=== PATIENT | male | born 1970 | race Caucasian/White ===

== ENCOUNTER 2018-06-10 16:58 | Inpatient (IN) | payer OTHER ==
[~2018-06-10] VITALS: Ht 162.6 cm; Wt 79.6 kg
[2018-06-10] MEDS ORDERED: ASPIRIN 81 MG TAB PO STA (17:25)
[2018-06-10] MEDS ORDERED: NITROGLYCERIN 2% 1 GM OINT PKT TD STA (17:25)
[2018-06-10] MEDS ORDERED: NITROGLYCERIN (SL) 0.4 MG TAB SL PRN (17:30)
[2018-06-10] MEDS: ASPIRIN 81 MG TAB PO SCH (19:00)
[2018-06-10] MEDS ORDERED: HYDROCODONE/APAP (5/325) TAB PO PRN (19:00)
[2018-06-10] MEDS ORDERED: NACL 0.9% 3 ML SYG IV SCH (19:00)
[2018-06-10] MEDS ORDERED: ZOLPIDEM 5 MG TAB PO PRN (19:00)
[2018-06-10] MEDS ORDERED: ACETAMINOPHEN 325 MG TAB PO PRN ×2 (19:00)
[2018-06-10] MEDS ORDERED: DOCUSATE SODIUM 100 MG CAP PO PRN (19:00)
[2018-06-10] MEDS ORDERED: ONDANSETRON 4 MG INJ IV PRN (19:00)
[2018-06-10] MEDS ORDERED: ONDANSETRON 4 MG TAB PO PRN (19:00)
[2018-06-10] MEDS ORDERED: LORAZEPAM 0.5 MG TAB PO PRN (19:00)
--- NOTE | 2018-06-10 19:08 | ERD ---
ER Documentation Chief Complaint Chief Complaint r. sided cp described as "pressure" rad to rue since last night HPI Patient is a 47-year-old male with diabetes who presents with chest discomfort. He said that he has chest pain in the midsternal area which radiates down his right arm. Its pressure-like pain which started last night. It worsened today. It comes and goes. He has never had this before. He has had no treatment as of yet. He has never had a stress test or cardiac catheterization. Upon review of old medical records this is the patient's first visit to the emergency department. His primary doctor is Dr. Irby. ROS All systems reviewed and are negative except as per history of present illness. Allergies Allergies: Coded Allergies: No Known Allergy (Unverified , 06/10/18) PMhx/Soc Medical and Surgical Hx: pt denies Surgical Hx Hx Miscellaneous Medical Probl: Yes (DM) Hx Alcohol Use: No Hx Substance Use: No Hx Tobacco Use: No Smoking Status: Never smoker FmHx Family History: diabetes, coronary disease Physical Exam Vitals Vital Signs Date Temp Pulse Resp B/P (MAP) Pulse Ox O2 O2 Flow FiO2 Time Delivery Rate 06/10/18 86 16 143/86 96 Room Air 18:37 (105) 06/10/18 Nasal 2 17:30 Cannula 06/10/18 97.5 96 20 162/87 97 17:02 (112) Physical Exam Const: No acute distress Head: Atraumatic Eyes: Normal Conjunctiva ENT: Normal External Ears, Nose and Mouth. Neck: Full range of motion. No meningismus. Resp: Clear to auscultation bilaterally Cardio: Regular rate and rhythm, no murmurs Abd: Soft, non tender, non distended. Normal bowel sounds Skin: No petechiae or rashes Back: No midline or flank tenderness Ext: No cyanosis, or edema Neur: Awake and alert Psych: Normal Mood and Affect Result Diagram: 06/10/18 1734 06/10/18 1734 Results 24 hrs Laboratory Tests Test 06/10/18 17:34 White Blood Count 7.4 10^3/ul Red Blood Count 5.12 10^6/ul Hemoglobin 14.2 g/dl Hematocrit 44.9 % Mean Corpuscular Volume 87.7 fl Mean Corpuscular Hemoglobin 27.7 pg Mean Corpuscular Hemoglobin Concent 31.6 g/dl Red Cell Distribution Width 12.6 % Platelet Count 225 10^3/UL Mean Platelet Volume 9.8 fl Immature Granulocytes % 1.100 % Neutrophils % 63.4 % Lymphocytes % 22.4 % Monocytes % 11.3 % Eosinophils % 1.1 % Basophils % 0.7 % Nucleated Red Blood Cells % 0.0 /100WBC Immature Granulocytes # 0.080 10^3/ul Neutrophils # 4.7 10^3/ul Lymphocytes # 1.7 10^3/ul Monocytes # 0.8 10^3/ul Eosinophils # 0.1 10^3/ul Basophils # 0.1 10^3/ul Nucleated Red Blood Cells # 0.0 10^3/ul Sodium Level 145 mmol/L Potassium Level 4.0 mmol/L Chloride Level 106 mmol/L Carbon Dioxide Level 31 mmol/L Anion Gap 8 Blood Urea Nitrogen 20 mg/dl Creatinine 1.04 mg/dl Est Glomerular Filtrat Rate mL/min > 60 mL/min Glucose Level 145 mg/dl Calcium Level 9.5 mg/dl Troponin I < 0.012 ng/ml Current Medications Medications Dose Sig/Clemencia Start Time Status Last (Trade) Ordered Route PRN Stop Time Admin Dose Reason Admin Aspirin 162 mg ONCE STAT 06/10/18 DC 06/10/18 (Aspirin) PO 17:25 17:40 06/10/18 17:27 1 inch ONCE STAT 06/10/18 DC 06/10/18 Nitroglycerin TD 17:25 17:41 06/10/18 17:27 (Nitroglyceri n 2% Oint) 1 tab Q5M UP TO 3 06/10/18 Nitroglycerin DOSES PRN 17:30 SL .CHEST (Nitroglyceri PAIN n (Sl Tab) 0.4 Mg) Ondansetron 4 mg ER BRIDGE 06/10/18 HCl (Zofran PRN IV 19:00 Inj) NAUSEA/VOMITI 06/11/18 18:59 NG 650 mg ER BRIDGE 06/10/18 Acetaminophen PRN PO 19:00 (Tylenol .MILD PAIN 06/11/18 18:59 Tab) 1-3 OR TEMP Procedures/MDM EKG read by me: Rate/Rhythm: Regular rate and rhythm at a rate of 95 Intervals: Normal Impression: No evidence of ischemia or arrhythmia Chest x-ray read by radiology. Patient is a 47-year-old male with diabetes and family history of cardiac disease who presents with chest pain. I am concerned for potential acute coronary syndrome. I doubt pneumonia, pneumothorax, pulmonary embolism, or aortic dissection. I spoke with Dr. Vail for admission to a telemetry observation bed. The patient was given aspirin nitroglycerin empirically. I spoke with Dr. Pablo from cardiology for consultation per Dr. Vail's request. Departure Diagnosis: Primary Impression: Chest pain Chest pain type: unspecified Qualified Codes: R07.9 - Chest pain, unspecified Condition: MANUEL Arguello MD Jun 10, 2018 19:08
[2018-06-10] MEDS ORDERED: GLUCOSE GEL 15 GRAM TUBE BUCCAL PRN (19:30)
[2018-06-10] MEDS ORDERED: GLUCAGON 1 MG INJ IM PRN (19:30)
[2018-06-10] MEDS ORDERED: DEXTROSE 50% 50 ML SYRINGE IV PRN ×2 (19:30)
[2018-06-10] MEDS ORDERED: GLUCOSE GEL 15 GRAM TUBE PO PRN ×2 (19:30)
[2018-06-10 20:42] VITALS: PULSE 103
[2018-06-10] MEDS: PIOGLITAZONE 30 MG TAB PO SCH (21:00)
[2018-06-10] MEDS ORDERED: ATORVASTATIN 20 MG TAB PO SCH (21:00)
[2018-06-10] MEDS: INSULIN ASPART [NOVOLOG] 3 ML PEN SC SCH (21:00)
[2018-06-10] MEDS ORDERED: HEPARIN 5,000 UNIT/1 ML VIAL SC SCH (21:00)
[2018-06-10 21:11] VITALS: BP 134/74; PULSE 91; RESP 18
[2018-06-10] MEDS: ACCU-CHEK XX SCH (21:20)
[2018-06-10] MEDS: FAMOTIDINE 20 MG TAB PO SCH (22:14)
[2018-06-10] MEDS: FISH OIL 1,000 MG CAP PO SCH (22:15)
[2018-06-10] MEDS: METOPROLOL 25 MG TAB PO SCH (22:16)
[2018-06-10 22:40] VITALS: Ht 162.6 cm; Wt 79.6 kg
[2018-06-11] VITALS (26 sets, daily range): BP systolic 97–140; BP diastolic 52–90; PULSE 20–89; RESP 10–89
[2018-06-11] MEDS: ACCU-CHEK XX SCH ×6 (07:25→19:48)
[2018-06-11] MEDS ORDERED: metFORMIN (XR) 500 MG TAB PO SCH (07:55)
[2018-06-11] MEDS: INSULIN ASPART [NOVOLOG] 3 ML PEN SC SCH ×4 (07:55→20:14)
--- NOTE | 2018-06-11 08:17 | CONS ---
Assessment/Plan Assessment/Plan Hospital Course (Demo Recall) NSTEMI: Classic crescendo angina symptoms with eventual rest pain and now elevated troponin (0.24). 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 He has been having one week of exertional chest pain with rest pain 2 days ago and again more severe yesterday prompting admission. His trops this am have increased to 0.24. He is asymptomatic. No h/o smoking. He is agreeable to cardiac cath for evaluation. per hPI Past Medical History per HPI Medications Current Medications IV Flush (NS 3 ml) 3 ml PER PROTOCOL IV ; Start 06/10/18 at 19:00 Lorazepam (Ativan) 0.5 mg Q8H PRN PO .ANXIETY; Start 06/10/18 at 19:00 Ondansetron HCl (Zofran Tab) 4 mg Q6H PRN PO NAUSEA/VOMITING; Start 06/10/18 at 19:00 Aspirin (Aspirin) 81 mg DAILY PO ; Start 06/10/18 at 19:00 Nitroglycerin (Nitroglycerin (Sl Tab) 0.4 Mg) 1 tab Q5M PRN SL .CHEST PAIN; Start 06/10/18 at 19:00 Acetaminophen (Tylenol Tab) 650 mg Q6H PRN PO .PAIN 1-3 OR TEMP; Start 06/10/18 at 19:00 Acetaminophen/ Hydrocodone Bitart (Herrick (5/325)) 1 tab Q6H PRN PO .PAIN 4-6; Start 06/10/18 at 19:00 Zolpidem Tartrate (Ambien) 5 mg QHS PRN PO .INSOMNIA; Start 06/10/18 at 19:00 Docusate Sodium (Colace) 100 mg Q12H PRN PO .CONSTIPATION; Start 06/10/18 at 19:00 Famotidine (Pepcid) 20 mg Q12 PO Last administered on 06/10/18at 22:14; Admin Dose 20 MG; Start 06/10/18 at 21:00 Heparin Sodium (Porcine) (Heparin (5000 Units/1ml)) 5,000 unit Q12 SC Last administered on 06/10/18at 22:30; Admin Dose 5,000 UNIT; Start 06/10/18 at 21:00 Metoprolol Tartrate (Lopressor) 12.5 mg BID PO Last administered on 06/10/18at 22:16; Admin Dose 12.5 MG; Start 06/10/18 at 21:00 Diagnostic Test (Pha) (Accu-Chek) 1 ea AC MEALS XX ; Start 06/11/18 at 07:00 Diagnostic Test (Pha) (Accu-Chek) 1 ea 2 HOURS AFTER MEALS XX ; Start 06/10/18 at 20:00 Metformin HCl (Glucophage Xr) 500 mg BID WITH MEALS PO ; Start 06/11/18 at 07:55 Pioglitazone HCl (Actos) 30 mg QHS PO ; Start 06/10/18 at 21:00 Atorvastatin Calcium (Lipitor) 20 mg QHS PO Last administered on 06/10/18at 22:15; Admin Dose 20 MG; Start 06/10/18 at 21:00 Empaglifozin (Jardiance) 10 mg DAILY@08 PO ; Start 06/11/18 at 08:00 Fish Oil (Fish Oil) 2,000 mg BID PO Last administered on 06/10/18at 22:15; Admin Dose 2,000 MG; Start 06/10/18 at 21:00 Insulin Aspart (Novolog Insulin Pen) NOVOLOG *MODERATE* ALGORITHM WITH MEALS BEDTIME SC ; Start 06/10/18 at 21:00 Miscellaneous Information 1 ea NOTE XX ; Start 06/10/18 at 19:30 Glucose (Glutose) 15 gm Q15M PRN PO DECREASED GLUCOSE; Start 06/10/18 at 19:30 Glucose (Glutose) 22.5 gm Q15M PRN PO DECREASED GLUCOSE; Start 06/10/18 at 19:30 Dextrose (D50w Syringe) 25 ml Q15M PRN IV DECREASED GLUCOSE; Start 06/10/18 at 19:30 Dextrose (D50w Syringe) 50 ml Q15M PRN IV DECREASED GLUCOSE; Start 06/10/18 at 19:30 Glucagon (Glucagen) 1 mg Q15M PRN IM DECREASED GLUCOSE; Start 06/10/18 at 19:30 Glucose (Glutose) 15 gm Q15M PRN BUCCAL DECREASED GLUCOSE; Start 06/10/18 at 19:30 Allergies: Coded Allergies: No Known Allergy (Unverified , 06/10/18) Social History Smoking Status: Former smoker Exam/Review of Systems Vital Signs Vitals Vital Signs Date Temp Pulse Resp B/P (MAP) Pulse Ox O2 O2 Flow FiO2 Time Delivery Rate 06/11/18 98.3 81 20 117/71 95 07:37 (86) 06/10/18 Room Air 21:11 06/10/18 2 17:30 Exam Constitutional: alert, oriented Psych: no complaints, nl mood/affect Head: normocephalic, atraumatic Neck: supple; No jvd Respiratory: clear to auscultation; No crackles/rales Cardiovascular: regular rate and rhythm; No edema, No systolic murmur Gastrointestinal: soft, non-tender; No distended Musculoskeletal: nl extremities to inspection 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: nl mental status, nl speech Skin: No rash or lesions Labs Result Diagram: 06/11/18 0614 06/10/18 1734 Results 24hrs Laboratory Tests Test 06/10/18 17:30 06/10/18 17:34 06/10/18 21:28 06/10/18 23:14 Creatine Kinase 306 H 302 H Creatinine Kinase MB 1.77 2.01 (Mass) White Blood Count 7.4 Red Blood Count 5.12 Hemoglobin 14.2 Hematocrit 44.9 Mean Corpuscular 87.7 Volume Mean Corpuscular 27.7 L Hemoglobin Mean Corpuscular 31.6 L Hemoglobin Concent Red Cell 12.6 Distribution Width Platelet Count 225 Mean Platelet Volume 9.8 Immature 1.100 H Granulocytes % Neutrophils % 63.4 Lymphocytes % 22.4 Monocytes % 11.3 H Eosinophils % 1.1 Basophils % 0.7 Nucleated Red Blood 0.0 Cells % Immature 0.080 H Granulocytes # Neutrophils # 4.7 Lymphocytes # 1.7 Monocytes # 0.8 Eosinophils # 0.1 Basophils # 0.1 Nucleated Red Blood 0.0 Cells # Sodium Level 145 H Potassium Level 4.0 Chloride Level 106 Carbon Dioxide Level 31 Anion Gap 8 Blood Urea Nitrogen 20 Creatinine 1.04 Est Glomerular > 60 Filtrat Rate mL/min Glucose Level 145 Calcium Level 9.5 Troponin I < 0.012 0.077 Bedside Glucose 115 Creatine Kinase 0.7 Index Test 06/11/18 06:14 06/11/18 07:35 White Blood Count 6.3 Red Blood Count 4.64 L Hemoglobin 13.0 L Hematocrit 40.7 L Mean Corpuscular 87.7 Volume Mean Corpuscular 28.0 L Hemoglobin Mean Corpuscular 31.9 L Hemoglobin Concent Red Cell 12.7 Distribution Width Platelet Count 193 Mean Platelet Volume 10.2 Immature 0.900 H Granulocytes % Neutrophils % 59.8 Lymphocytes % 27.9 Monocytes % 9.5 Eosinophils % 1.4 Basophils % 0.5 Nucleated Red Blood 0.0 Cells % Immature 0.060 H Granulocytes # Neutrophils # 3.8 Lymphocytes # 1.8 Monocytes # 0.6 Eosinophils # 0.1 Basophils # 0.0 Nucleated Red Blood 0.0 Cells # Creatine Kinase 309 H Creatine Kinase 0.8 Index Creatinine Kinase MB 2.46 H (Mass) Troponin I 0.242 *H Bedside Glucose 112 Imaging Imaging EKG: sinus, no acute ST changes Medications Medications Current Medications IV Flush (NS 3 ml) 3 ml PER PROTOCOL IV ; Start 06/10/18 at 19:00 Lorazepam (Ativan) 0.5 mg Q8H PRN PO .ANXIETY; Start 06/10/18 at 19:00 Ondansetron HCl (Zofran Tab) 4 mg Q6H PRN PO NAUSEA/VOMITING; Start 06/10/18 at 19:00 Aspirin (Aspirin) 81 mg DAILY PO ; Start 06/10/18 at 19:00 Nitroglycerin (Nitroglycerin (Sl Tab) 0.4 Mg) 1 tab Q5M PRN SL .CHEST PAIN; Start 06/10/18 at 19:00 Acetaminophen (Tylenol Tab) 650 mg Q6H PRN PO .PAIN 1-3 OR TEMP; Start 06/10/18 at 19:00 Acetaminophen/ Hydrocodone Bitart (Herrick (5/325)) 1 tab Q6H PRN PO .PAIN 4-6; Start 06/10/18 at 19:00 Zolpidem Tartrate (Ambien) 5 mg QHS PRN PO .INSOMNIA; Start 06/10/18 at 19:00 Docusate Sodium (Colace) 100 mg Q12H PRN PO .CONSTIPATION; Start 06/10/18 at 19:00 Famotidine (Pepcid) 20 mg Q12 PO Last administered on 06/10/18at 22:14; Admin Dose 20 MG; Start 06/10/18 at 21:00 Heparin Sodium (Porcine) (Heparin (5000 Units/1ml)) 5,000 unit Q12 SC Last administered on 06/10/18at 22:30; Admin Dose 5,000 UNIT; Start 06/10/18 at 21:00 Metoprolol Tartrate (Lopressor) 12.5 mg BID PO Last administered on 06/10/18at 22:16; Admin Dose 12.5 MG; Start 06/10/18 at 21:00 Diagnostic Test (Pha) (Accu-Chek) 1 ea AC MEALS XX ; Start 06/11/18 at 07:00 Diagnostic Test (Pha) (Accu-Chek) 1 ea 2 HOURS AFTER MEALS XX ; Start 06/10/18 at 20:00 Metformin HCl (Glucophage Xr) 500 mg BID WITH MEALS PO ; Start 06/11/18 at 07:55 Pioglitazone HCl (Actos) 30 mg QHS PO ; Start 06/10/18 at 21:00 Atorvastatin Calcium (Lipitor) 20 mg QHS PO Last administered on 06/10/18at 22:15; Admin Dose 20 MG; Start 06/10/18 at 21:00 Empaglifozin (Jardiance) 10 mg DAILY@08 PO ; Start 06/11/18 at 08:00 Fish Oil (Fish Oil) 2,000 mg BID PO Last administered on 06/10/18at 22:15; Admin Dose 2,000 MG; Start 06/10/18 at 21:00 Insulin Aspart (Novolog Insulin Pen) NOVOLOG *MODERATE* ALGORITHM WITH MEALS BEDTIME SC ; Start 06/10/18 at 21:00 Miscellaneous Information 1 ea NOTE XX ; Start 06/10/18 at 19:30 Glucose (Glutose) 15 gm Q15M PRN PO DECREASED GLUCOSE; Start 06/10/18 at 19:30 Glucose (Glutose) 22.5 gm Q15M PRN PO DECREASED GLUCOSE; Start 06/10/18 at 19:30 Dextrose (D50w Syringe) 25 ml Q15M PRN IV DECREASED GLUCOSE; Start 06/10/18 at 19:30 Dextrose (D50w Syringe) 50 ml Q15M PRN IV DECREASED GLUCOSE; Start 06/10/18 at 19:30 Glucagon (Glucagen) 1 mg Q15M PRN IM DECREASED GLUCOSE; Start 06/10/18 at 19:30 Glucose (Glutose) 15 gm Q15M PRN BUCCAL DECREASED GLUCOSE; Start 06/10/18 at 1 9:30 NOEL TEIXEIRA Jun 11, 2018 08:17
[2018-06-11] MEDS ORDERED: VERAPAMIL 5 MG INJ ONE (08:27)
[2018-06-11] MEDS ORDERED: MIDAZOLAM 1 MG/ML 2 ML INJ ONE (08:27)
[2018-06-11] MEDS ORDERED: FENTAnyl 50 MCG/ML VIAL ONE (08:27)
[2018-06-11] MEDS ORDERED: LIDOCAINE 1% (MDV) 20 ML INJ ONE (08:27)
[2018-06-11] MEDS ORDERED: HEPARIN 1000 UNITS/NS (A-LINE) 1,000 ML ONE (08:27)
[2018-06-11] MEDS ORDERED: HEPARIN 1000 UNITS/ML 10 ML INJ ONE (08:27)
[2018-06-11] MEDS ORDERED: NITROGLYCERIN (IC) 100 MCG/ML INJ ONE (08:28)
[2018-06-11] MEDS ORDERED: IOHEXOL 350MG/ML 50 ML BTL ONE (09:37)
--- NOTE | 2018-06-11 10:23 | OPR ---
Date/Time of Note Date/Time of Note DATE: 06/11/18 TIME: 10:09 Operative Report Procedure Date: Jun 11, 2018 Preoperative Diagnosis NSTEMI Postoperative Diagnosis NSTEMI Operation/Procedure Performed see details Surgeon see signature line Can Machine Operator none Anesthesia Type: moderate sedation Estimated Blood Loss: minimal Transfusion none Specimen none Grafts/Implants none Complications none Procedure Description Procedure Date:06/11/18 Cracker Off/surgeon:Scottie Pablo MD. Procedures Performed: 1)Left heart catheterization with selective left and right coronary angiography. 2)Left ventricle angiography 3)RIght femoral angiography with Perclose closure device Pre-operative Diagnosis:NSTEMI Post-operative Diagnosis:NSTEMI Indications: 47 yo M with DM, HL, presenting with chest pain, found to have an NSTEMI. Description of Procedure: After informed consent, the patient was brought to the cardiac catheterization lab. The procedure site was prepped and draped in usual manner. The patient was premedicated with versed 1 mg and fentanyl 50 mcg. 2mL lidocaine was injected into the right wrist. Next using the posterior wall technique, the 6/5 paragu[place] sheath was inserted into the right radial artery. The J wire met resistance so it was switched for a baby J glide instead. It was noted he had a radial artery loop which was eventually straightened out with the wire and the JR catheter advanced and RCA images obtained. The JL would not advance and was causing discomfort. Right arm angiography revealed that the wire was connecting through a small artery or there was significant spasm. In any case, this was aborted and the access switched to right femoral instead. Through the Seldinger technique, the 6 paragu[place] sheath was inserted into the right femoral artery. Next using the JL3.5, selective angiography of the left coron bella artery was obtained. The pigtail was then advanced into the ventricle and hemodynamics obtained. Left ventricle angiography was obtained. Next all equipment was removed and hemostasis was obtained by TR band in the right wrist and Perclose in the right groin after right femoral angiography revealed insertion into the common femoral. Findings: Anatomy/Hemodynamics: Left main: normal LAD:mid 80% right after a large diagonal Diagonal:large vessel, luminal irregularities Circumflex:luminal irregularities Obtuse marginal:large trifurcating vessel with prox 100% HEAD UP OPERATOR HELPER with left-left collaterals to 2 of the inferior branches RCA:luminal irregularities PDA: mid 95-99% PLV:luminal irregularities LV angiography:EF 60%, very mild inferior hypokinesis LV-Ao: no significant gradient LVEDP:10 mmHg Contrast used:75 mL Fluoroscopy time:5 min Estimated blood loss<10 mL. Specimen: none Grafts/implants: none Complications: none Assessment: NSTEMI/CAD: Three vessel CAD in a diabetic patient is appropriate for CABG eval. Though he is young and the lesions are amenable to PCI, he may benefit most from CABG DM HL Plan: -CABG eval -ASA, lipitor -imdur -heparin drip 6 hours post procedure if groin and wrist are ok as the PDA lesion appears tight and possibly unstable. No current symptoms SCOTTIE PABLO Jun 11, 2018 10:23
[2018-06-11] MEDS ORDERED: HEPARIN 25000 UNITS/250 ML 250 ML IV SCH (10:30)
--- NOTE | 2018-06-11 11:37 | RADRPT ---
Echocardiogram Report Patient Name: GUS SERRANOPatient ID: [id number] : 1970 (47y 11m)Study Date: 06/11/2018 7:18:54 AM Gender: MAccession #: [id number] Tech: Marcelo Childs RDCS Location: [facility] Ref.Physician: SRIKANTH HERNANDEZ Height(Cm): BSA: Weight(Kg): Quality: AdequateAccount #: Procedures: Echocardiographic Report: Transthoracic echocardiogram with complete 2D, M-Mode, and doppler examination. Indications: Chest Pain. Measurements: 2D/M Mode Doppler Measurement Value Normal Range Measurement Value Normal Range LVIDd 2D 3.6 [ 4.2 - 5.8 ] cm AV Peak Garry 1.2 [ 100.0 - 170.0 ] cm/sec LVIDs 2D 2.8 [ 2.5 - 4.0 ] cm AV Peak PG 6.0 [ 2.0 - 9.0 ] mmHg LVPWd 2D 1.2 [ 0.6 - 1.0 ] cm LVOT Peak Garry 0.9 [ 70.0 - 110.0 ] cm/sec IVSd 2D 1.3 [ 0.6 - 1.0 ] cm LVOT Peak PG 3.0 [ 2.0 - 6.0 ] mmHg AoR Diam 2D 2.7 [ 2.6 - 3.4 ] cm MV E Peak Garry 0.6 [ 60.0 - 130.0 ] cm/sec EDV 2D 55.5 [ 62.0 - 150.0 ] ml MV A Peak Garry 0.7 [ 100.0 - 120.0 ] cm/sec ESV 2D 30.9 [ 21.0 - 61.0 ] ml MV E/A 0.9 [ 0.8 - 1.5 ] ratio EF 2D 44.3 [ 52.0 - 72.0 ] percent MV Decel Time 165 [ 104 - 258 ] msec LA Dimen 2D 2.7 [ 3.0 - 4.0 ] cm Lat E` Garry 0.1 [ 10.0 - 15.0 ] cm/sec Lateral E/E` 6.0 [ 1.0 - 2.0 ] ratio MV E/A 0.9 [ 0.8 - 1.5 ] ratio Findings: Left Ventricle: Normal left ventricular systolic function. Normal left ventricular cavity size. Mild concentric left ventricular hypertrophy. Ejection fraction is visually estimated at 60 %. Tissue Doppler/Mitral Doppler indices are within normal limits. Right Ventricle: Normal right ventricular size. Normal right ventricular systolic function. Left Atrium: The left atrium is normal in size. Right Atrium: There is mild enlargement of right atrium. Mitral Valve: Normal appearance of the mitral valve. Normal appearance and function of the mitral valve with trace physiologic regurgitation. Aortic Valve: Normal appearance of the aortic valve. No significant aortic stenosis or insufficiency. Tricuspid Valve: Normal appearance of the tricuspid valve. Unable to obtain RVSP due to minimal presence of tricuspid regurgitation. No evidence of tricuspid regurgitation. Pulmonic Valve: Normal pulmonic valve appearance. Pericardium: Normal pericardium with no significant pericardial effusion. Aorta: Normal aortic root. IVC: Normal size and normal respiratory collapse consistent with normal right atrial pressure. Conclusions: Normal left ventricular systolic function. Normal left ventricular cavity size. Mild concentric left ventricular hypertrophy. Ejection fraction is visually estimated at 60 %. Tissue Doppler/Mitral Doppler indices are within normal limits. No significant valvular stenosis or regurgitation seen. Unable to obtain RVSP due to minimal presence of tricuspid regurgitation. Normal size and normal respiratory collapse consistent with normal right atrial pressure. Electronically Signed By: Scottie Pablo 2018-06-11 11:37:12 PDT
[2018-06-11] MEDS: NITROGLYCERIN (SL) 0.4 MG TAB SL PRN ×2 (12:15→14:06)
[2018-06-11] MEDS: ASPIRIN 81 MG TAB PO SCH (12:41)
[2018-06-11] MEDS: FISH OIL 1,000 MG CAP PO SCH ×2 (12:41→20:13)
[2018-06-11] MEDS: FAMOTIDINE 20 MG TAB PO SCH ×2 (12:43→20:13)
[2018-06-11] MEDS: FENOFIBRATE 145 MG TAB PO SCH (12:43)
[2018-06-11] MEDS: METOPROLOL 25 MG TAB PO SCH ×2 (12:43→20:14)
[2018-06-11] MEDS: EMPAGLIFLOZIN 10 MG TABLET PO SCH (13:03)
[2018-06-11] MEDS: ISOSORBIDE MONONITRATE(SR)30 MG TAB PO SCH (13:03)
[2018-06-11] MEDS ORDERED: HEPARIN 1000 UNITS/ML 10 ML INJ IV PRN (16:00)
[2018-06-11] MEDS ORDERED: HEPARIN 1000 UNITS/ML 10 ML INJ IV ONE (16:00)
--- NOTE | 2018-06-11 16:05 | CONS ---
Assessment/Plan Assessment/Plan Assessment/Plan (Daily) 47 year old male admitted with NSTEMI and found to have diffuse 3V CAD. His anatomy is such that would make him a poor candidate for surgical revascularization. I would recommend medical management or PCI of PDA and medical management. His OM and LAD are diffusely diseased and his PDA is quite distal for surgical revascularization Consultation Date/Type/Reason Admit Date/Time Jun 10, 2018 at 18:46 Date of Consultation: Jun 11, [address] surgery Reason for Consultation eval for cabg Date/Time of Note DATE: 06/11/18 TIME: 15:59 Hx of Present Illness 47 year old male with history of DM admitted with chest pain and ruled in for NSTEMI. Cath today shows distal PDA stenosis of 90%, occluded OM, very diffusely diseased and diffusely diseased bifid LAD. EF normal. We are asked to see patient regarding CABG. ENT: no complaints Respiratory: no complaints Cardiovascular: chest pain Gastrointestinal: no complaints Genitourinary: no complaints Musculoskeletal: no complaints Skin: no complaints Neurologic: no complaints Endocrine: no complaints Lymphatic: no complaints Psychological: no complaints, nl mood/affect Immunologic: no complaints Past Medical History Medical History: coronary artery disease, diabetes, high cholesterol Medications Current Medications IV Flush (NS 3 ml) 3 ml PER PROTOCOL IV ; Start 06/10/18 at 19:00 Lorazepam (Ativan) 0.5 mg Q8H PRN PO .ANXIETY; Start 06/10/18 at 19:00 Ondansetron HCl (Zofran Tab) 4 mg Q6H PRN PO NAUSEA/VOMITING; Start 06/10/18 at 19:00 Aspirin (Aspirin) 81 mg DAILY PO Last administered on 06/11/18at 12:41; Admin Dose 81 MG; Start 06/10/18 at 19:00 Nitroglycerin (Nitroglycerin (Sl Tab) 0.4 Mg) 1 tab Q5M PRN SL .CHEST PAIN Last administered on 06/11/18at 14:06; Admin Dose 1 TAB; Start 06/10/18 at 19:00 Acetaminophen (Tylenol Tab) 650 mg Q6H PRN PO .PAIN 1-3 OR TEMP; Start 06/10/18 at 19:00 Acetaminophen/ Hydrocodone Bitart ([place] (5/325)) 1 tab Q6H PRN PO .PAIN 4-6; Start 06/10/18 at 19:00 Zolpidem Tartrate (Ambien) 5 mg QHS PRN PO .INSOMNIA; Start 06/10/18 at 19:00 Docusate Sodium (Colace) 100 mg Q12H PRN PO .CONSTIPATION; Start 06/10/18 at 19:00 Famotidine (Pepcid) 20 mg Q12 PO Last administered on 06/11/18at 12:43; Admin Dose 20 MG; Start 06/10/18 at 21:00 Metoprolol Tartrate (Lopressor) 12.5 mg BID PO Last administered on 06/11/18at 12:43; Admin Dose 12.5 MG; Start 06/10/18 at 21:00 Diagnostic Test (Pha) (Accu-Chek) 1 ea AC MEALS XX Last administered on 06/11/18at 11:20; Admin Dose 1 EA; Start 06/11/18 at 07:00 Diagnostic Test (Pha) (Accu-Chek) 1 ea 2 HOURS AFTER MEALS XX ; Start 06/10/18 at 20:00 Pioglitazone HCl (Actos) 30 mg QHS PO ; Start 06/10/18 at 21:00 Empaglifozin (Jardiance) 10 mg DAILY@08 PO Last administered on 06/11/18at 13:03; Admin Dose 10 MG; Start 06/11/18 at 08:00 Fish Oil (Fish Oil) 2,000 mg BID PO Last administered on 06/11/18at 12:41; Admin Dose 2,000 MG; Start 06/10/18 at 21:00 Insulin Aspart (Novolog Insulin Pen) NOVOLOG *MODERATE* ALGORITHM WITH MEALS BEDTIME SC ; Start 06/10/18 at 21:00 Miscellaneous Information 1 ea NOTE XX ; Start 06/10/18 at 19:30 Glucose (Glutose) 15 gm Q15M PRN PO DECREASED GLUCOSE; Start 06/10/18 at 19:30 Glucose (Glutose) 22.5 gm Q15M PRN PO DECREASED GLUCOSE; Start 06/10/18 at 19:30 Dextrose (D50w Syringe) 25 ml Q15M PRN IV DECREASED GLUCOSE; Start 06/10/18 at 19:30 Dextrose (D50w Syringe) 50 ml Q15M PRN IV DECREASED GLUCOSE; Start 06/10/18 at 19:30 Glucagon (Glucagen) 1 mg Q15M PRN IM DECREASED GLUCOSE; Start 06/10/18 at 19:30 Glucose (Glutose) 15 gm Q15M PRN BUCCAL DECREASED GLUCOSE; Start 06/10/18 at 19:30 Fenofibrate (Tricor) 145 mg DAILY PO Last administered on 06/11/18at 12:43; Admin Dose 145 MG; Start 06/11/18 at 09:00 Isosorbide Mononitrate (Imdur) 30 mg DAILY PO Last administered on 06/11/18at 13:03; Admin Dose 30 MG; Start 06/11/18 at 10:30 Atorvastatin Calcium (Lipitor) 40 mg QHS PO ; Start 06/11/18 at 21:00 Heparin Sodium (Porcine) (Heparin (1000 Units/ml)) 4,000 unit ONCE ONCE IV ; Start 06/11/18 at 16:00; Stop 06/11/18 at 16:01 Heparin Sodium (Porcine) (Heparin (1000 Units/ml)) 4,000 unit PER PROTOCOL PRN IV aPTT<47; Start 06/11/18 at 16:00 Heparin Sodium (Porcine) 250 ml @ 0 mls/hr PER PROTOCOL IV ; Start 06/11/18 at 10:30 Insulin Human Regular 100 unit/ Sodium Chloride 100 ml @ 0 mls/hr Q0M ONCE IVPB ; Start 06/12/18 at 11:30; Stop 06/12/18 at 11:31 Norepinephrine 250 ml @ 0 mls/hr ONCE ONCE IV ; Start 06/12/18 at 11:30; Stop 06/12/18 at 11:31 Epinephrine 4 mg/ Dextrose 250 ml @ 0 mls/hr Q0M ONCE IV ; Start 06/12/18 at 11:30; Stop 06/12/18 at 11:31 Phenylephrine HCl 250 ml @ 0 mls/hr ONCE ONCE IV ; Start 06/12/18 at 11:30; Stop 06/12/18 at 11:31 Aspirin (Aspirin) 600 mg ONCE ONCE [place] ; Start 06/12/18 at 11:30; Stop 06/12/18 at 11:31 Heparin Sodium (Porcine) 93067 unit/Milrinone Lactate 10 mg/ Sodium Chloride 1,011 ml @ 0 mls/hr ONCE ONCE SC ; Start 06/12/18 at 11:30; Stop 06/12/18 at 11:31 Milrinone Lactate 2 mg/Sodium Chloride 52 ml @ 0 mls/hr ONCE ONCE IV ; Start 06/12/18 at 11:30; Stop 06/12/18 at 11:31 Allergies: Coded Allergies: No Known Allergy (Unverified , 06/10/18) Past Surgical History Past Surgical Hx: no surgical history Family History Significant Family History: no pertinent family hx Social History Alcohol Use: rarely Smoking Status: Former smoker Drug Use: none Exam/Review of Systems Exam Vitals Vital Signs Date Temp Pulse Resp B/P (MAP) Pulse Ox O2 O2 Flow FiO2 Time Delivery Rate 06/11/18 98.4 73 20 126/82 96 12:23 (97) 06/11/18 Room Air 11:56 06/10/18 2 17:30 Constitutional: alert, oriented, well developed Psych: no complaints, nl mood/affect Head: normocephalic, atraumatic Eyes: nl conjunctiva, EOMI, nl lids, nl sclera, PERRL ENMT: nl external ears & nose, nl lips & teeth, nl nasal mucosa & septum Neck: supple, non-tender Respiratory: clear to auscultation, normal air movement Cardiovascular: regular rate and rhythm, nl pulses Gastrointestinal: soft, nl liver, spleen, non-tender Musculoskeletal: nl extremities to inspection, nl gait and stance Extremities: normal pulses 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: EN[employer]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 intact, nl mental status, nl speech, nl strength Skin: nl turgor; No rash or lesions Lymph: nl lymph nodes Results Result Diagram: 06/11/18 1245 06/11/18 0614 Results 24hrs Laboratory Tests Test 06/10/18 17:30 06/10/18 17:34 06/10/18 21:28 06/10/18 23:14 Creatine Kinase 306 H 302 H Creatinine Kinase MB 1.77 2.01 (Mass) White Blood Count 7.4 Red Blood Count 5.12 Hemoglobin 14.2 Hematocrit 44.9 Mean Corpuscular 87.7 Volume Mean Corpuscular 27.7 L Hemoglobin Mean Corpuscular 31.6 L Hemoglobin Concent Red Cell 12.6 Distribution Width Platelet Count 225 Mean Platelet Volume 9.8 Immature 1.100 H Granulocytes % Neutrophils % 63.4 Lymphocytes % 22.4 Monocytes % 11.3 H Eosinophils % 1.1 Basophils % 0.7 Nucleated Red Blood 0.0 Cells % Immature 0.080 H Granulocytes # Neutrophils # 4.7 Lymphocytes # 1.7 Monocytes # 0.8 Eosinophils # 0.1 Basophils # 0.1 Nucleated Red Blood 0.0 Cells # Sodium Level 145 H Potassium Level 4.0 Chloride Level 106 Carbon Dioxide Level 31 Anion Gap 8 Blood Urea Nitrogen 20 Creatinine 1.04 Est Glomerular > 60 Filtrat Rate mL/min Glucose Level 145 Calcium Level 9.5 Troponin I < 0.012 0.077 Bedside Glucose 115 Creatine Kinase 0.7 Index Test 06/11/18 06:14 06/11/18 07:35 06/11/18 10:50 06/11/18 12:45 White Blood Count 6.3 8.2 # Red Blood Count 4.64 L 4.93 Hemoglobin 13.0 L 13.7 L Hematocrit 40.7 L 43.0 Mean Corpuscular 87.7 87.2 Volume Mean Corpuscular 28.0 L 27.8 L Hemoglobin Mean Corpuscular 31.9 L 31.9 L Hemoglobin Concent Red Cell 12.7 12.8 Distribution Width Platelet Count 193 231 Mean Platelet Volume 10.2 10.3 Immature 0.900 H 0.900 H Granulocytes % Neutrophils % 59.8 67.9 Lymphocytes % 27.9 21.2 Monocytes % 9.5 8.8 Eosinophils % 1.4 0.7 Basophils % 0.5 0.5 Nucleated Red Blood 0.0 0.0 Cells % Immature 0.060 H 0.070 H Granulocytes # Neutrophils # 3.8 5.6 Lymphocytes # 1.8 1.7 Monocytes # 0.6 0.7 Eosinophils # 0.1 0.1 Basophils # 0.0 0.0 Nucleated Red Blood 0.0 0.0 Cells # Sodium Level 144 Potassium Level 4.1 Chloride Level 109 Carbon Dioxide Level 27 Anion Gap 8 Blood Urea Nitrogen 19 Creatinine 0.89 Est Glomerular > 60 Filtrat Rate mL/min Glucose Level 108 Hemoglobin A1c 7.5 H Calcium Level 9.3 Total Bilirubin 0.2 Direct Bilirubin 0.00 Indirect Bilirubin 0.2 Aspartate Amino 24 Transf (AST/SGOT) Alanine 47 Aminotransferase (AL T/SGPT) Alkaline Phosphatase 41 L Creatine Kinase 309 H Pending Creatine Kinase 0.8 Pending Index Creatinine Kinase MB 2.46 H 2.12 (Mass) Troponin I 0.242 *H 0.111 Total Protein 6.1 Albumin 3.8 Globulin 2.30 Albumin/Globulin 1.65 Ratio Bedside Glucose 112 118 Prothrombin Time 11.8 L Prothrombin Time 0.9 Ratio INR International 0.86 Normalized Ratio Activated 25.8 Partial Thromboplast Time Test 06/11/18 15:03 Bedside Glucose 174 Medications Medication Current Medications IV Flush (NS 3 ml) 3 ml PER PROTOCOL IV ; Start 06/10/18 at 19:00 Lorazepam (Ativan) 0.5 mg Q8H PRN PO .ANXIETY; Start 06/10/18 at 19:00 Ondansetron HCl (Zofran Tab) 4 mg Q6H PRN PO NAUSEA/VOMITING; Start 06/10/18 at 19:00 Aspirin (Aspirin) 81 mg DAILY PO Last administered on 06/11/18at 12:41; Admin Dose 81 MG; Start 06/10/18 at 19:00 Nitroglycerin (Nitroglycerin (Sl Tab) 0.4 Mg) 1 tab Q5M PRN SL .CHEST PAIN Last administered on 06/11/18at 14:06; Admin Dose 1 TAB; Start 06/10/18 at 19:00 Acetaminophen (Tylenol Tab) 650 mg Q6H PRN PO .PAIN 1-3 OR TEMP; Start 06/10/18 at 19:00 Acetaminophen/ Hydrocodone Bitart ([place] (5/325)) 1 tab Q6H PRN PO .PAIN 4-6; Start 06/10/18 at 19:00 Zolpidem Tartrate (Ambien) 5 mg QHS PRN PO .INSOMNIA; Start 06/10/18 at 19:00 Docusate Sodium (Colace) 100 mg Q12H PRN PO .CONSTIPATION; Start 06/10/18 at 19:00 Famotidine (Pepcid) 20 mg Q12 PO Last administered on 06/11/18at 12:43; Admin Dose 20 MG; Start 06/10/18 at 21:00 Metoprolol Tartrate (Lopressor) 12.5 mg BID PO Last administered on 06/11/18 12:43; Admin Dose 12.5 MG; Start 06/10/18 at 21:00 Diagnostic Test (Pha) (Accu-Chek) 1 ea AC MEALS XX Last administered on 06/11/18at 11:20; Admin Dose 1 EA; Start 06/11/18 at 07:00 Diagnostic Test (Pha) (Accu-Chek) 1 ea 2 HOURS AFTER MEALS XX ; Start 06/10/18 at 20:00 Pioglitazone HCl (Actos) 30 mg QHS PO ; Start 06/10/18 at 21:00 Empaglifozin (Jardiance) 10 mg DAILY@08 PO Last administered on 06/11/18at 13:03; Admin Dose 10 MG; Start 06/11/18 at 08:00 Fish Oil (Fish Oil) 2,000 mg BID PO Last administered on 06/11/18at 12:41; Admin Dose 2,000 MG; Start 06/10/18 at 21:00 Insulin Aspart (Novolog Insulin Pen) NOVOLOG *MODERATE* ALGORITHM WITH MEALS BEDTIME SC ; Start 06/10/18 at 21:00 Miscellaneous Information 1 ea NOTE XX ; Start 06/10/18 at 19:30 Glucose (Glutose) 15 gm Q15M PRN PO DECREASED GLUCOSE; Start 06/10/18 at 19:30 Glucose (Glutose) 22.5 gm Q15M PRN PO DECREASED GLUCOSE; Start 06/10/18 at 19:30 Dextrose (D50w Syringe) 25 ml Q15M PRN IV DECREASED GLUCOSE; Start 06/10/18 at 19:30 Dextrose (D50w Syringe) 50 ml Q15M PRN IV DECREASED GLUCOSE; Start 06/10/18 at 19:30 Glucagon (Glucagen) 1 mg Q15M PRN IM DECREASED GLUCOSE; Start 06/10/18 at 19:30 Glucose (Glutose) 15 gm Q15M PRN BUCCAL DECREASED GLUCOSE; Start 06/10/18 at 19:30 Fenofibrate (Tricor) 145 mg DAILY PO Last administered on 06/11/18at 12:43; Admin Dose 145 MG; Start 06/11/18 at 09:00 Isosorbide Mononitrate (Imdur) 30 mg DAILY PO Last administered on 06/11/18at 13:03; Admin Dose 30 MG; Start 06/11/18 at 10:30 Atorvastatin Calcium (Lipitor) 40 mg QHS PO ; Start 06/11/18 at 21:00 Heparin Sodium (Porcine) (Heparin (1000 Units/ml)) 4,000 unit ONCE ONCE IV ; Start 06/11/18 at 16:00; Stop 06/11/18 at 16:01 Heparin Sodium (Porcine) (Heparin (1000 Units/ml)) 4,000 unit PER PROTOCOL PRN IV aPTT<47; Start 06/11/18 at 16:00 Heparin Sodium (Porcine) 250 ml @ 0 mls/hr PER PROTOCOL IV ; Start 06/11/18 at 10:30 Insulin Human Regular 100 unit/ Sodium Chloride 100 ml @ 0 mls/hr Q0M ONCE IVPB ; Start 06/12/18 at 11:30; Stop 06/12/18 at 11:31 Norepinephrine 250 ml @ 0 mls/hr ONCE ONCE IV ; Start 06/12/18 at 11:30; Stop 06/12/18 at 11:31 Epinephrine 4 mg/ Dextrose 250 ml @ 0 mls/hr Q0M ONCE IV ; Start 06/12/18 at 11:30; Stop 06/12/18 at 11:31 Phenylephrine HCl 250 ml @ 0 mls/hr ONCE ONCE IV ; Start 06/12/18 at 11:30; Stop 06/12/18 at 11:31 Aspirin (Aspirin) 600 mg ONCE ONCE [place] ; Start 06/12/18 at 11:30; Stop 06/12/18 at 11:31 Heparin Sodium (Porcine) 70691 unit/Milrinone Lactate 10 mg/ Sodium Chloride 1,011 ml @ 0 mls/hr ONCE ONCE SC ; Start 06/12/18 at 11:30; Stop 06/12/18 at 11:31 Milrinone Lactate 2 mg/Sodium Chloride 52 ml @ 0 mls/hr ONCE ONCE IV ; Start 06/12/18 at 11:30; Stop 06/12/18 at 11:31 AG FUNG MD Jun 11, 2018 16:05
[2018-06-11] MEDS ORDERED: CEFAZOLIN 2 GM/50 ML (PMX) 50 ML IVPB ONE (17:00)
[2018-06-11] MEDS: PIOGLITAZONE 30 MG TAB PO SCH (20:13)
[2018-06-11] MEDS ORDERED: ATORVASTATIN 20 MG TAB PO SCH ×2 (21:00)
--- NOTE | 2018-06-11 22:07 | HP ---
Date/Time of Note Date/Time of Note DATE: 06/11/18 TIME: 21:54 Assessment/Plan VTE Prophylaxis Risk score (from Ns)>0 risk: 2 SCD applied (from [facility]): Yes Pharmacological prophylaxis: heparin Lines/Catheters IV Catheter Type ([facility]): Peripheral IV Assessment/Plan Problems: (1) NSTEMI (non-ST elevated myocardial infarction) Status: Acute Comment: 3-vessel disease identified by cardiology on L heart cath today. (2) 3-vessel CAD Status: Chronic Comment: To OR tomorrow w/ CT-S for CABG. (3) Type 2 diabetes mellitus with other specified complication Status: Chronic Comment: A1c > 7% b/c pt. unable to fill Rx for his SGLT-2 inhibitor. Pt. is on once-weekly GLP-1 agonist due on Monday and this can be continued in-house. Cont. pioglitazone, replace home farxiga (which he was not taking) w/ jardiance. Resume metformin post-op. Monitor glucose. Poss. insulin drip post-op. (4) Mixed hyperlipidemia Status: Chronic Comment: Per cardiology atorvastatin increased to 80 mg. Cont. after surgery. Result Diagram: 06/11/18 1245 06/11/18 0614 Results 24hrs Laboratory Tests Test 06/10/18 23:14 06/11/18 06:14 06/11/18 07:35 06/11/18 10:50 Creatine Kinase 302 H 309 H Creatine Kinase 0.7 0.8 Index Creatinine Kinase MB 2.01 2.46 H (Mass) Troponin I 0.077 0.242 *H White Blood Count 6.3 Red Blood Count 4.64 L Hemoglobin 13.0 L Hematocrit 40.7 L Mean Corpuscular 87.7 Volume Mean Corpuscular 28.0 L Hemoglobin Mean Corpuscular 31.9 L Hemoglobin Concent Red Cell 12.7 Distribution Width Platelet Count 193 Mean Platelet Volume 10.2 Immature 0.900 H Granulocytes % Neutrophils % 59.8 Lymphocytes % 27.9 Monocytes % 9.5 Eosinophils % 1.4 Basophils % 0.5 Nucleated Red Blood 0.0 Cells % Immature 0.060 H Granulocytes # Neutrophils # 3.8 Lymphocytes # 1.8 Monocytes # 0.6 Eosinophils # 0.1 Basophils # 0.0 Nucleated Red Blood 0.0 Cells # Sodium Level 144 Potassium Level 4.1 Chloride Level 109 Carbon Dioxide Level 27 Anion Gap 8 Blood Urea Nitrogen 19 Creatinine 0.89 Est Glomerular > 60 Filtrat Rate mL/min Glucose Level 108 Hemoglobin A1c 7.5 H Calcium Level 9.3 Total Bilirubin 0.2 Direct Bilirubin 0.00 Indirect Bilirubin 0.2 Aspartate Amino 24 Transf (AST/SGOT) Alanine 47 Aminotransferase (AL T/SGPT) Alkaline Phosphatase 41 L Total Protein 6.1 Albumin 3.8 Globulin 2.30 Albumin/Globulin 1.65 Ratio Bedside Glucose 112 118 Test 06/11/18 12:45 06/11/18 15:03 06/11/18 17:36 06/11/18 19:46 White Blood Count 8.2 # Red Blood Count 4.93 Hemoglobin 13.7 L Hematocrit 43.0 Mean Corpuscular 87.2 Volume Mean Corpuscular 27.8 L Hemoglobin Mean Corpuscular 31.9 L Hemoglobin Concent Red Cell 12.8 Distribution Width Platelet Count 231 Mean Platelet Volume 10.3 Immature 0.900 H Granulocytes % Neutrophils % 67.9 Lymphocytes % 21.2 Monocytes % 8.8 Eosinophils % 0.7 Basophils % 0.5 Nucleated Red Blood 0.0 Cells % Immature 0.070 H Granulocytes # Neutrophils # 5.6 Lymphocytes # 1.7 Monocytes # 0.7 Eosinophils # 0.1 Basophils # 0.0 Nucleated Red Blood 0.0 Cells # Prothrombin Time 11.8 L Prothrombin Time 0.9 Ratio INR International 0.86 Normalized Ratio Activated 25.8 Partial Thromboplast Time Creatine Kinase 299 H Creatine Kinase 0.7 Index Creatinine Kinase MB 2.12 (Mass) Troponin I 0.111 Bedside Glucose 174 105 115 HPI/ROS Admit Date/Time Admit Date/Time Jun 10, 2018 at 18:46 Hx of Present Illness 47 y/o H M w/ h/o T2DM and hyperlipidemia in [facility] until 2 days ago when, after dinner, pt. developed acute onset chest pressure associated w/ nausea and vomiting and diaphoresis. Vomited and felt better. Went to bed. Next day was sitting, relaxing in his chair and had repeat episode but worse than before. Came to ER where EKG was found to be unremarkable. However, troponin value was elevated this am. Pt. 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 Has been evaluated by CT-S and will have CABG tomorrow. ROS Constitutional: no complaints, improved Eyes: no complaints ENT: no complaints Respiratory: shortness of breath Cardiovascular: chest pain, lightheadedness Gastrointestinal: nausea, vomiting Genitourinary: no complaints Musculoskeletal: no complaints Neurologic: no complaints PMH/Family/Social Past Medical History Medical History: diabetes, high cholesterol Medications Current Medications IV Flush (NS 3 ml) 3 ml PER PROTOCOL IV ; Start 06/10/18 at 19:00 Lorazepam (Ativan) 0.5 mg Q8H PRN PO .ANXIETY; Start 06/10/18 at 19:00 Ondansetron HCl (Zofran Tab) 4 mg Q6H PRN PO NAUSEA/VOMITING; Start 06/10/18 at 19:00 Aspirin (Aspirin) 81 mg DAILY PO Last administered on 06/11/18at 12:41; Admin Dose 81 MG; Start 06/10/18 at 19:00 Nitroglycerin (Nitroglycerin (Sl Tab) 0.4 Mg) 1 tab Q5M PRN SL .CHEST PAIN Last administered on 06/11/18at 14:06; Admin Dose 1 TAB; Start 06/10/18 at 19:00 Acetaminophen (Tylenol Tab) 650 mg Q6H PRN PO .PAIN 1-3 OR TEMP; Start 06/10/18 at 19:00 Acetaminophen/ Hydrocodone Bitart ([place] (5/325)) 1 tab Q6H PRN PO .PAIN 4-6; Start 06/10/18 at 19:00 Zolpidem Tartrate (Ambien) 5 mg QHS PRN PO .INSOMNIA; Start 06/10/18 at 19:00 Docusate Sodium (Colace) 100 mg Q12H PRN PO .CONSTIPATION; Start 06/10/18 at 19:00 Famotidine (Pepcid) 20 mg Q12 PO Last administered on 06/11/18 20:13; Admin Dose 20 MG; Start 06/10/18 at 21:00 Metoprolol Tartrate (Lopressor) 12.5 mg BID PO Last administered on 06/11/18 20:14; Admin Dose 12.5 MG; Start 06/10/18 at 21:00 Diagnostic Test (Pha) (Accu-Chek) 1 ea AC MEALS XX Last administered on 06/11/18at 11:20; Admin Dose 1 EA; Start 06/11/18 at 07:00 Diagnostic Test (Pha) (Accu-Chek) 1 ea 2 HOURS AFTER MEALS XX ; Start 06/10/18 at 20:00 Pioglitazone HCl (Actos) 30 mg QHS PO Last administered on 06/11/18at 20:13; Admin Dose 30 MG; Start 06/10/18 at 21:00 Empaglifozin (Jardiance) 10 mg DAILY@08 PO Last administered on 06/11/18at 13:03; Admin Dose 10 MG; Start 06/11/18 at 08:00 Fish Oil (Fish Oil) 2,000 mg BID PO Last administered on 06/11/18at 20:13; Admin Dose 2,000 MG; Start 06/10/18 at 21:00 Insulin Aspart (Novolog Insulin Pen) NOVOLOG *MODERATE* ALGORITHM WITH MEALS BEDTIME SC ; Start 06/10/18 at 21:00 Miscellaneous Information 1 ea NOTE XX ; Start 06/10/18 at 19:30 Glucose (Glutose) 15 gm Q15M PRN PO DECREASED GLUCOSE; Start 06/10/18 at 19:30 Glucose (Glutose) 22.5 gm Q15M PRN PO DECREASED GLUCOSE; Start 06/10/18 at 19:30 Dextrose (D50w Syringe) 25 ml Q15M PRN IV DECREASED GLUCOSE; Start 06/10/18 at 19:30 Dextrose (D50w Syringe) 50 ml Q15M PRN IV DECREASED GLUCOSE; Start 06/10/18 at 19:30 Glucagon (Glucagen) 1 mg Q15M PRN IM DECREASED GLUCOSE; Start 06/10/18 at 19:30 Glucose (Glutose) 15 gm Q15M PRN BUCCAL DECREASED GLUCOSE; Start 06/10/18 at 19:30 Fenofibrate (Tricor) 145 mg DAILY PO Last administered on 06/11/18at 12:43; Admin Dose 145 MG; Start 06/11/18 at 09:00 Isosorbide Mononitrate (Imdur) 30 mg DAILY PO Last administered on 06/11/18at 13:03; Admin Dose 30 MG; Start 06/11/18 at 10:30 Atorvastatin Calcium (Lipitor) 40 mg QHS PO Last administered on 06/11/18at 20:13; Admin Dose 40 MG; Start 06/11/18 at 21:00 Heparin Sodium (Porcine) (Heparin (1000 Units/ml)) 4,000 unit PER PROTOCOL PRN IV aPTT<47; Start 06/11/18 at 16:00 Heparin Sodium (Porcine) 250 ml @ 9.5 mls/hr PER PROTOCOL IV Last administered on 06/11/18at 16:28; Admin Dose 9.5 MLS/HR; Start 06/11/18 at 10:30 Insulin Human Regular 100 unit/ Sodium Chloride 100 ml @ 0 mls/hr Q0M ONCE IVPB ; Start 06/12/18 at 11:30; Stop 06/12/18 at 11:31 Norepinephrine 250 ml @ 0 mls/hr ONCE ONCE IV ; Start 06/12/18 at 11:30; Stop 06/12/18 at 11:31 Epinephrine 4 mg/ Dextrose 250 ml @ 0 mls/hr Q0M ONCE IV ; Start 06/12/18 at 11:30; Stop 06/12/18 at 11:31 Phenylephrine HCl 250 ml @ 0 mls/hr ONCE ONCE IV ; Start 06/12/18 at 11:30; Stop 06/12/18 at 11:31 Aspirin (Aspirin) 600 mg ONCE ONCE [place] ; Start 06/12/18 at 11:30; Stop 06/12/18 at 11:31 Heparin Sodium (Porcine) 74352 unit/Milrinone Lactate 10 mg/ Sodium Chloride 1,011 ml @ 0 mls/hr ONCE ONCE SC ; Start 06/12/18 at 11:30; Stop 06/12/18 at 11:31 Milrinone Lactate 2 mg/Sodium Chloride 52 ml @ 0 mls/hr ONCE ONCE IV ; Start 06/12/18 at 11:30; Stop 06/12/18 at 11:31 Coded Allergies: No Known Allergy (Unverified , 06/10/18) Past Surgical History Past Surgical Hx: no surgical history Family History Significant Family History: cancer (liver), diabetes, hypertension, other (liver disease and alcoholism) Social History b. 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 [employer] Alcohol Use: sober (since 2006) Smoking Status: Former smoker (since 2006) Drug Use: cocaine (quit 2006) Exam/Review of Systems Vital Signs Vitals VS - Last 72 Hours, by Label Date Temp Pulse Resp B/P (MAP) Pulse Ox O2 O2 Flow FiO2 Time Delivery Rate 06/11/18 89 20:00 06/11/18 71 16:15 06/11/18 98.5 76 20 133/82 94 16:01 (99) 06/11/18 98.4 73 20 126/82 96 12:23 (97) 06/11/18 84 12:22 06/11/18 78 20 140/90 100 Room Air 11:56 (107) 06/11/18 80 18 124/82 96 Room Air 11:26 (96) 06/11/18 98.2 82 12 120/75 97 Room Air 10:56 (90) 06/11/18 84 13 118/86 97 Room Air 10:51 (97) 06/11/18 86 17 114/77 97 Room Air 10:46 (89) 06/11/18 84 19 123/76 97 Room Air 10:41 (92) 06/11/18 86 12 119/81 96 Room Air 10:36 (94) 06/11/18 84 12 116/52 96 Room Air 10:31 (73) 06/11/18 86 16 113/74 96 Room Air 10:26 (87) 06/11/18 86 15 113/59 95 Room Air 10:21 (77) 06/11/18 82 12 114/75 96 Room Air 10:16 (88) 06/11/18 82 10 118/78 96 Room Air 10:11 (91) 06/11/18 80 10 114/79 97 Room Air 10:06 (91) 06/11/18 99.1 84 132/84 97 Room Air 10:00 (100) 06/11/18 81 08:45 06/11/18 98.3 81 20 117/71 95 07:37 (86) 06/11/18 97.9 75 18 97/52 (67) 98 04:02 06/11/18 77 04:00 06/11/18 97.9 82 18 132/76 99 00:46 (94) 06/11/18 88 00:00 06/10/18 98.6 91 18 134/74 95 Room Air 21:11 (94) 06/10/18 103 20:42 06/10/18 86 18 121/83 97 Room Air 20:17 (96) 06/10/18 86 16 143/86 96 Room Air 18:37 (105) 06/10/18 Nasal 2 17:30 Cannula 06/10/18 97.5 96 20 162/87 97 17:02 (112) Vital Signs Date Temp Pulse Resp B/P (MAP) Pulse Ox O2 O2 Flow FiO2 Time Delivery Rate 06/11/18 89 20:00 06/11/18 98.5 20 133/82 94 16:01 (99) 06/11/18 Room Air 11:56 06/10/18 2 17:30 Exam Constitutional: alert, oriented, well developed Psych: no complaints, nl mood/affect Eyes: nl conjunctiva, EOMI, nl lids, nl sclera, PERRL ENMT: nl external ears & nose, nl lips & teeth, mucosa pink and moist Neck: supple, non-tender; No bruits, No masses, No thyromegaly Respiratory: clear to auscultation, normal air movement Cardiovascular: regular rate and rhythm, nl pulses; No edema, No murmurs/extra sounds, No rub Gastrointestinal: soft, nl liver, spleen, non-tender, bowel sounds; No mass, No rebound or guarding Musculoskeletal: nl extremities to inspection Extremities: normal pulses; No cyanosis, No clubbing, No edema 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: 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 intact, nl mental status, nl speech, nl strength Additional Comments Bedside Glucose - 72 Hours Test 06/10/18 21:28 06/11/18 07:35 06/11/18 10:50 06/11/18 15:03 Bedside 115 112 118 174 Glucose mg/dL (70-220) mg/dL (70-220) mg/dL (70-220) mg/dL (70-220) Test 06/11/18 17:36 06/11/18 19:46 Bedside 105 115 Glucose mg/dL (70-220) mg/dL (70-220) MAR CORTEZ MD Jun 11, 2018 22:05
[2018-06-12] VITALS (41 sets, daily range): BP systolic 90–136; BP diastolic 47–72; PULSE 62–110; RESP 14–29; TEMP 96.6–99.8
[2018-06-12] MEDS: INSULIN ASPART [NOVOLOG] 3 ML PEN SC SCH (07:55)
[2018-06-12] MEDS: ACCU-CHEK XX SCH ×6 (08:03→23:46)
[2018-06-12] MEDS: FAMOTIDINE 20 MG TAB PO SCH (08:23)
[2018-06-12] MEDS: ISOSORBIDE MONONITRATE(SR)30 MG TAB PO SCH (08:23)
[2018-06-12] MEDS: FENOFIBRATE 145 MG TAB PO SCH (08:23)
[2018-06-12] MEDS: EMPAGLIFLOZIN 10 MG TABLET PO SCH (08:23)
[2018-06-12] MEDS: FISH OIL 1,000 MG CAP PO SCH (08:23)
[2018-06-12] MEDS: ASPIRIN 81 MG TAB PO SCH (08:23)
[2018-06-12] MEDS: METOPROLOL 25 MG TAB PO SCH (08:23)
[2018-06-12] MEDS ORDERED: MIDAZOLAM 5 ML ONE ×2 (10:06→10:10)
[2018-06-12] MEDS ORDERED: PROPOFOL 100 ML ONE (10:11)
[2018-06-12] MEDS ORDERED: HEPARIN 1000 UNITS/ML 10 ML INJ ONE ×3 (10:12→11:55)
[2018-06-12] MEDS ORDERED: ETOMIDATE 20 MG INJ ONE (10:28)
[2018-06-12] MEDS ORDERED: PROPOFOL 20 ML ONE (10:28)
[2018-06-12] MEDS ORDERED: AMINOCAPROIC ACID 5 GM INJ ONE (10:28)
[2018-06-12] MEDS ORDERED: LIDOCAINE 2% (SDV) 5 ML INJ ONE (10:29)
[2018-06-12] MEDS ORDERED: ROCURONIUM 50 MG INJ ONE (10:38)
[2018-06-12] MEDS ORDERED: SUCCINYLCHOLINE CHLORIDE 100 MG/5 ML SYG IV ONE (10:38)
[2018-06-12] MEDS ORDERED: PROTAMINE 250 MG INJ ONE (10:38)
[2018-06-12] MEDS ORDERED: PAPAVERINE 60 MG INJ ONE (11:06)
[2018-06-12] MEDS ORDERED: VANCOMYCIN 1 GM INJ ONE (11:06)
[2018-06-12] MEDS ORDERED: NORepinephrine 8MG/250 ML (PMX 250 ML IV ONE (11:30)
[2018-06-12] MEDS ORDERED: INSULIN HUMAN REGULAR 100 UNIT in SOD CHLORIDE 0.9% 99 ML IVPB ONE (11:30)
[2018-06-12] MEDS ORDERED: MILRINONE LACTATE 2 MG in SOD CHLORIDE 0.9% 50 ML IV ONE (11:30)
[2018-06-12] MEDS ORDERED: HEPARIN (10000 UNITS/ML) 10,000 UNIT, MILRINONE LACTATE 10 MG in SOD CHLORIDE 0.9% 1,00... SC ONE (11:30)
[2018-06-12] MEDS ORDERED: ASPIRIN 600 MG SUPP PR ONE (11:30)
[2018-06-12] MEDS ORDERED: EPINEPHrine 4 MG in DEXTROSE 5% 246 ML IV ONE (11:30)
[2018-06-12] MEDS ORDERED: PHENYLephrine 20MG IN 250 ML 250 ML IV ONE (11:30)
--- NOTE | 2018-06-12 11:49 | PREAC ---
Date/Time of Note Date/Time of Note DATE: 06/12/18 TIME: 11:48 Anesthesia Eval and Record Evaluation Time Pre-Procedure Interview DATE: 06/12/18 TIME: 11:48 Age 47 Sex male NPO: 8 hrs Preoperative diagnosis CAD ischemia Planned procedure CABGx3 Past Medical History Past Medical History: Includes Cardio: HTN, Dyslipidemia, VA, CAD, CHF Endo: Diabetes Pulm: Smoking Hx Neuro: Peripheral neuropathy Heme: Anemia Psych: Depression Surgery & Anesthesia Issues Significant blood loss Meds Anticoagulation: No Beta Keyshawn within 24 hr: No Reason Beta Keyshawn not given: Pt. not on B-Keyshawn Current Medications IV Flush (NS 3 ml) 3 ml PER PROTOCOL IV ; Start 06/10/18 at 19:00 Lorazepam (Ativan) 0.5 mg Q8H PRN PO .ANXIETY; Start 06/10/18 at 19:00 Ondansetron HCl (Zofran Tab) 4 mg Q6H PRN PO NAUSEA/VOMITING; Start 06/10/18 at 19:00 Aspirin (Aspirin) 81 mg DAILY PO Last administered on 06/12/18at 08:23; Admin Dose 81 MG; Start 06/10/18 at 19:00 Nitroglycerin (Nitroglycerin (Sl Tab) 0.4 Mg) 1 tab Q5M PRN SL .CHEST PAIN Last administered on 06/11/18at 14:06; Admin Dose 1 TAB; Start 06/10/18 at 19:00 Acetaminophen (Tylenol Tab) 650 mg Q6H PRN PO .PAIN 1-3 OR TEMP; Start 06/10/18 at 19:00 Acetaminophen/ Hydrocodone Bitart ([place] (5/325)) 1 tab Q6H PRN PO .PAIN 4-6; Start 06/10/18 at 19:00 Zolpidem Tartrate (Ambien) 5 mg QHS PRN PO .INSOMNIA; Start 06/10/18 at 19:00 Docusate Sodium (Colace) 100 mg Q12H PRN PO .CONSTIPATION; Start 06/10/18 at 19:00 Famotidine (Pepcid) 20 mg Q12 PO Last administered on 06/12/18at 08:23; Admin Dose 20 MG; Start 06/10/18 at 21:00 Metoprolol Tartrate (Lopressor) 12.5 mg BID PO Last administered on 06/12/18 08:23; Admin Dose 12.5 MG; Start 06/10/18 at 21:00 Diagnostic Test (Pha) (Accu-Chek) 1 ea AC MEALS XX Last administered on 06/12/18 08:03; Admin Dose 1 EA; Start 06/11/18 at 07:00 Diagnostic Test (Pha) (Accu-Chek) 1 ea 2 HOURS AFTER MEALS XX ; Start 06/10/18 at 20:00 Pioglitazone HCl (Actos) 30 mg QHS PO Last administered on 06/11/18at 20:13; Admin Dose 30 MG; Start 06/10/18 at 21:00 Empaglifozin (Jardiance) 10 mg DAILY@08 PO Last administered on 06/12/18 08:23; Admin Dose 10 MG; Start 06/11/18 at 08:00 Fish Oil (Fish Oil) 2,000 mg BID PO Last administered on 06/12/18 08:23; Admin Dose 2,000 MG; Start 06/10/18 at 21:00 Insulin Aspart (Novolog Insulin Pen) NOVOLOG *MODERATE* ALGORITHM WITH MEALS BEDTIME SC ; Start 06/10/18 at 21:00 Miscellaneous Information 1 ea NOTE XX ; Start 06/10/18 at 19:30 Glucose (Glutose) 15 gm Q15M PRN PO DECREASED GLUCOSE; Start 06/10/18 at 19:30 Glucose (Glutose) 22.5 gm Q15M PRN PO DECREASED GLUCOSE; Start 06/10/18 at 19 :30 Dextrose (D50w Syringe) 25 ml Q15M PRN IV DECREASED GLUCOSE; Start 06/10/18 at 19:30 Dextrose (D50w Syringe) 50 ml Q15M PRN IV DECREASED GLUCOSE; Start 06/10/18 at 19:30 Glucagon (Glucagen) 1 mg Q15M PRN IM DECREASED GLUCOSE; Start 06/10/18 at 19:30 Glucose (Glutose) 15 gm Q15M PRN BUCCAL DECREASED GLUCOSE; Start 06/10/18 at 19:30 Fenofibrate (Tricor) 145 mg DAILY PO Last administered on 06/12/18 08:23; Admin Dose 145 MG; Start 06/11/18 at 09:00 Isosorbide Mononitrate (Imdur) 30 mg DAILY PO Last administered on 4/30/19at 08:23; Admin Dose 30 MG; Start 06/11/18 at 10:30 Atorvastatin Calcium (Lipitor) 40 mg QHS PO Last administered on 06/11/18at 20:13; Admin Dose 40 MG; Start 06/11/18 at 21:00 Heparin Sodium (Porcine) (Heparin (1000 Units/ml)) 4,000 unit PER PROTOCOL PRN IV aPTT<47 Last administered on 06/12/18at 00:15; Admin Dose 4,000 UNIT; Start 06/11/18 at 16:00 Heparin Sodium (Porcine) 250 ml @ 9.5 mls/hr PER PROTOCOL IV Last administered on 06/11/18at 16:28; Admin Dose 9.5 MLS/HR; Start 06/11/18 at 10:30 Meds reviewed: Yes Allergies Coded Allergies: No Known Allergy (Unverified , 06/10/18) Allergies Reviewed: Yes Labs/Studies Labs Reviewed: Reviewed by anesthesiologist Result Diagram: 06/12/18 0725 06/12/18 0724 Laboratory Tests 06/12/18 07:24 06/12/18 07:25 Blood Bank Test 06/11/18 17:15 Antibody Screen NEGATIVE Blood Product Summary Counts Blood Type A POSITIVE Crossmatch Red Blood Cells test: N/A Studies: ECG, CXR, Stress test, 2D Echo Pre-procedure Exam Last vitals Vital Signs Date Temp Pulse Resp B/P (MAP) Pulse Ox O2 O2 Flow FiO2 Time Delivery Rate 06/12/18 99.2 62 20 115/72 96 Room Air 07:37 (86) 06/10/18 2 17:30 Airway: Adequate mouth opening, Adequate thyromental dist Mallampati: Mallampati III Teeth: Normal Lung: Normal Heart: Normal ASA Physical Status ASA physical status: 4 Emergency: None Planned Anesthetic General/MAC: ETT, NG/OG Tube, A Line, CVP, PCWP, IKER Planned Pain Management Parenteral pain med Pre-operative Attestations Prior to commencing anesthesia and surgery, the patient was re-evaluated, there was verification of: *The patient's identity *The results of appropriate recent lab work and preoperative vital signs *The above evaluation not changing prior to induction *Anesthetic plan, risk benefits, alternative and complications discussed with patient/family; questions answered; patient/family understands, accepts and wishes to proceed. SURAJ FLORES MD Jun 12, 2018 11:49
[2018-06-12] MEDS ORDERED: CA CHLORIDE 10% 10 ML SYRINGE ONE ×2 (11:55→15:51)
[2018-06-12] MEDS ORDERED: morphine 2 MG INJ IV PRN ×2 (12:00)
[2018-06-12] MEDS ORDERED: LABETALOL HCL 20MG INJ IV PRN (12:00)
[2018-06-12] MEDS ORDERED: FENTAnyl 50 MCG/ML VIAL IV PRN ×2 (12:00)
[2018-06-12] MEDS ORDERED: LEVALBUTEROL (NEB) 1.25 MG/0.5 ML AMP HHN PRN (12:00)
[2018-06-12] MEDS ORDERED: ONDANSETRON 4 MG INJ IV PRN (12:00)
[2018-06-12] MEDS ORDERED: MILRINONE LACTATE 1 MG/ML VIAL ONE (12:00)
[2018-06-12] MEDS ORDERED: LORAZEPAM 2 MG INJ IV PRN (12:00)
[2018-06-12] MEDS ORDERED: HYDROmorphONE 0.5 MG/0.5 ML SYG IV PRN ×5 (12:00→16:30)
[2018-06-12] MEDS ORDERED: INSULIN REGULAR, HUMAN 100 UNIT/1 ML 3ML VIAL ONE (12:00)
[2018-06-12] MEDS ORDERED: DIPHENHYDRAMINE 50 MG INJ IV PRN (12:00)
[2018-06-12] MEDS ORDERED: ALBUMIN HUMAN 25% 100 ML INJ ONE (12:00)
[2018-06-12] MEDS ORDERED: hydrALAzine 20 MG INJ IV PRN (12:00)
[2018-06-12] MEDS ORDERED: IPRATROPIUM (NEB) 0.5 MG/2.5 ML AMP HHN PRN (12:00)
[2018-06-12] MEDS ORDERED: MEPERIDINE 25 MG INJ IV PRN (12:00)
[2018-06-12] MEDS ORDERED: morphine 10 MG INJ IV PRN (12:00)
[2018-06-12] MEDS ORDERED: MIDAZOLAM 1 MG/ML 2 ML INJ IV PRN (12:00)
[2018-06-12] MEDS ORDERED: CEFAZOLIN 1 GM INJ ONE (12:58)
[2018-06-12] MEDS ORDERED: NITROGLYCERIN 50 MG/D5W (PMX) 250 ML ONE (13:13)
[2018-06-12] MEDS ORDERED: morphine 10 MG INJ ONE (13:21)
[2018-06-12] MEDS ORDERED: FUROSEMIDE 20 MG INJ ONE ×2 (15:05→15:23)
[2018-06-12] MEDS ORDERED: NA BICARBONATE 8.4% 50 ML SYG ONE (15:51)
--- NOTE | 2018-06-12 16:13 | SIPON ---
Date/Time of Note Date/Time of Note DATE: 06/12/18 TIME: 16:12 Operative Report Preoperative Diagnosis NSTEMI, 3V CAD Postoperative Diagnosis SAME Operation/Procedure Performed CABGX3, STERN TO LAD, SVG TO DISTAL PDA, SVG TO OM2 Surgeon see signature line early childhood teacher assistant FRANKY BRAUN MD Second assist: ROXANN WINTER Anesthesia: general Estimated blood loss: 250 - 300 ml's Transfusion Required none Specimen NONE Grafts/Implants none Complications none AG FUNG MD Jun 12, 2018 16:13
[2018-06-12] MEDS ORDERED: DEXTROSE 50% 50 ML SYRINGE ONE (16:29)
[2018-06-12] MEDS ORDERED: DEXTROSE 50% 50 ML SYRINGE IV PRN ×4 (16:30→20:30)
[2018-06-12] MEDS ORDERED: INSULIN HUMAN REGULAR 100 UNIT in SOD CHLORIDE 0.9% 99 ML IV SCH ×2 (16:30→20:30)
[2018-06-12] MEDS ORDERED: ACETAMINOPHEN 325 MG TAB PO PRN (16:30)
[2018-06-12] MEDS ORDERED: DOPamine-D5W 1.6 MG/ML 250 ML IV SCH (16:30)
[2018-06-12] MEDS ORDERED: MAGNESIUM SULFATE 1 GM/D5W 100 ML IVPB PRN (16:30)
[2018-06-12] MEDS ORDERED: ACCU-CHEK XX SCH (16:30)
[2018-06-12] MEDS ORDERED: NITROGLYCERIN 50 MG/D5W (PMX) 250 ML IV SCH (16:30)
[2018-06-12] MEDS ORDERED: morphine 2 MG INJ ONE (16:39)
--- NOTE | 2018-06-12 16:49 | PAC ---
Date/Time of Note Date/Time of Note DATE: 06/12/18 TIME: 16:49 Post-Anesthesia Notes Post-Anesthesia Note Last documented vital signs Vital Signs Date Temp Pulse Resp B/P (MAP) Pulse Ox O2 O2 Flow FiO2 Time Delivery Rate 06/12/18 84 12:00 06/12/18 99.2 20 115/72 96 Room Air 07:37 (86) 06/10/18 2 17:30 Activity: Other (sedated) Respiratory function: Other (intubated per plan) Cardiovascular function: WNL Mental status: Other (sedated) Pain reasonably controlled: Yes Hydration appropriate: Yes Nausea/Vomiting absent: Yes SURAJ FLORES MD Jun 12, 2018 16:49
[2018-06-12] MEDS ORDERED: morphine 2 MG INJ IV STA (16:54)
[2018-06-12] MEDS ORDERED: POTASSIUM CHLORIDE 100 ML ONE (17:01)
[2018-06-12] MEDS ORDERED: ALBUMIN HUMAN 5% 250 ML ONE (17:01)
--- NOTE | 2018-06-12 17:31 | CONS ---
Assessment/Plan Assessment/Plan Hospital Course (Demo Recall) NSTEMI: Cath with 3 vessel CAD in a diabetic. CAD s/p CABG: STERN-LAD, SVG-PDA, SVG-OM 06/12/2018. Acute respiratory failure: remains intubated post CABG DM HL -ASA -would add plavix eventually if no bleeding -lipitor 80mg -restart metoprolol if remains stable post-op Consultation Date/Type/Reason Admit Date/Time Jun 12, 2018 at 16:00 Initial Consult Date 06/11/18 Type of Consult Cardiology Requesting Provider: SRIKANTH HERNANDEZ MD Date/Time of Note DATE: 06/12/18 TIME: 17:24 24 HR Interval Summary Free Text/Dictation s/p three vessel CABG this afternoon. Was on milrinone transiently and now off. PA pressure normal. CVP reasonable Exam/Review of Systems Vital Signs Vitals Vital Signs Date Temp Pulse Resp B/P (MAP) Pulse Ox O2 O2 Flow FiO2 Time Delivery Rate 06/12/18 98.2 17:00 06/12/18 84 18 90 100 16:30 06/12/18 115/72 Room Air 07:37 (86) 06/10/18 2 17:30 Intake and Output 06/11/18 06/11/18 06/12/18 1515:00 23:00 07:00 IntakeIntake Total 750 ml 480 ml BalanceBalance 750 ml 480 ml Exam Constitutional: No alert ENMT: intubated Neck: supple; No jvd Respiratory: diminished breath sounds; No clear to auscultation Cardiovascular: regular rate and rhythm; No edema Gastrointestinal: soft; No distended Musculoskeletal: No nl extremities to inspection 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: No nl mental status, No nl speech Labs Result Diagram: 06/12/18 1635 06/12/18 1635 Results 24hrs Laboratory Tests Test 06/11/18 17:36 06/11/18 19:46 06/11/18 22:33 06/12/18 07:24 Bedside Glucose 105 115 Activated 25.8 Partial Thromboplast Time Sodium Level 143 Potassium Level 4.0 Chloride Level 106 Carbon Dioxide Level 27 Anion Gap 10 Blood Urea Nitrogen 17 Creatinine 1.02 Est Glomerular > 60 Filtrat Rate mL/min Glucose Level 138 Calcium Level 9.4 Test 06/12/18 07:25 06/12/18 08:01 06/12/18 16:26 06/12/18 16:35 White Blood Count 7.9 7.5 Red Blood Count 5.02 3.31 #L Hemoglobin 14.0 9.4 #L Hematocrit 43.2 28.6 #L Mean Corpuscular 86.1 86.4 Volume Mean Corpuscular 27.9 L 28.4 L Hemoglobin Mean Corpuscular 32.4 32.9 Hemoglobin Concent Red Cell 13.0 12.8 Distribution Width Platelet Count 209 131 #L Mean Platelet Volume 9.7 10.0 Immature 0.600 H 0.500 H Granulocytes % Neutrophils % 69.0 69.4 Lymphocytes % 18.4 19.5 Monocytes % 10.9 9.8 Eosinophils % 0.8 0.5 Basophils % 0.3 0.3 Nucleated Red Blood 0.0 0.0 Cells % Immature 0.050 H 0.040 H Granulocytes # Neutrophils # 5.5 5.2 Lymphocytes # 1.5 1.5 Monocytes # 0.9 0.7 Eosinophils # 0.1 0.0 Basophils # 0.0 0.0 Nucleated Red Blood 0.0 0.0 Cells # Activated 30.7 29.3 Partial Thromboplast Time Triglycerides Level 174 H Cholesterol Level 125 LDL Cholesterol, 53 Calculated HDL Cholesterol 37 Cholesterol/HDL 3.3 Ratio Bedside Glucose 126 75 Prothrombin Time Pending Prothrombin Time 1.2 Ratio INR International 1.20 Normalized Ratio Sodium Level 145 H Potassium Level 3.6 Chloride Level 110 Carbon Dioxide Level 26 Anion Gap 9 Blood Urea Nitrogen 15 Creatinine 1.02 Est Glomerular > 60 Filtrat Rate mL/min Glucose Level 213 Calcium Level 11.7 #H Magnesium Level 2.7 H Test 06/12/18 16:45 Bedside Glucose 178 Medications Medications Current Medications Potassium Chloride 40 meq/ Calcium Chloride 1 gm/Dextrose/ Sodium Chloride 1,030 ml @ 60 mls/hr [id number] IV ; Start 06/12/18 at 16:16; Status UNV Cefazolin Sodium 50 ml @ 100 mls/hr Q8H IVPB ; Start 06/12/18 at 16:30; Stop 06/13/18 at 08:59; Status UNV Hydromorphone HCl (Dilaudid) 0.2 mg Q15M PRN IV PAIN LEVEL 1-5; Start 06/12/18 at 16:30; Status UNV Hydromorphone HCl (Dilaudid) 0.4 mg Q15M PRN IV PAIN LEVEL 6-10; Start 06/12/18 at 16:30; Status UNV Oxycodone/ Acetaminophen (Percocet (5/ 325)) 1 tab Q3H PRN PO PAIN LEVEL 1-5; Start 06/12/18 at 16:30; Status UNV Oxycodone/ Acetaminophen (Percocet (5/ 325)) 2 tab Q3H PRN PO PAIN LEVEL 6-10; Start 06/12/18 at 16:30; Status UNV Ondansetron HCl (Zofran Inj) 4 mg Q6H PRN IV NAUSEA AND/OR VOMITING; Start 06/12/18 at 16:30; Status UNV Famotidine (Pepcid Iv) 20 mg BID@08,20 IV ; Start 06/12/18 at 20:00; Status UNV Famotidine (Pepcid) 20 mg BID PO ; Start 06/12/18 at 21:00; Status UNV Acetaminophen (Tylenol Tab) 650 mg Q3H PRN PO ELEVATED TEMPERATURE; Start 06/12/18 at 16:30; Status UNV Potassium Chloride 50 ml @ 50 mls/hr SEE DIRECTION PRN IVPB K+ LEVEL; Start 06/12/18 at 16:30; Status UNV Magnesium Sulfate/ Dextrose 100 ml @ 100 mls/hr PRN PRN IVPB PENDING LAB VALUE; Start 06/12/18 at 16:30; Status UNV Nitroglycerin/ Dextrose 250 ml @ 1.5 mls/hr PER PROTOCOL IV ; Start 06/12/18 at 16:30; Status UNV Dopamine HCl/ Dextrose 250 ml @ 5.97 mls/hr PER PROTOCOL IV ; Start 06/12/18 at 16:30; Status UNV Aspirin (Halfprin) 162 mg DAILY PO ; Start 06/13/18 at 09:00; Status UNV Enoxaparin Sodium (Lovenox) 40 mg DAILY SC ; Start 06/13/18 at 09:00; Status UNV Atorvastatin Calcium (Lipitor) 80 mg HS PO ; Start 06/12/18 at 21:00; Status UNV Morphine Sulfate (morphine) 2 mg ONCE STAT IV ; Start 06/12/18 at 16:54; Stop 06/12/18 at 16:55; Status UNV KOSHKARYAN,NOEL Jun 12, 2018 17:31
[2018-06-12] MEDS: POTASSIUM CHLORIDE 50 ML IVPB PRN ×3 (17:35→18:47)
[2018-06-12] MEDS ORDERED: ALBUMIN HUMAN 5% 250 ML IV PRN (18:30)
[2018-06-12] MEDS: PROPOFOL 100 ML IV SCH (18:46)
[2018-06-12] MEDS: POTASSIUM CHLORIDE 40 MEQ, CALCIUM CHLORIDE 10% 1 GM in DEXTROSE 5%-0.225% NACL 1,000 ML IV SCH (18:53)
--- NOTE | 2018-06-12 18:57 | PN ---
Date/Time of Note Date/Time of Note DATE: 06/12/18 TIME: 18:53 Assessment/Plan VTE Prophylaxis Risk score (from Ns)>0 risk: 3 SCD applied (from Ns): Yes Pharmacological prophylaxis: LMWH Lines/Catheters IV [facility]from [facility] Cord[facility] Urinary Cath still in place: Yes (FROM [facility].R.) Reason Cath still needed: other (indicate) (immediate post-op) Assessment/Plan Problems: (1) Presence of aortocoronary bypass graft Status: Acute Comment: Doing well post-3 vessel CABG. Sedated. RN monitoring. (2) 3-vessel CAD Status: Chronic Comment: Pt. now s/p CABG (3) NSTEMI (non-ST elevated myocardial infarction) Status: Acute Comment: Minimal apparent myocardial damage. Defer to cardiology to optimize post-op. (4) Postoperative anemia due to acute blood loss Status: Acute Comment: Hgb modestly decreased although not much blood loss noted intraoperatively. Will monitor H/H. (5) Type 2 diabetes mellitus with other specified complication Status: Chronic Comment: Accu-check q1 post-op. Resume po and GLP-1 meds in the near future. Qualifiers: Diabetes mellitus mcfp insulin use: without rn long term care use Qualified Codes: E11.69 - Type 2 diabetes mellitus with other specified complication (6) Mixed hyperlipidemia Status: Chronic Comment: Statin resumption post-op when taking po. Result Diagram: 06/12/18 1635 06/12/18 1635 Results 24hrs Laboratory Tests Test 06/11/18 19:46 06/11/18 22:33 06/12/18 07:24 06/12/18 07:25 Bedside Glucose 115 Activated 25.8 30.7 Partial Thromboplast Time Sodium Level 143 Potassium Level 4.0 Chloride Level 106 Carbon Dioxide Level 27 Anion Gap 10 Blood Urea Nitrogen 17 Creatinine 1.02 Est Glomerular > 60 Filtrat Rate mL/min Glucose Level 138 Calcium Level 9.4 White Blood Count 7.9 Red Blood Count 5.02 Hemoglobin 14.0 Hematocrit 43.2 Mean Corpuscular 86.1 Volume Mean Corpuscular 27.9 L Hemoglobin Mean Corpuscular 32.4 Hemoglobin Concent Red Cell 13.0 Distribution Width Platelet Count 209 Mean Platelet Volume 9.7 Immature 0.600 H Granulocytes % Neutrophils % 69.0 Lymphocytes % 18.4 Monocytes % 10.9 Eosinophils % 0.8 Basophils % 0.3 Nucleated Red Blood 0.0 Cells % Immature 0.050 H Granulocytes # Neutrophils # 5.5 Lymphocytes # 1.5 Monocytes # 0.9 Eosinophils # 0.1 Basophils # 0.0 Nucleated Red Blood 0.0 Cells # Triglycerides Level 174 H Cholesterol Level 125 LDL Cholesterol, 53 Calculated HDL Cholesterol 37 Cholesterol/HDL 3.3 Ratio Test 06/12/18 08:01 06/12/18 16:26 06/12/18 16:35 06/12/18 16:45 Bedside Glucose 126 75 178 White Blood Count 7.5 Red Blood Count 3.31 #L Hemoglobin 9.4 #L Hematocrit 28.6 #L Mean Corpuscular 86.4 Volume Mean Corpuscular 28.4 L Hemoglobin Mean Corpuscular 32.9 Hemoglobin Concent Red Cell 12.8 Distribution Width Platelet Count 131 #L Mean Platelet Volume 10.0 Immature 0.500 H Granulocytes % Neutrophils % 69.4 Lymphocytes % 19.5 Monocytes % 9.8 Eosinophils % 0.5 Basophils % 0.3 Nucleated Red Blood 0.0 Cells % Immature 0.040 H Granulocytes # Neutrophils # 5.2 Lymphocytes # 1.5 Monocytes # 0.7 Eosinophils # 0.0 Basophils # 0.0 Nucleated Red Blood 0.0 Cells # Prothrombin Time 15.3 #H Prothrombin Time 1.2 Ratio INR International 1.20 Normalized Ratio Activated 29.3 Partial Thromboplast Time Sodium Level 145 H Potassium Level 3.6 Chloride Level 110 Carbon Dioxide Level 26 Anion Gap 9 Blood Urea Nitrogen 15 Creatinine 1.02 Est Glomerular > 60 Filtrat Rate mL/min Glucose Level 213 Calcium Level 11.7 #H Magnesium Level 2.7 H Test 06/12/18 17:25 06/12/18 17:52 Bedside Glucose 132 136 Subjective 24 Hr Interval Summary Subjective hx not possible: pt non-verbal (intubated and sedated) Exam/Review of Systems Exam Vitals VS - Last 72 Hours, by Label Date Temp Pulse Resp B/P (MAP) Pulse Ox O2 O2 Flow FiO2 Time Delivery Rate 06/12/18 97.7 94 16 118/62 100 18:15 (80) 06/12/18 97.7 91 14 121/62 99 18:00 (81) 06/12/18 92 16 100 100 17:50 06/12/18 97.7 87 17 130/66 98 17:45 (87) 06/12/18 96.6 88 17 127/64 92 17:30 (85) 06/12/18 96.6 88 17 120/61 92 17:15 (80) 06/12/18 98.2 17:00 06/12/18 96.6 88 18 136/68 93 17:00 (90) 06/12/18 84 18 90 100 16:30 06/12/18 96.6 83 16:30 06/12/18 89 16:00 06/12/18 84 12:00 06/12/18 97 08:00 06/12/18 99.2 62 20 115/72 96 Room Air 07:37 (86) 06/12/18 98.4 83 18 104/60 92 04:45 (75) 06/12/18 78 04:00 06/12/18 97.5 83 18 102/55 93 00:31 (71) 06/12/18 81 00:00 06/11/18 98.7 20 89 117/77 94 20:16 (90) 06/11/18 89 20:00 06/11/18 71 16:15 06/11/18 98.5 76 20 133/82 94 16:01 (99) 06/11/18 98.4 73 20 126/82 96 12:23 (97) 06/11/18 84 12:22 06/11/18 78 20 140/90 100 Room Air 11:56 (107) 06/11/18 80 18 124/82 96 Room Air 11:26 (96) 06/11/18 98.2 82 12 120/75 97 Room Air 10:56 (90) 06/11/18 84 13 118/86 97 Room Air 10:51 (97) 06/11/18 86 17 114/77 97 Room Air 10:46 (89) 06/11/18 84 19 123/76 97 Room Air 10:41 (92) 06/11/18 86 12 119/81 96 Room Air 10:36 (94) 06/11/18 84 12 116/52 96 Room Air 10:31 (73) 06/11/18 86 16 113/74 96 Room Air 10:26 (87) 06/11/18 86 15 113/59 95 Room Air 10:21 (77) 06/11/18 82 12 114/75 96 Room Air 10:16 (88) 06/11/18 82 10 118/78 96 Room Air 10:11 (91) 06/11/18 80 10 114/79 97 Room Air 10:06 (91) 06/11/18 99.1 84 132/84 97 Room Air 10:00 (100) 06/11/18 81 08:45 06/11/18 98.3 81 20 117/71 95 07:37 (86) 06/11/18 97.9 75 18 97/52 (67) 98 04:02 06/11/18 77 04:00 06/11/18 97.9 82 18 132/76 99 00:46 (94) 06/11/18 88 00:00 06/10/18 98.6 91 18 134/74 95 Room Air 21:11 (94) 06/10/18 103 20:42 06/10/18 86 18 121/83 97 Room Air 20:17 (96) 06/10/18 86 16 143/86 96 Room Air 18:37 (105) 06/10/18 Nasal 2 17:30 Cannula 06/10/18 97.5 96 20 162/87 97 17:02 (112) Vital Signs Date Temp Pulse Resp B/P (MAP) Pulse Ox O2 O2 Flow FiO2 Time Delivery Rate 06/12/18 97.7 94 16 118/62 100 18:15 (80) 06/12/18 100 17:50 06/12/18 Room Air 07:37 06/10/18 2 17:30 Intake and Output 06/11/18 06/11/18 06/12/18 1515:00 23:00 07:00 IntakeIntake Total 750 ml 480 ml BalanceBalance 750 ml 480 ml Constitutional: well developed, non-verbal; No alert, No oriented Respiratory: clear to auscultation, normal air movement Cardiovascular: regular rate and rhythm, nl pulses; No edema, No murmurs/extra sounds, No rub Gastrointestinal: soft, nl liver, spleen, non-tender, bowel sounds; No mass, No rebound or guarding Musculoskeletal: nl extremities to inspection Extremities: normal pulses; No cyanosis, No clubbing, No edema 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: lethargic Additional Comments Bedside Glucose - 72 Hours Test 06/10/18 21:28 06/11/18 07:35 06/11/18 10:50 06/11/18 15:03 Bedside 115 112 118 174 Glucose mg/dL (70-220) mg/dL (70-220) mg/dL (70-220) mg/dL (70-220) Test 06/11/18 17:36 06/11/18 19:46 06/12/18 08:01 06/12/18 16:26 Bedside 105 115 126 75 Glucose mg/dL (70-220) mg/dL (70-220) mg/dL (70-220) mg/dL (70-220) Test 06/12/18 16:45 06/12/18 17:25 06/12/18 17:52 Bedside 178 132 136 Glucose mg/dL (70-220) mg/dL (70-220) mg/dL (70-220) Results Results 24hrs Laboratory Tests Test 06/11/18 19:46 06/11/18 22:33 06/12/18 07:24 06/12/18 07:25 Bedside Glucose 115 Activated 25.8 30.7 Partial Thromboplast Time Sodium Level 143 Potassium Level 4.0 Chloride Level 106 Carbon Dioxide Level 27 Anion Gap 10 Blood Urea Nitrogen 17 Creatinine 1.02 Est Glomerular > 60 Filtrat Rate mL/min Glucose Level 138 Calcium Level 9.4 White Blood Count 7.9 Red Blood Count 5.02 Hemoglobin 14.0 Hematocrit 43.2 Mean Corpuscular 86.1 Volume Mean Corpuscular 27.9 L Hemoglobin Mean Corpuscular 32.4 Hemoglobin Concent Red Cell 13.0 Distribution Width Platelet Count 209 Mean Platelet Volume 9.7 Immature 0.600 H Granulocytes % Neutrophils % 69.0 Lymphocytes % 18.4 Monocytes % 10.9 Eosinophils % 0.8 Basophils % 0.3 Nucleated Red Blood 0.0 Cells % Immature 0.050 H Granulocytes # Neutrophils # 5.5 Lymphocytes # 1.5 Monocytes # 0.9 Eosinophils # 0.1 Basophils # 0.0 Nucleated Red Blood 0.0 Cells # Triglycerides Level 174 H Cholesterol Level 125 LDL Cholesterol, 53 Calculated HDL Cholesterol 37 Cholesterol/HDL 3.3 Ratio Test 06/12/18 08:01 06/12/18 16:26 06/12/18 16:35 06/12/18 16:45 Bedside Glucose 126 75 178 White Blood Count 7.5 Red Blood Count 3.31 #L Hemoglobin 9.4 #L Hematocrit 28.6 #L Mean Corpuscular 86.4 Volume Mean Corpuscular 28.4 L Hemoglobin Mean Corpuscular 32.9 Hemoglobin Concent Red Cell 12.8 Distribution Width Platelet Count 131 #L Mean Platelet Volume 10.0 Immature 0.500 H Granulocytes % Neutrophils % 69.4 Lymphocytes % 19.5 Monocytes % 9.8 Eosinophils % 0.5 Basophils % 0.3 Nucleated Red Blood 0.0 Cells % Immature 0.040 H Granulocytes # Neutrophils # 5.2 Lymphocytes # 1.5 Monocytes # 0.7 Eosinophils # 0.0 Basophils # 0.0 Nucleated Red Blood 0.0 Cells # Prothrombin Time 15.3 #H Prothrombin Time 1.2 Ratio INR International 1.20 Normalized Ratio Activated 29.3 Partial Thromboplast Time Sodium Level 145 H Potassium Level 3.6 Chloride Level 110 Carbon Dioxide Level 26 Anion Gap 9 Blood Urea Nitrogen 15 Creatinine 1.02 Est Glomerular > 60 Filtrat Rate mL/min Glucose Level 213 Calcium Level 11.7 #H Magnesium Level 2.7 H Test 06/12/18 17:25 06/12/18 17:52 Bedside Glucose 132 136 Medications Medication Current Medications Potassium Chloride 40 meq/ Calcium Chloride 1 gm/Dextrose/ Sodium Chloride 1,030 ml @ 60 mls/hr [id number] IV ; Start 06/12/18 at 18:30 Cefazolin Sodium 50 ml @ 100 mls/hr Q8H IVPB ; Start 06/12/18 at 21:00; Stop 06/13/18 at 13:29 Hydromorphone HCl (Dilaudid) 0.2 mg Q15M PRN IV PAIN LEVEL 1-5; Start 06/12/18 at 16:30 Hydromorphone HCl (Dilaudid) 0.4 mg Q15M PRN IV PAIN LEVEL 6-10; Start 06/12/18 at 16:30 Oxycodone/ Acetaminophen (Percocet (5/ 325)) 1 tab Q3H PRN PO PAIN LEVEL 1-5; Start 06/12/18 at 16:30 Oxycodone/ Acetaminophen (Percocet (5/ 325)) 2 tab Q3H PRN PO PAIN LEVEL 6-10; Start 06/12/18 at 16:30 Ondansetron HCl (Zofran Inj) 4 mg Q6H PRN IV NAUSEA AND/OR VOMITING; Start 06/12/18 at 16:30 Famotidine (Pepcid Iv) 20 mg BID@08,20 IV ; Start 06/12/18 at 20:00 Famotidine (Pepcid) 20 mg BID PO ; Start 06/12/18 at 21:00; Status Future Hold Acetaminophen (Tylenol Tab) 650 mg Q3H PRN PO ELEVATED TEMPERATURE; Start 06/12/18 at 16:30 Potassium Chloride 50 ml @ 50 mls/hr SEE DIRECTION PRN IVPB K+ LEVEL Last administered on 06/12/18at 18:47; Admin Dose 50 MLS/HR; Start 06/12/18 at 16:30 Magnesium Sulfate/ Dextrose 100 ml @ 100 mls/hr PRN PRN IVPB PENDING LAB VALUE; Start 06/12/18 at 16:30 Nitroglycerin/ Dextrose 250 ml @ 1.5 mls/hr PER PROTOCOL IV Last administered on 06/12/18at 18:07; Admin Dose 15 MLS/HR; Start 06/12/18 at 16:30 Dopamine HCl/ Dextrose 250 ml @ 5.97 mls/hr PER PROTOCOL IV ; Start 06/12/18 at 16:30 Aspirin (Halfprin) 162 mg DAILY PO ; Start 06/13/18 at 09:00 Enoxaparin Sodium (Lovenox) 40 mg DAILY SC ; Start 06/13/18 at 09:00 Atorvastatin Calcium (Lipitor) 80 mg HS PO ; Start 06/12/18 at 21:00 Albumin Human 250 ml @ 500 mls/hr PRN PRN IV CVP< 8, OR SBP<90; Start 06/12/18 at 18:30 Propofol 100 ml @ 2.388 mls/ hr Q12H IV Last administered on 06/12/18at 18:46; Admin Dose 14.328 MLS/HR; Start 06/12/18 at 18:30 MAR CORTEZ MD Jun 12, 2018 18:57
--- NOTE | 2018-06-12 19:32 | OPR ---
DATE OF OPERATION: 06/12/2018 PREOPERATIVE DIAGNOSES: Three-vessel coronary artery disease, non-ST elevation myocardial infarction . POSTOPERATIVE DIAGNOSES: Three-vessel coronary artery disease, non-ST elevation myocardial infarctio n. PROCEDURE PERFORMED: CABG x3, STERN to LAD, SVG to distal PDA, SVG to obtuse marginal artery, endosco pic vein harvesting, epiaortic scanning of the ascending aorta. SURGEON: Ag Fung M.D. GRAIN II FARMWORKER: Memo Chacon M.D. SECOND ACCOUNTS ADJUSTABLE CLERK: GELY Santos ANESTHESIOLOGIST: Dr. Jesus. ANESTHESIA: General endotracheal. COMPLICATIONS: None. FINDINGS: LV function was good pre and post-revascularization. Cardiopulmonary bypass time was 64 m inutes. Crossclamp time was 42 minutes. His obtuse marginal artery was a 1.75 mm vessel and the rebekah w in this was 17 mL per minute. The PDA was a 2 mm vessel and the flow in this was 46 mL per minute. The LAD was a 1.75 mm vessel and the flow in the STERN to LAD was 20 mL per minute. INDICATION: The patient is a 47-year-old male who was admitted with chest pain, ruled in for non-AMRIT WA, underwent angiogram which showed severe 3-vessel coronary artery disease. He was referred for CA BG. Risks, benefits and alternatives were explained to the patient who understood and consented. DESCRIPTION OF PROCEDURE: The patient was brought to the operating room, was placed in supine positi on. He was induced and underwent general endotracheal intubation without complications. Lines were placed. Antibiotics were given. He was prepped and draped in usual sterile fashion. Median sternot taina was made simultaneous endoscopic vein harvesting of the saphenous vein from the right lower extre mity. Heparin was given. STERN was taken down using clips and cautery. Pericardial wall was establi shed. The ascending aorta was scanned. There were no atheromas or plaques. Pursestring was placed in the ascending aorta followed by the right atrium. The ascending aorta was cannulated followed by 2-stage venous cannula in the right atrium. We then placed an ascending aortic vent. Once all our l clara were in place, we commenced cardiopulmonary bypass. Once we commenced bypass we placed a crossc lamp and arrested the heart using antegrade cardioplegia and topical ice. Once the heart was arreste d, we identified the obtuse marginal artery. We found the second OM made arteriotomy, extended with Henriquez scissors, anastomosed the vein graft using 7-0 Prolene in running fashion in end-to-side manner . The vein grafts cut to length. We then identified the distal PDA. We made an arteriotomy. We pr godwin it. 1.5 mm probe would not go more proximal where the lesion was identified. We then anastomos ed the vein graft using 7-0 Prolene in running fashion in end-to-side manner. Next, we found the LAD . We made an arteriotomy, extended with Henriquez scissors, anastomosed STERN using 7-0 Prolene in runnin g fashion in end-to-side manner. At this time, we rewarmed the patient, gave warm blood, and then re moved the crossclamp. We placed a partial clamp, made 2 aortotomies, anastomosed the vein graft usin g 7-0 Prolene in a running fashion in end-to-side manner. Partial clamp was removed. Vein grafts we re deaired. Distal hemostasis was achieved. Once this was completed, we began ventilating the patie nt and then weaned him off cardiopulmonary bypass. Once he was off bypass, we gave protamine. We de -lined the patient. We placed a left pleural tube and anterior mediastinal tube. We placed a ventri cular pacing wire. Once this was complete, we gave protamine. We de-lined the patient and then plac ed respective chest tubes and then closed the chest using interrupted cables followed by closure of t he fascia using 0 Vicryl and the skin using 4-0 Monocryl in subcuticular fashion. Lower extremity in cisions were closed using 3-0 Vicryl for the deep layer and 4-0 Monocryl for the skin. Dressings wer e applied. The patient was taken to the ICU in critical stable condition. Dictated By: AG GIBSON/KIRSTEN Conf#: [id number] DID#: [id number] CC: SRIKANTH HERNANDEZ MD; NOEL TEIXEIRA MD; AG FUNG MD;*EndCC*
[2018-06-12] MEDS: FAMOTIDINE 20 MG INJ IV SCH (20:00)
[2018-06-12] MEDS ORDERED: FAMOTIDINE 20 MG TAB PO SCH (21:00)
[2018-06-12] MEDS: ATORVASTATIN 80 MG TAB PO SCH (21:00)
[2018-06-12] MEDS: CEFAZOLIN 1 GM/50 ML (PMX) 50 ML IVPB SCH (21:01)
[2018-06-13] VITALS (55 sets, daily range): BP systolic 94–141; BP diastolic 62–88; PULSE 89–122; RESP 14–35; TEMP 98.6–100.6
[2018-06-13] MEDS: ACCU-CHEK XX SCH ×23 (00:59→23:31)
[2018-06-13] MEDS: ONDANSETRON 4 MG INJ IV PRN (01:03)
[2018-06-13] MEDS: CEFAZOLIN 1 GM/50 ML (PMX) 50 ML IVPB SCH ×2 (04:49→12:15)
[2018-06-13] MEDS: PROPOFOL 100 ML IV SCH (06:30)
--- NOTE | 2018-06-13 08:05 | CONS ---
Assessment/Plan Assessment/Plan Hospital Course (Demo Recall) Fevers likely due to pericarditis: mild fevers and significant pericardial rub on exam consistent with pericarditis. NSTEMI: Cath with 3 vessel CAD in a diabetic. s/p CABG CAD s/p CABG: STERN-LAD, SVG-PDA, SVG-OM 06/12/2018. Acute respiratory failure: extubated 06/12 DM HL -start ibuprofen 600mg TID -already on pepcid for GI prophylaxis -lasix 20mg IV x 1 for elevated filling pressures -f/u CXR -ASA 325mg -would add plavix eventually if no bleeding and once off NSAIDs -lipitor 80mg -restart metoprolol 25mg BID Consultation Date/Type/Reason Admit Date/Time Jun 12, 2018 at 16:00 Initial Consult Date 06/11/18 Type of Consult Cardiology Requesting Provider: SRIKANTH HERNANDEZ MD Date/Time of Note DATE: 06/13/18 TIME: 08:02 24 HR Interval Summary Free Text/Dictation Extubated. Has mild chest pain but overall feeling well. Temps to 100.6 overnight and in am. Started on antibiotics PA diastolic 20, CVP 12 Exam/Review of Systems Vital Signs Vitals Vital Signs Date Temp Pulse Resp B/P (MAP) Pulse Ox O2 O2 Flow FiO2 Time Delivery Rate 06/13/18 106 17 120/70 95 06:45 (87) 06/13/18 100.6 06:00 06/13/18 6.0 00:35 06/12/18 30 23:25 06/12/18 Room Air 07:37 Intake and Output 06/12/18 06/12/18 06/13/18 1515:00 23:00 07:00 IntakeIntake Total 3218.044 ml 19.5 ml OutputOutput Total 3010 ml 940 ml BalanceBalance 208.044 ml -920.5 ml Exam Constitutional: alert, oriented Psych: no complaints, nl mood/affect Head: normocephalic, atraumatic Neck: jvd (9cm) Respiratory: diminished breath sounds; No clear to auscultation Cardiovascular: regular rate and rhythm, rub; No edema Gastrointestinal: soft, non-tender; No distended 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: nl mental status, nl speech Labs Result Diagram: 06/13/18 0330 06/13/18 0330 Results 24hrs Laboratory Tests Test 06/12/18 16:26 06/12/18 16:35 06/12/18 16:45 06/12/18 17:25 Bedside Glucose 75 178 132 White Blood 7.5 Count Red Blood Count 3.31 #L Hemoglobin 9.4 #L Hematocrit 28.6 #L Mean 86.4 Corpuscular Volume Mean 28.4 L Corpuscular Hemoglobin Mean 32.9 Corpuscular Hemoglobin Conc ent Red Cell 12.8 Distribution Width Platelet Count 131 #L Mean Platelet 10.0 Volume Immature 0.500 H Granulocytes % Neutrophils % 69.4 Lymphocytes % 19.5 Monocytes % 9.8 Eosinophils % 0.5 Basophils % 0.3 Nucleated Red 0.0 Blood Cells % Immature 0.040 H Granulocytes # Neutrophils # 5.2 Lymphocytes # 1.5 Monocytes # 0.7 Eosinophils # 0.0 Basophils # 0.0 Nucleated Red 0.0 Blood Cells # Prothrombin 15.3 #H Time Prothrombin 1.2 Time Ratio INR 1.20 International Normalized Rati o Activated 29.3 Partial Thrombo plast Time Sodium Level 145 H Potassium Level 3.6 Chloride Level 110 Carbon Dioxide 26 Level Anion Gap 9 Blood Urea 15 Nitrogen Creatinine 1.02 Est Glomerular > 60 Filtrat Rate mL/min Glucose Level 213 Calcium Level 11.7 #H Magnesium Level 2.7 H Test 06/12/18 17:52 06/12/18 18:47 06/12/18 20:03 06/12/18 20:47 Bedside Glucose 136 146 171 White Blood 13.8 #H Count Red Blood Count 3.85 L Hemoglobin 10.6 L Hematocrit 33.7 L Mean 87.5 Corpuscular Volume Mean 27.5 L Corpuscular Hemoglobin Mean 31.5 L Corpuscular Hemoglobin Conc ent Red Cell 13.1 Distribution Width Platelet Count 189 # Mean Platelet 10.2 Volume Immature 0.600 H Granulocytes % Neutrophils % 74.9 Lymphocytes % 12.6 L Monocytes % 11.7 H Eosinophils % 0.1 Basophils % 0.1 Nucleated Red 0.0 Blood Cells % Immature 0.080 H Granulocytes # Neutrophils # 10.3 H Lymphocytes # 1.7 Monocytes # 1.6 H Eosinophils # 0.0 Basophils # 0.0 Nucleated Red 0.0 Blood Cells # Sodium Level 145 H Potassium Level 4.6 Chloride Level 109 Carbon Dioxide 23 Level Anion Gap 13 Blood Urea 17 Nitrogen Creatinine 1.28 H Est Glomerular 60 Filtrat Rate mL/min Glucose Level 219 Calcium Level 10.9 H Phosphorus 6.9 H Level Magnesium Level 2.5 Test 06/12/18 20:53 06/12/18 21:43 06/12/18 22:00 06/12/18 22:46 Bedside Glucose 182 185 177 Blood Gas Blood Specimen arterial Source Arterial Blood 06/12/2018 5:35 Date Drawn :42 PM Arterial Blood 7.450 pH (Temp corrected ) Arterial Blood 39.6 pCO2 (Temp correct) Arterial Blood 67.9 L pO2 (Temp corrected ) Arterial Blood 26.9 H HCO3 Arterial Blood 2.8 Base Excess Arterial Blood 93.4 L Oxygen Saturati on Huy Test N/A Arterial Blood A-Line Gas Puncture Site Arterial 0.3 Blood Carboxyhe moglobin Arterial Blood 0.2 Methemoglobin Blood Gas A-a 605.5 H O2 Differential Oxyhemoglobin 92.9 L Percent Blood Gas 37.0 Temperature Blood Gas 14.0 Respiration Rate Blood Gas 15 Actual Respiration Rat e Blood Gas VENT - AC Modality FiO2 100.0 Blood Gas Tidal 550.0 Volume Blood Gas Low 5.0 PEEP Setting Blood Gas RDIX Notified Whom Blood Gas 06/12/2018 5:56 Notified Time :42 PM Test 06/12/18 22:48 06/12/18 23:45 06/13/18 00:00 06/13/18 00:49 Blood Gas Blood arterial Blood Specimen arterial Source Arterial Blood 06/12/2018 10:42 06/13/2018 12:05 Date Drawn :49 PM :52 AM Arterial Blood 7.383 7.407 pH (Temp corrected ) Arterial Blood 45.7 H 44.5 pCO2 (Temp correct) Arterial Blood 107.9 H 66.5 L pO2 (Temp corrected ) Arterial Blood 26.6 H 27.4 H HCO3 Arterial Blood 1.1 2.3 Base Excess Arterial Blood 97.2 91.8 L Oxygen Saturati on Huy Test N/A N/A Arterial Blood A-Line A-Line Gas Puncture Site Arterial 0.3 0.3 Blood Carboxyhe moglobin Arterial Blood 0.4 0.4 Methemoglobin Blood Gas A-a 269.6 H 95.1 H O2 Differential Oxyhemoglobin 96.5 91.2 L Percent Blood Gas 37.0 37.0 Temperature Blood Gas 14.0 Respiration Rate Blood Gas 14 21 Actual Respiration Rat e Blood Gas VENT - AC VENT - CPAP Modality FiO2 60.0 30.0 Blood Gas Tidal 550.0 443.0 Volume Blood Gas Low 5.0 5.0 PEEP Setting Blood Gas Misael Notified Whom A MANAGER WHOLESALE Blood Gas 06/12/2018 10:54 06/13/2018 12:16 Notified Time :30 PM :33 AM Bedside Glucose 147 144 Blood Gas 8 Pressure Support Test 06/13/18 02:05 06/13/18 02:46 06/13/18 03:30 06/13/18 04:12 Bedside Glucose 140 130 129 White Blood 11.9 H Count Red Blood Count 3.98 L Hemoglobin 11.2 L Hematocrit 35.1 L Mean 88.2 Corpuscular Volume Mean 28.1 L Corpuscular Hemoglobin Mean 31.9 L Corpuscular Hemoglobin Conc ent Red Cell 13.2 Distribution Width Platelet Count 184 Mean Platelet 10.9 H Volume Immature 0.500 H Granulocytes % Neutrophils % 82.5 H Lymphocytes % 4.8 L Monocytes % 12.0 H Eosinophils % 0.0 Basophils % 0.2 Nucleated Red 0.0 Blood Cells % Immature 0.060 H Granulocytes # Neutrophils # 9.8 H Lymphocytes # 0.6 L Monocytes # 1.4 H Eosinophils # 0.0 Basophils # 0.0 Nucleated Red 0.0 Blood Cells # Prothrombin 13.6 Time Prothrombin 1.1 Time Ratio INR 1.03 International Normalized Rati o Activated 27.0 Partial Thrombo plast Time Sodium Level 148 H Potassium Level 4.7 Chloride Level 110 Carbon Dioxide 28 Level Anion Gap 10 Blood Urea 15 Nitrogen Creatinine 1.13 Est Glomerular > 60 Filtrat Rate mL/min Glucose Level 122 # Calcium Level 10.6 H Magnesium Level 2.3 Test 06/13/18 04:44 06/13/18 05:00 06/13/18 05:57 06/13/18 06:48 Bedside Glucose 124 105 119 Blood Gas Blood arterial Specimen Source Arterial Blood 06/13/2018 5:26:0 Date Drawn 0 AM Arterial Blood 7.397 pH (Temp corrected ) Arterial Blood 41.0 pCO2 (Temp correct) Arterial Blood 64.8 L pO2 (Temp corrected ) Arterial Blood 24.7 HCO3 Arterial Blood -0.2 Base Excess Arterial Blood 92.3 L Oxygen Saturati on Huy Test N/A Arterial Blood A-Line Gas Puncture Site Arterial 0.3 Blood Carboxyhe moglobin Arterial Blood 0.3 Methemoglobin Blood Gas A-a 86.5 H O2 Differential Oxyhemoglobin 91.7 L Percent Blood Gas 37.0 Temperature Blood Gas NASAL CANNULA Modality FiO2 28.0 Blood Gas Notified Whom Blood Gas 06/13/2018 5:37:0 Notified Time 0 AM Test 06/13/18 07:40 Bedside Glucose 127 Medications Medications Current Medications Potassium Chloride 40 meq/ Calcium Chloride 1 gm/Dextrose/ Sodium Chloride 1,030 ml @ 60 mls/hr [id number] IV Last administered on 06/12/18at 18:53; Admin Dose 60 MLS/HR; Start 06/12/18 at 18:30 Cefazolin Sodium 50 ml @ 100 mls/hr Q8H IVPB Last administered on 06/13/18at 04:49; Admin Dose 100 MLS/HR; Start 06/12/18 at 21:00; Stop 06/13/18 at 13:29 Hydromorphone HCl (Dilaudid) 0.2 mg Q15M PRN IV PAIN LEVEL 1-5; Start 06/12/18 at 16:30 Hydromorphone HCl (Dilaudid) 0.4 mg Q15M PRN IV PAIN LEVEL 6-10; Start 06/12/18 at 16:30 Oxycodone/ Acetaminophen (Percocet (5/ 325)) 1 tab Q3H PRN PO PAIN LEVEL 1-5; Start 06/12/18 at 16:30 Oxycodone/ Acetaminophen (Percocet (5/ 325)) 2 tab Q3H PRN PO PAIN LEVEL 6-10; Start 06/12/18 at 16:30 Ondansetron HCl (Zofran Inj) 4 mg Q6H PRN IV NAUSEA AND/OR VOMITING Last administered on 06/13/18at 01:03; Admin Dose 4 MG; Start 06/12/18 at 16:30 Famotidine (Pepcid Iv) 20 mg BID@08,20 IV ; Start 06/12/18 at 20:00 Famotidine (Pepcid) 20 mg BID PO ; Start 06/12/18 at 21:00; Status Hold Acetaminophen (Tylenol Tab) 650 mg Q3H PRN PO ELEVATED TEMPERATURE; Start 06/12/18 at 16:30 Potassium Chloride 50 ml @ 50 mls/hr SEE DIRECTION PRN IVPB K+ LEVEL Last administered on 06/12/18at 18:47; Admin Dose 50 MLS/HR; Start 06/12/18 at 16:30 Magnesium Sulfate/ Dextrose 100 ml @ 100 mls/hr PRN PRN IVPB PENDING LAB VALUE; Start 06/12/18 at 16:30 Nitroglycerin/ Dextrose 250 ml @ 1.5 mls/hr PER PROTOCOL IV Last administered on 06/12/18at 18:07; Admin Dose 15 MLS/HR; Start 06/12/18 at 16:30 Dopamine HCl/ Dextrose 250 ml @ 5.97 mls/hr PER PROTOCOL IV ; Start 06/12/18 at 16:30 Enoxaparin Sodium (Lovenox) 40 mg DAILY SC ; Start 06/13/18 at 09:00 Atorvastatin Calcium (Lipitor) 80 mg HS PO ; Start 06/12/18 at 21:00 Albumin Human 250 ml @ 500 mls/hr PRN PRN IV CVP< 8, OR SBP<90; Start 06/12/18 at 18:30 Propofol 100 ml @ 2.388 mls/ hr Q12H IV Last administered on 06/12/18at 18:46; Admin Dose 14.328 MLS/HR; Start 06/12/18 at 18:30 Diagnostic Test (Pha) (Accu-Chek) 1 ea Q1H XX Last administered on 06/13/18at 05:58; Admin Dose 1 EA; Start 06/12/18 at 21:00 Insulin Human Regular 100 unit/ Sodium Chloride 100 ml @ 0 mls/hr PER PROTOCOL IV Last administered on 06/12/18at 20:32; Admin Dose 2 MLS/HR; Start 06/12/18 at 20:30 Miscellaneous Information (* Miscellaneous Pharmacy Order) Treatment of Hypoglycemia: 1.BG 51... Per protocol XX ; Start 06/12/18 at 20:30 Dextrose (D50w Syringe) 25 ml Q15M PRN IV .DECREASED GLUCOSE; Start 06/12/18 at 20:30 Dextrose (D50w Syringe) 50 ml Q15M PRN IV .DECREASED GLUCOSE; Start 06/12/18 at 20:30 Aspirin (Ecotrin) 325 mg DAILY PO ; Start 06/13/18 at 09:00 Metoprolol Tartrate (Lopressor) 25 mg BID PO ; Start 06/13/18 at 09:00 NOEL TEIXEIRA June 13, 2018 08:05
[2018-06-13] MEDS: FAMOTIDINE 20 MG INJ IV SCH ×2 (08:24→20:38)
[2018-06-13] MEDS: FUROSEMIDE 20 MG INJ IV ONE ×2 (08:28→10:54)
[2018-06-13] MEDS: ENOXAPARIN 40 MG/0.4 ML SYG SC SCH (08:29)
[2018-06-13] MEDS: OXYCODONE/ACETAMINOPHEN (5/325) TAB PO PRN (08:32)
[2018-06-13] MEDS ORDERED: FUROSEMIDE 20 MG INJ IM ONE (09:00)
[2018-06-13] MEDS ORDERED: ASPIRIN (EC) 325 MG TAB PO SCH (09:00)
[2018-06-13] MEDS ORDERED: ASPIRIN (EC) 81 MG TAB PO SCH (09:00)
[2018-06-13] MEDS: METOPROLOL 25 MG TAB PO SCH ×2 (09:06→20:39)
[2018-06-13] MEDS: IBUPROFEN 600 MG TAB PO SCH ×3 (09:15→20:39)
[2018-06-13] MEDS ORDERED: FUROSEMIDE 20 MG INJ IV ONE (11:00)
[2018-06-13] MEDS: POTASSIUM CHLORIDE 40 MEQ, CALCIUM CHLORIDE 10% 1 GM in DEXTROSE 5%-0.225% NACL 1,000 ML IV SCH (11:40)
--- NOTE | 2018-06-13 15:21 | PN ---
Date/Time of Note Date/Time of Note DATE: 06/13/18 TIME: 15:21 Assessment/Plan Lines/Catheters IV Catheter Type (from Nrs): Cordis Donahue in Place (from Nrs): No Assessment/Plan Assessment/Plan Doing well sitting in chair. HD stable. labs and cxr ok. d/c serena, central line and donahue Exam/Review of Systems Vital Signs Vitals Vital Signs Date Temp Pulse Resp B/P (MAP) Pulse Ox O2 O2 Flow FiO2 Time Delivery Rate 06/13/18 98.9 99 18 104/82 98 Nasal 13:00 (89) Cannula 06/13/18 6.0 00:35 06/12/18 30 23:25 Intake and Output 06/12/18 06/12/18 06/13/18 1515:00 23:00 07:00 IntakeIntake Total 3218.044 ml 80.0 ml OutputOutput Total 3010 ml 940 ml BalanceBalance 208.044 ml -860.0 ml Results Result Diagram: 06/13/18 0330 06/13/18 0330 AG FUNG MD June 13, 2018 15:21
--- NOTE | 2018-06-13 18:04 | PN ---
Date/Time of Note Date/Time of Note DATE: 06/13/18 TIME: 17:59 Assessment/Plan VTE Prophylaxis Risk score (from [facility] [place])>0 risk: 4 SCD applied (from [facility] [place]): No SCD contraindicated: bilateral LE trauma Pharmacological prophylaxis: LMWH Lines/Catheters IV Catheter Type ([facility] Cordis Urinary Cath still in place: No Assessment/Plan Problems: (1) Presence of aortocoronary bypass graft Status: Acute Comment: Doing well, post-op. Extubated and stable. CT-S following (2) Postoperative anemia due to acute blood loss Status: Acute Comment: Stabilized and improved w/o transfusion (3) Atelectasis Status: Acute Comment: Encourage IS 10x/hr (4) NSTEMI (non-ST elevated myocardial infarction) Status: Acute Comment: Cardiology optimizing. Pt. on beta-blockade, ASA, atorvastatin (5) Mixed hyperlipidemia Status: Chronic Comment: Cont. atorvastatin (6) Type 2 diabetes mellitus with other specified complication Status: Chronic Comment: Despite good glycemic control, restart metformin 500 mg bid and SGLT-2 inhibitor w/ jardiance 10 mg/d. Pt. will need injection of his dulaglutide 1.5 mg on Monday. Strong data to suggest that SGLT-2i therapy will reduce post-CV event outcomes. Qualifiers: Diabetes mellitus long term acute care registered nurse insulin use: without long term acute care registered nurse use Qualified Codes: E11.69 - Type 2 diabetes mellitus with other specified complication Result Diagram: 06/13/18 1550 06/13/18 0330 Results 24hrs Laboratory Tests Test 06/12/18 18:47 06/12/18 20:03 06/12/18 20:47 06/12/18 20:53 Bedside Glucose 146 171 182 White Blood 13.8 #H Count Red Blood Count 3.85 L Hemoglobin 10.6 L Hematocrit 33.7 L Mean 87.5 Corpuscular Volume Mean 27.5 L Corpuscular Hemoglobin Mean 31.5 L Corpuscular Hemoglobin Conc ent Red Cell 13.1 Distribution Width Platelet Count 189 # Mean Platelet 10.2 Volume Immature 0.600 H Granulocytes % Neutrophils % 74.9 Lymphocytes % 12.6 L Monocytes % 11.7 H Eosinophils % 0.1 Basophils % 0.1 Nucleated Red 0.0 Blood Cells % Immature 0.080 H Granulocytes # Neutrophils # 10.3 H Lymphocytes # 1.7 Monocytes # 1.6 H Eosinophils # 0.0 Basophils # 0.0 Nucleated Red 0.0 Blood Cells # Sodium Level 145 H Potassium Level 4.6 Chloride Level 109 Carbon Dioxide 23 Level Anion Gap 13 Blood Urea 17 Nitrogen Creatinine 1.28 H Est Glomerular 60 Filtrat Rate mL/min Glucose Level 219 Calcium Level 10.9 H Phosphorus 6.9 H Level Magnesium Level 2.5 Test 06/12/18 21:43 06/12/18 22:00 06/12/18 22:46 06/12/18 22:48 Bedside Glucose 185 177 Blood Gas Blood arterial Blood Specimen arterial Source Arterial Blood 06/12/2018 5:35: 06/12/2018 10:4 Date Drawn 42 PM 2:49 PM Arterial Blood 7.450 7.383 pH (Temp corrected ) Arterial Blood 39.6 45.7 H pCO2 (Temp correct) Arterial Blood 67.9 L 107.9 H pO2 (Temp corrected ) Arterial Blood 26.9 H 26.6 H HCO3 Arterial Blood 2.8 1.1 Base Excess Arterial Blood 93.4 L 97.2 Oxygen Saturati on Huy Test N/A N/A Arterial Blood A-Line A-Line Gas Puncture Site Arterial 0.3 0.3 Blood Carboxyhe moglobin Arterial Blood 0.2 0.4 Methemoglobin Blood Gas A-a 605.5 H 269.6 H O2 Differential Oxyhemoglobin 92.9 L 96.5 Percent Blood Gas 37.0 37.0 Temperature Blood Gas 14.0 14.0 Respiration Rate Blood Gas 15 14 Actual Respiration Rat e Blood Gas VENT - AC VENT - AC Modality FiO2 100.0 60.0 Blood Gas Tidal 550.0 550.0 Volume Blood Gas Low 5.0 5.0 PEEP Setting Blood Gas CAYDEN Juanowen Notified Whom A CLERICAL ADMINISTRATIVE ASSISTANT Blood Gas 06/12/2018 5:56: 06/12/2018 10:5 Notified Time 42 PM 4:30 PM Test 06/12/18 23:45 06/13/18 00:00 06/13/18 00:49 06/13/18 02:05 Bedside Glucose 147 144 140 Blood Gas Blood arterial Specimen Source Arterial Blood 06/13/2018 12:05: Date Drawn 52 AM Arterial Blood 7.407 pH (Temp corrected ) Arterial Blood 44.5 pCO2 (Temp correct) Arterial Blood 66.5 L pO2 (Temp corrected ) Arterial Blood 27.4 H HCO3 Arterial Blood 2.3 Base Excess Arterial Blood 91.8 L Oxygen Saturati on Huy Test N/A Arterial Blood A-Line Gas Puncture Site Arterial 0.3 Blood Carboxyhe moglobin Arterial Blood 0.4 Methemoglobin Blood Gas A-a 95.1 H O2 Differential Oxyhemoglobin 91.2 L Percent Blood Gas 37.0 Temperature Blood Gas 21 Actual Respiration Rat e Blood Gas VENT - CPAP Modality FiO2 30.0 Blood Gas Tidal 443.0 Volume Blood Gas Low 5.0 PEEP Setting Blood Gas 8 Pressure Support Blood Gas Notified Whom Blood Gas 06/13/2018 12:16: Notified Time 33 AM Test 06/13/18 02:46 06/13/18 03:30 06/13/18 04:12 06/13/18 04:44 Bedside Glucose 130 129 124 White Blood 11.9 H Count Red Blood Count 3.98 L Hemoglobin 11.2 L Hematocrit 35.1 L Mean 88.2 Corpuscular Volume Mean 28.1 L Corpuscular Hemoglobin Mean 31.9 L Corpuscular Hemoglobin Conc ent Red Cell 13.2 Distribution Width Platelet Count 184 Mean Platelet 10.9 H Volume Immature 0.500 H Granulocytes % Neutrophils % 82.5 H Lymphocytes % 4.8 L Monocytes % 12.0 H Eosinophils % 0.0 Basophils % 0.2 Nucleated Red 0.0 Blood Cells % Immature 0.060 H Granulocytes # Neutrophils # 9.8 H Lymphocytes # 0.6 L Monocytes # 1.4 H Eosinophils # 0.0 Basophils # 0.0 Nucleated Red 0.0 Blood Cells # Prothrombin 13.6 Time Prothrombin 1.1 Time Ratio INR 1.03 International Normalized Rati o Activated 27.0 Partial Thrombo plast Time Sodium Level 148 H Potassium Level 4.7 Chloride Level 110 Carbon Dioxide 28 Level Anion Gap 10 Blood Urea 15 Nitrogen Creatinine 1.13 Est Glomerular > 60 Filtrat Rate mL/min Glucose Level 122 # Calcium Level 10.6 H Magnesium Level 2.3 Test 06/13/18 05:00 06/13/18 05:57 06/13/18 06:48 06/13/18 07:40 Blood Gas Blood arterial Specimen Source Arterial Blood 06/13/2018 5:26:0 Date Drawn 0 AM Arterial Blood 7.397 pH (Temp corrected ) Arterial Blood 41.0 pCO2 (Temp correct) Arterial Blood 64.8 L pO2 (Temp corrected ) Arterial Blood 24.7 HCO3 Arterial Blood -0.2 Base Excess Arterial Blood 92.3 L Oxygen Saturati on Huy Test N/A Arterial Blood A-Line Gas Puncture Site Arterial 0.3 Blood Carboxyhe moglobin Arterial Blood 0.3 Methemoglobin Blood Gas A-a 86.5 H O2 Differential Oxyhemoglobin 91.7 L Percent Blood Gas 37.0 Temperature Blood Gas NASAL CANNULA Modality FiO2 28.0 Blood Gas Notified Whom Blood Gas 06/13/2018 5:37:0 Notified Time 0 AM Bedside Glucose 105 119 127 Test 06/13/18 09:02 06/13/18 10:19 06/13/18 11:06 06/13/18 12:09 Bedside Glucose 151 191 201 221 H Test 06/13/18 12:53 06/13/18 13:53 06/13/18 15:07 06/13/18 15:50 Bedside Glucose 177 175 136 Hematocrit 37.0 L Test 06/13/18 15:51 06/13/18 17:25 Bedside Glucose 117 117 Subjective 24 Hr Interval Summary Constitutional: no complaints, improved Respiratory: no complaints Cardiovascular: chest pain Gastrointestinal: no complaints Genitourinary: no complaints Musculoskeletal: no complaints Neurologic: no complaints Exam/Review of Systems Exam Vitals VS - Last 72 Hours, by Label Date Temp Pulse Resp B/P (MAP) Pulse Ox O2 O2 Flow FiO2 Time Delivery Rate 06/13/18 89 21 105/78 97 Nasal 17:00 (87) Cannula 06/13/18 97 16:00 06/13/18 98.4 98 21 114/85 97 Nasal 16:00 (95) Cannula 06/13/18 97 27 110/64 98 Nasal 15:00 (79) Cannula 06/13/18 101 27 107/88 98 Nasal 14:00 (94) Cannula 06/13/18 98.9 99 18 104/82 98 Nasal 13:00 (89) Cannula 06/13/18 101 23 109/75 96 Nasal 12:00 (86) Cannula 06/13/18 102 12:00 06/13/18 112 14 118/78 94 11:30 (91) 06/13/18 102 19 98/80 (86) 95 Nasal 11:00 Cannula 06/13/18 100 18 123/78 97 10:30 (93) 06/13/18 99.0 110 24 109/73 95 Nasal 10:00 (85) Cannula 06/13/18 98.9 116 17 117/82 93 09:30 (94) 06/13/18 116 17 117/82 93 09:30 (94) 06/13/18 111 35 132/79 92 09:15 (96) 06/13/18 104 27 126/84 93 Nasal 09:00 (98) Cannula 06/13/18 98.6 104 27 126/84 93 09:00 (98) 06/13/18 109 20 128/82 93 08:45 (97) 06/13/18 104 23 117/78 96 08:30 (91) 06/13/18 104 23 117/78 96 Nasal 08:30 (91) Cannula 06/13/18 106 21 114/73 95 08:15 (87) 06/13/18 98.7 106 21 114/73 95 Nasal 08:15 (87) Cannula 06/13/18 106 18 123/74 96 Nasal 08:00 (90) Cannula 06/13/18 101 08:00 06/13/18 98.7 106 18 123/74 96 08:00 (90) 06/13/18 106 19 94 07:45 06/13/18 106 19 141/74 95 07:30 (96) 06/13/18 109 20 110/72 95 07:15 (85) 06/13/18 106 20 119/74 95 07:00 (89) 06/13/18 106 17 120/70 95 06:45 (87) 06/13/18 106 26 133/69 96 06:30 (90) 06/13/18 105 22 124/68 95 06:15 (86) 06/13/18 100.6 113 26 111/66 95 06:00 (81) 06/13/18 109 23 133/70 95 05:45 (91) 06/13/18 107 20 120/62 92 05:30 (81) 06/13/18 113 20 119/74 93 05:15 (89) 06/13/18 100.4 115 20 122/68 90 05:00 (86) 06/13/18 117 22 128/69 93 04:45 (88) 06/13/18 111 24 124/67 93 04:30 (86) 06/13/18 112 26 118/68 93 04:15 (85) 06/13/18 100.5 112 20 130/69 92 04:00 (89) 06/13/18 122 04:00 06/13/18 116 26 129/69 91 03:45 (89) 06/13/18 119 17 113/63 92 03:30 (80) 06/13/18 110 20 128/67 93 03:15 (87) 06/13/18 100.5 112 20 130/69 92 03:00 (89) 06/13/18 112 22 124/67 93 02:45 (86) 06/13/18 117 18 121/66 93 02:30 (84) 06/13/18 112 28 114/66 95 02:15 (82) 06/13/18 100.6 112 21 115/65 94 02:00 (82) 06/13/18 109 17 124/66 97 01:45 (85) 06/13/18 108 21 135/67 97 01:30 (89) 06/13/18 108 25 132/68 96 01:15 (89) 06/13/18 99.8 111 24 137/77 96 01:00 (97) 06/13/18 112 23 131/71 96 00:45 (91) 06/13/18 95 6.0 00:35 06/13/18 95 6.0 00:35 06/13/18 110 18 138/69 93 00:30 (92) 06/13/18 109 27 126/66 92 00:15 (86) 06/13/18 105 00:00 06/13/18 99.8 105 18 127/65 92 00:00 (85) 06/12/18 108 24 131/67 93 23:45 (88) 06/12/18 104 22 125/67 93 23:30 (86) 06/12/18 107 21 93 30 23:25 06/12/18 106 23 111/63 94 23:15 (79) 06/12/18 103 14 97 30 23:01 06/12/18 99.8 105 25 118/64 96 23:00 (82) 06/12/18 106 18 117/64 99 22:45 (81) 06/12/18 30 22:30 06/12/18 109 22 110/61 99 22:15 (77) 06/12/18 99.4 108 25 102/58 98 22:00 (73) 06/12/18 40 22:00 06/12/18 110 22 119/66 100 21:45 (83) 06/12/18 106 19 114/62 97 21:30 (79) 06/12/18 105 21 116/62 98 21:15 (80) 06/12/18 106 16 99 60 21:10 06/12/18 99.0 108 21 101/56 94 21:00 (71) 06/12/18 108 29 106/58 97 20:45 (74) 06/12/18 104 24 110/57 95 20:30 (74) 06/12/18 105 26 90/47 (61) 98 20:15 06/12/18 99 60 20:05 06/12/18 60 20:00 06/12/18 106 20:00 06/12/18 98.6 104 20 112/59 100 20:00 (76) 06/12/18 106 18 109/57 99 19:45 (74) 06/12/18 106 18 104/53 97 19:30 (70) 06/12/18 102 20 98 80 19:23 06/12/18 104 22 105/55 96 19:15 (72) 06/12/18 98.7 98 20 111/57 100 19:00 (75) 06/12/18 98.7 100 17 102/57 100 18:45 (72) 06/12/18 98.7 94 19 108/57 100 18:30 (74) 06/12/18 97.7 94 16 118/62 100 18:15 (80) 06/12/18 97.7 91 14 121/62 99 18:00 (81) 06/12/18 92 16 100 100 17:50 06/12/18 97.7 87 17 130/66 98 17:45 (87) 06/12/18 96.6 88 17 127/64 92 17:30 (85) 06/12/18 96.6 88 17 120/61 92 17:15 (80) 06/12/18 98.2 17:00 06/12/18 96.6 88 18 136/68 93 17:00 (90) 06/12/18 84 18 90 100 16:30 06/12/18 96.6 83 16:30 06/12/18 100 16:30 06/12/18 89 16:00 06/12/18 84 12:00 06/12/18 97 08:00 06/12/18 99.2 62 20 115/72 96 Room Air 07:37 (86) 06/12/18 98.4 83 18 104/60 92 04:45 (75) 06/12/18 78 04:00 06/12/18 97.5 83 18 102/55 93 00:31 (71) 06/12/18 81 00:00 06/11/18 98.7 20 89 117/77 94 20:16 (90) 06/11/18 89 20:00 06/11/18 71 16:15 06/11/18 98.5 76 20 133/82 94 16:01 (99) 06/11/18 98.4 73 20 126/82 96 12:23 (97) 06/11/18 84 12:22 06/11/18 78 20 140/90 100 Room Air 11:56 (107) 06/11/18 80 18 124/82 96 Room Air 11:26 (96) 06/11/18 98.2 82 12 120/75 97 Room Air 10:56 (90) 06/11/18 84 13 118/86 97 Room Air 10:51 (97) 06/11/18 86 17 114/77 97 Room Air 10:46 (89) 06/11/18 84 19 123/76 97 Room Air 10:41 (92) 06/11/18 86 12 119/81 96 Room Air 10:36 (94) 06/11/18 84 12 116/52 96 Room Air 10:31 (73) 06/11/18 86 16 113/74 96 Room Air 10:26 (87) 06/11/18 86 15 113/59 95 Room Air 10:21 (77) 06/11/18 82 12 114/75 96 Room Air 10:16 (88) 06/11/18 82 10 118/78 96 Room Air 10:11 (91) 06/11/18 80 10 114/79 97 Room Air 10:06 (91) 06/11/18 99.1 84 132/84 97 Room Air 10:00 (100) 06/11/18 81 08:45 06/11/18 98.3 81 20 117/71 95 07:37 (86) 06/11/18 97.9 75 18 97/52 (67) 98 04:02 06/11/18 77 04:00 06/11/18 97.9 82 18 132/76 99 00:46 (94) 06/11/18 88 00:00 06/10/18 98.6 91 18 134/74 95 Room Air 21:11 (94) 06/10/18 103 20:42 06/10/18 86 18 121/83 97 Room Air 20:17 (96) 06/10/18 86 16 143/86 96 Room Air 18:37 (105) Vital Signs Date Temp Pulse Resp B/P (MAP) Pulse Ox O2 O2 Flow FiO2 Time Delivery Rate 06/13/18 89 21 105/78 97 Nasal 17:00 (87) Cannula 06/13/18 98.4 16:00 06/13/18 6.0 00:35 06/12/18 30 23:25 Intake and Output 06/12/18 06/12/18 06/13/18 1515:00 23:00 07:00 IntakeIntake Total 3218.044 ml 80.0 ml OutputOutput Total 3010 ml 940 ml BalanceBalance 208.044 ml -860.0 ml Constitutional: alert, oriented, well developed Psych: no complaints, nl mood/affect Respiratory: clear to auscultation, normal air movement Cardiovascular: regular rate and rhythm, nl pulses, other (post-sternotomy); No edema, No murmurs/extra sounds, No rub Gastrointestinal: soft, nl liver, spleen, non-tender, bowel sounds; No mass, No rebound or guarding Musculoskeletal: nl extremities to inspection Extremities: normal pulses; No cyanosis, No clubbing, No edema 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: STUDIO 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 intact, nl mental status, nl speech, nl strength Additional Comments Bedside Glucose - 72 Hours Test 06/10/18 21:28 06/11/18 07:35 06/11/18 10:50 06/11/18 15:03 Bedside 115 112 118 174 Glucose mg/dL (70-220) mg/dL (70-220) mg/dL (70-220) mg/dL (70-220) Test 06/11/18 17:36 06/11/18 19:46 06/12/18 08:01 06/12/18 16:26 Bedside 105 115 126 75 Glucose mg/dL (70-220) mg/dL (70-220) mg/dL (70-220) mg/dL (70-220) Test 06/12/18 16:45 06/12/18 17:25 06/12/18 17:52 06/12/18 18:47 Bedside 178 132 136 146 Glucose mg/dL (70-220) mg/dL (70-220) mg/dL (70-220) mg/dL (70-220) Test 06/12/18 20:03 06/12/18 20:53 06/12/18 21:43 06/12/18 22:46 Bedside 171 182 185 177 Glucose mg/dL (70-220) mg/dL (70-220) mg/dL (70-220) mg/dL (70-220) Test 06/12/18 23:45 06/13/18 00:49 06/13/18 02:05 06/13/18 02:46 Bedside 147 144 140 130 Glucose mg/dL (70-220) mg/dL (70-220) mg/dL (70-220) mg/dL (70-220) Test 06/13/18 04:12 06/13/18 04:44 06/13/18 05:57 06/13/18 06:48 Bedside 129 124 105 119 Glucose mg/dL (70-220) mg/dL (70-220) mg/dL (70-220) mg/dL (70-220) Test 06/13/18 07:40 06/13/18 09:02 06/13/18 10:19 06/13/18 11:06 Bedside 127 151 191 201 Glucose mg/dL (70-220) mg/dL (70-220) mg/dL (70-220) mg/dL (70-220) Test 06/13/18 12:09 06/13/18 12:53 06/13/18 13:53 06/13/18 15:07 Bedside 221 177 175 136 Glucose mg/dL (70-220) mg/dL (70-220) mg/dL (70-220) mg/dL (70-220) H Test 06/13/18 15:51 06/13/18 17:25 Bedside 117 117 Glucose mg/dL (70-220) mg/dL (70-220) Results Results 24hrs Laboratory Tests Test 06/12/18 18:47 06/12/18 20:03 06/12/18 20:47 06/12/18 20:53 Bedside Glucose 146 171 182 White Blood 13.8 #H Count Red Blood Count 3.85 L Hemoglobin 10.6 L Hematocrit 33.7 L Mean 87.5 Corpuscular Volume Mean 27.5 L Corpuscular Hemoglobin Mean 31.5 L Corpuscular Hemoglobin Conc ent Red Cell 13.1 Distribution Width Platelet Count 189 # Mean Platelet 10.2 Volume Immature 0.600 H Granulocytes % Neutrophils % 74.9 Lymphocytes % 12.6 L Monocytes % 11.7 H Eosinophils % 0.1 Basophils % 0.1 Nucleated Red 0.0 Blood Cells % Immature 0.080 H Granulocytes # Neutrophils # 10.3 H Lymphocytes # 1.7 Monocytes # 1.6 H Eosinophils # 0.0 Basophils # 0.0 Nucleated Red 0.0 Blood Cells # Sodium Level 145 H Potassium Level 4.6 Chloride Level 109 Carbon Dioxide 23 Level Anion Gap 13 Blood Urea 17 Nitrogen Creatinine 1.28 H Est Glomerular 60 Filtrat Rate mL/min Glucose Level 219 Calcium Level 10.9 H Phosphorus 6.9 H Level Magnesium Level 2.5 Test 06/12/18 21:43 06/12/18 22:00 06/12/18 22:46 06/12/18 22:48 Bedside Glucose 185 177 Blood Gas Blood arterial Blood Specimen arterial Source Arterial Blood 06/12/2018 5:35: 06/12/2018 10:4 Date Drawn 42 PM 2:49 PM Arterial Blood 7.450 7.383 pH (Temp corrected ) Arterial Blood 39.6 45.7 H pCO2 (Temp correct) Arterial Blood 67.9 L 107.9 H pO2 (Temp corrected ) Arterial Blood 26.9 H 26.6 H HCO3 Arterial Blood 2.8 1.1 Base Excess Arterial Blood 93.4 L 97.2 Oxygen Saturati on Huy Test N/A N/A Arterial Blood A-Line A-Line Gas Puncture Site Arterial 0.3 0.3 Blood Carboxyhe moglobin Arterial Blood 0.2 0.4 Methemoglobin Blood Gas A-a 605.5 H 269.6 H O2 Differential Oxyhemoglobin 92.9 L 96.5 Percent Blood Gas 37.0 37.0 Temperature Blood Gas 14.0 14.0 Respiration Rate Blood Gas 15 14 Actual Respiration Rat e Blood Gas VENT - AC VENT - AC Modality FiO2 100.0 60.0 Blood Gas Tidal 550.0 550.0 Volume Blood Gas Low 5.0 5.0 PEEP Setting Blood Gas CAYDEN Douglas Notified Whom A CLERICAL ADMINISTRATIVE ASSISTANT Blood Gas 06/12/2018 5:56: 06/12/2018 10:5 Notified Time 42 PM 4:30 PM Test 06/12/18 23:45 06/13/18 00:00 06/13/18 00:49 06/13/18 02:05 Bedside Glucose 147 144 140 Blood Gas Blood arterial Specimen Source Arterial Blood 06/13/2018 12:05: Date Drawn 52 AM Arterial Blood 7.407 pH (Temp corrected ) Arterial Blood 44.5 pCO2 (Temp correct) Arterial Blood 66.5 L pO2 (Temp corrected ) Arterial Blood 27.4 H HCO3 Arterial Blood 2.3 Base Excess Arterial Blood 91.8 L Oxygen Saturati on Huy Test N/A Arterial Blood A-Line Gas Puncture Site Arterial 0.3 Blood Carboxyhe moglobin Arterial Blood 0.4 Methemoglobin Blood Gas A-a 95.1 H O2 Differential Oxyhemoglobin 91.2 L Percent Blood Gas 37.0 Temperature Blood Gas 21 Actual Respiration Rat e Blood Gas VENT - CPAP Modality FiO2 30.0 Blood Gas Tidal 443.0 Volume Blood Gas Low 5.0 PEEP Setting Blood Gas 8 Pressure Support Blood Gas Notified Whom Blood Gas 06/13/2018 12:16: Notified Time 33 AM Test 06/13/18 02:46 06/13/18 03:30 06/13/18 04:12 06/13/18 04:44 Bedside Glucose 130 129 124 White Blood 11.9 H Count Red Blood Count 3.98 L Hemoglobin 11.2 L Hematocrit 35.1 L Mean 88.2 Corpuscular Volume Mean 28.1 L Corpuscular Hemoglobin Mean 31.9 L Corpuscular Hemoglobin Conc ent Red Cell 13.2 Distribution Width Platelet Count 184 Mean Platelet 10.9 H Volume Immature 0.500 H Granulocytes % Neutrophils % 82.5 H Lymphocytes % 4.8 L Monocytes % 12.0 H Eosinophils % 0.0 Basophils % 0.2 Nucleated Red 0.0 Blood Cells % Immature 0.060 H Granulocytes # Neutrophils # 9.8 H Lymphocytes # 0.6 L Monocytes # 1.4 H Eosinophils # 0.0 Basophils # 0.0 Nucleated Red 0.0 Blood Cells # Prothrombin 13.6 Time Prothrombin 1.1 Time Ratio INR 1.03 International Normalized Rati o Activated 27.0 Partial Thrombo plast Time Sodium Level 148 H Potassium Level 4.7 Chloride Level 110 Carbon Dioxide 28 Level Anion Gap 10 Blood Urea 15 Nitrogen Creatinine 1.13 Est Glomerular > 60 Filtrat Rate mL/min Glucose Level 122 # Calcium Level 10.6 H Magnesium Level 2.3 Test 06/13/18 05:00 06/13/18 05:57 06/13/18 06:48 06/13/18 07:40 Blood Gas Blood arterial Specimen Source Arterial Blood 06/13/2018 5:26:0 Date Drawn 0 AM Arterial Blood 7.397 pH (Temp corrected ) Arterial Blood 41.0 pCO2 (Temp correct) Arterial Blood 64.8 L pO2 (Temp corrected ) Arterial Blood 24.7 HCO3 Arterial Blood -0.2 Base Excess Arterial Blood 92.3 L Oxygen Saturati on Huy Test N/A Arterial Blood A-Line Gas Puncture Site Arterial 0.3 Blood Carboxyhe moglobin Arterial Blood 0.3 Methemoglobin Blood Gas A-a 86.5 H O2 Differential Oxyhemoglobin 91.7 L Percent Blood Gas 37.0 Temperature Blood Gas NASAL CANNULA Modality FiO2 28.0 Blood Gas Notified Whom Blood Gas 06/13/2018 5:37:0 Notified Time 0 AM Bedside Glucose 105 119 127 Test 06/13/18 09:02 06/13/18 10:19 06/13/18 11:06 06/13/18 12:09 Bedside Glucose 151 191 201 221 H Test 06/13/18 12:53 06/13/18 13:53 06/13/18 15:07 06/13/18 15:50 Bedside Glucose 177 175 136 Hematocrit 37.0 L Test 06/13/18 15:51 06/13/18 17:25 Bedside Glucose 117 117 Medications Medication Current Medications Potassium Chloride 40 meq/ Calcium Chloride 1 gm/Dextrose/ Sodium Chloride 1,030 ml @ 60 mls/hr [id number] IV Last administered on 06/12/18at 18:53; Admin Dose 60 MLS/HR; Start 06/12/18 at 18:30 Hydromorphone HCl (Dilaudid) 0.2 mg Q15M PRN IV PAIN LEVEL 1-5; Start 06/12/18 at 16:30 Hydromorphone HCl (Dilaudid) 0.4 mg Q15M PRN IV PAIN LEVEL 6-10; Start 06/12/18 at 16:30 Oxycodone/ Acetaminophen (Percocet (5/ 325)) 1 tab Q3H PRN PO PAIN LEVEL 1-5; Start 06/12/18 at 16:30 Oxycodone/ Acetaminophen (Percocet (5/ 325)) 2 tab Q3H PRN PO PAIN LEVEL 6-10 Last administered on 06/13/18at 08:32; Admin Dose 2 TAB; Start 06/12/18 at 16:30 Ondansetron HCl (Zofran Inj) 4 mg Q6H PRN IV NAUSEA AND/OR VOMITING Last administered on 06/13/18at 01:03; Admin Dose 4 MG; Start 06/12/18 at 16:30 Famotidine (Pepcid Iv) 20 mg BID@08,20 IV Last administered on 06/13/18at 08:24; Admin Dose 20 MG; Start 06/12/18 at 20:00 Famotidine (Pepcid) 20 mg BID PO ; Start 06/12/18 at 21:00; Status Hold Acetaminophen (Tylenol Tab) 650 mg Q3H PRN PO ELEVATED TEMPERATURE; Start 06/12/18 at 16:30 Potassium Chloride 50 ml @ 50 mls/hr SEE DIRECTION PRN IVPB K+ LEVEL Last admini stered on 06/12/18at 18:47; Admin Dose 50 MLS/HR; Start 06/12/18 at 16:30 Magnesium Sulfate/ Dextrose 100 ml @ 100 mls/hr PRN PRN IVPB PENDING LAB VALUE; Start 06/12/18 at 16:30 Nitroglycerin/ Dextrose 250 ml @ 1.5 mls/hr PER PROTOCOL IV Last administered on 06/12/18at 18:07; Admin Dose 15 MLS/HR; Start 06/12/18 at 16:30 Dopamine HCl/ Dextrose 250 ml @ 5.97 mls/hr PER PROTOCOL IV ; Start 06/12/18 at 16:30 Enoxaparin Sodium (Lovenox) 40 mg DAILY SC Last administered on 06/13/18at 08:29; Admin Dose 40 MG; Start 06/13/18 at 09:00 Atorvastatin Calcium (Lipitor) 80 mg HS PO ; Start 06/12/18 at 21:00 Albumin Human 250 ml @ 500 mls/hr PRN PRN IV CVP< 8, OR SBP<90; Start 06/12/18 at 18:30 Diagnostic Test (Pha) (Accu-Chek) 1 ea Q1H XX Last administered on 06/13/18at 17:25; Admin Dose 1 EA; Start 06/12/18 at 21:00 Insulin Human Regular 100 unit/ Sodium Chloride 100 ml @ 0 mls/hr PER PROTOCOL IV Last administered on 06/12/18at 20:32; Admin Dose 2 MLS/HR; Start 06/12/18 at 20:30 Miscellaneous Information (* Miscellaneous Pharmacy Order) Treatment of Hypoglycemia: 1.BG 51... Per protocol XX ; Start 06/12/18 at 20:30 Dextrose (D50w Syringe) 25 ml Q15M PRN IV .DECREASED GLUCOSE; Start 06/12/18 at 20:30 Dextrose (D50w Syringe) 50 ml Q15M PRN IV .DECREASED GLUCOSE; Start 06/12/18 at 20:30 Aspirin (Ecotrin) 325 mg DAILY PO Last administered on 06/13/18at 09:15; Admin Dose 325 MG; Start 06/13/18 at 09:00 Metoprolol Tartrate (Lopressor) 25 mg BID PO Last administered on 06/13/18at 09:06; Admin Dose 25 MG; Start 06/13/18 at 09:00 Ibuprofen (Motrin) 600 mg TID PO Last administered on 06/13/18at 12:16; Admin Dose 600 MG; Start 06/13/18 at 10:00 MAR CORTEZ MD June 13, 2018 18:04
[2018-06-13] MEDS ORDERED: GLUCOSE GEL 15 GRAM TUBE BUCCAL PRN (18:30)
[2018-06-13] MEDS ORDERED: DEXTROSE 50% 50 ML SYRINGE IV PRN ×2 (18:30)
[2018-06-13] MEDS ORDERED: GLUCAGON 1 MG INJ IM PRN (18:30)
[2018-06-13] MEDS ORDERED: GLUCOSE GEL 15 GRAM TUBE PO PRN ×2 (18:30)
[2018-06-13] MEDS: ATORVASTATIN 80 MG TAB PO SCH (20:38)
[2018-06-13] MEDS ORDERED: metFORMIN (XR) 500 MG TAB PO SCH (21:00)
[2018-06-14] VITALS (24 sets, daily range): BP systolic 91–116; BP diastolic 59–86; PULSE 73–110; RESP 13–33
[2018-06-14] MEDS: ACCU-CHEK XX SCH ×7 (00:42→08:35)
[2018-06-14] MEDS: POTASSIUM CHLORIDE 40 MEQ, CALCIUM CHLORIDE 10% 1 GM in DEXTROSE 5%-0.225% NACL 1,000 ML IV SCH ×2 (03:56→22:00)
--- NOTE | 2018-06-14 06:21 | PN ---
Date/Time of Note Date/Time of Note DATE: 06/14/18 TIME: 06:20 Assessment/Plan Lines/Catheters IV Catheter Type (from Nrs): Peripheral IV Lai in Place (from Nrs): No Assessment/Plan Assessment/Plan doing well. NSR. labs ok. d/c chest tubes and pacing wires. transfer to tele Exam/Review of Systems Vital Signs Vitals Vital Signs Date Temp Pulse Resp B/P (MAP) Pulse Ox O2 O2 Flow FiO2 Time Delivery Rate 06/14/18 93 13 96/64 (75) 96 Nasal 05:00 Cannula 06/14/18 4.0 04:21 06/14/18 98.6 04:00 06/12/18 30 23:25 Intake and Output 06/13/18 06/13/18 06/14/18 1414:59 22:59 06:59 IntakeIntake Total 1243.0 ml 301 ml 100 ml OutputOutput Total 1795 ml 415 ml 290 ml BalanceBalance -552.0 ml -114 ml -190 ml Results Result Diagram: 06/14/18 0435 06/14/18 0435 AG FUNG MD June 14, 2018 06:21
--- NOTE | 2018-06-14 08:27 | CONS ---
Assessment/Plan Assessment/Plan Hospital Course (Demo Recall) Fevers likely due to pericarditis: mild fevers and significant pericardial rub on exam 06/13 consistent with pericarditis. 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 s/p CABG CAD s/p CABG: STERN-LAD, SVG-PDA, SVG-OM 06/12/2018. Acute respiratory failure: extubated 06/12 DM HL -ok for tele -no further lasix -ibuprofen 600mg TID, taper to 400mg TID tomorrow, then 200mg TID Monday, then d/c Monday -already on pepcid for GI prophylaxis -decrease to ASA 81mg -add plavix due to NSTEMI -lipitor 80mg -decrease to metoprolol 12.5mg BID Consultation Date/Type/Reason Admit Date/Time Jun 12, 2018 at 16:00 Initial Consult Date 06/11/18 Type of Consult Cardiology Requesting Provider: SRIKANTH HERNANDEZ MD Date/Time of Note DATE: 06/14/18 TIME: 08:21 24 HR Interval Summary Free Text/Dictation No further fevers. No chest pain except with deep inspiration. BP marginal. All lines d/c-ed/ Plan for tele transfer today. Walked around already yesterday Exam/Review of Systems Vital Signs Vitals Vital Signs Date Temp Pulse Resp B/P (MAP) Pulse Ox O2 O2 Flow FiO2 Time Delivery Rate 06/14/18 107 19 110/76 95 Nasal 06:00 (87) Cannula 06/14/18 4.0 04:21 06/14/18 98.6 04:00 06/12/18 30 23:25 Intake and Output 06/13/18 06/13/18 06/14/18 1515:00 23:00 07:00 IntakeIntake Total 1206.0 ml 277 ml 100 ml OutputOutput Total 1705 ml 415 ml 490 ml BalanceBalance -499.0 ml -138 ml -390 ml Exam Constitutional: alert, oriented Psych: no complaints, nl mood/affect Head: normocephalic, atraumatic Neck: supple; No jvd Respiratory: diminished breath sounds; No clear to auscultation Cardiovascular: regular rate and rhythm, rub (mild and improved); No edema, No systolic murmur Gastrointestinal: soft, non-tender; No distended 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: nl mental status, nl speech Labs Result Diagram: 06/14/18 0435 06/14/18 0435 Results 24hrs Laboratory Tests Test 06/13/18 09:02 06/13/18 10:19 06/13/18 11:06 06/13/18 12:09 Bedside Glucose 151 191 201 221 H Test 06/13/18 12:53 06/13/18 13:53 06/13/18 15:07 06/13/18 15:50 Bedside Glucose 177 175 136 Hematocrit 37.0 L Test 06/13/18 15:51 06/13/18 17:25 06/13/18 19:16 06/13/18 20:26 Bedside Glucose 117 117 214 199 Test 06/13/18 21:24 06/13/18 22:33 06/13/18 23:45 06/14/18 01:33 Bedside Glucose 149 136 151 117 Test 06/14/18 03:38 06/14/18 04:35 06/14/18 05:34 Bedside Glucose 123 110 White Blood Count 11.6 H Red Blood Count 3.99 L Hemoglobin 11.1 L Hematocrit 35.3 L Mean Corpuscular Volume 88.5 Mean Corpuscular 27.8 L Hemoglobin Mean Corpuscular 31.4 L Hemoglobin Concent Red Cell Distribution 13.3 Width Platelet Count 146 # Mean Platelet Volume 10.5 H Immature Granulocytes % 0.400 Neutrophils % 76.4 Lymphocytes % 8.7 L Monocytes % 12.6 H Eosinophils % 1.6 Basophils % 0.3 Nucleated Red Blood 0.0 Cells % Immature Granulocytes # 0.050 H Neutrophils # 8.8 H Lymphocytes # 1.0 Monocytes # 1.5 H Eosinophils # 0.2 Basophils # 0.0 Nucleated Red Blood 0.0 Cells # Sodium Level 144 Potassium Level 4.3 Chloride Level 107 Carbon Dioxide Level 30 Anion Gap 7 Blood Urea Nitrogen 19 Creatinine 1.17 Est Glomerular Filtrat > 60 Rate mL/min Glucose Level 111 Calcium Level 9.7 Medications Medications Current Medications Potassium Chloride 40 meq/ Calcium Chloride 1 gm/Dextrose/ Sodium Chloride 1,030 ml @ 60 mls/hr [id number] IV Last administered on 06/12/18at 18:53; Admin Dose 60 MLS/HR; Start 06/12/18 at 18:30 Hydromorphone HCl (Dilaudid) 0.2 mg Q15M PRN IV PAIN LEVEL 1-5; Start 06/12/18 at 16:30 Hydromorphone HCl (Dilaudid) 0.4 mg Q15M PRN IV PAIN LEVEL 6-10; Start 06/12/18 at 16:30 Oxycodone/ Acetaminophen (Percocet (5/ 325)) 1 tab Q3H PRN PO PAIN LEVEL 1-5; Start 06/12/18 at 16:30 Oxycodone/ Acetaminophen (Percocet (5/ 325)) 2 tab Q3H PRN PO PAIN LEVEL 6-10 Last administered on 06/13/18at 08:32; Admin Dose 2 TAB; Start 06/12/18 at 16:30 Ondansetron HCl (Zofran Inj) 4 mg Q6H PRN IV NAUSEA AND/OR VOMITING Last administered on 06/13/18at 01:03; Admin Dose 4 MG; Start 06/12/18 at 16:30 Famotidine (Pepcid Iv) 20 mg BID@08,20 IV Last administered on 06/13/18at 20:38; Admin Dose 20 MG; Start 06/12/18 at 20:00 Famotidine (Pepcid) 20 mg BID PO ; Start 06/12/18 at 21:00; Status Hold Acetaminophen (Tylenol Tab) 650 mg Q3H PRN PO ELEVATED TEMPERATURE; Start 06/12/18 at 16:30 Potassium Chloride 50 ml @ 50 mls/hr SEE DIRECTION PRN IVPB K+ LEVEL Last administered on 06/12/18at 18:47; Admin Dose 50 MLS/HR; Start 06/12/18 at 16:30 Magnesium Sulfate/ Dextrose 100 ml @ 100 mls/hr PRN PRN IVPB PENDING LAB VALUE; Start 06/12/18 at 16:30 Nitroglycerin/ Dextrose 250 ml @ 1.5 mls/hr PER PROTOCOL IV Last administered on 06/12/18at 18:07; Admin Dose 15 MLS/HR; Start 06/12/18 at 16:30 Dopamine HCl/ Dextrose 250 ml @ 5.97 mls/hr PER PROTOCOL IV ; Start 06/12/18 at 16:30 Enoxaparin Sodium (Lovenox) 40 mg DAILY SC Last administered on 06/13/18at 08:29; Admin Dose 40 MG; Start 06/13/18 at 09:00 Atorvastatin Calcium (Lipitor) 80 mg HS PO Last administered on 06/13/18at 20:38; Admin Dose 80 MG; Start 06/12/18 at 21:00 Albumin Human 250 ml @ 500 mls/hr PRN PRN IV CVP< 8, OR SBP<90; Start 06/12/18 at 18:30 Diagnostic Test (Pha) (Accu-Chek) 1 ea Q1H XX Last administered on 06/14/18at 05:36; Admin Dose 1 EA; Start 06/12/18 at 21:00 Insulin Human Regular 100 unit/ Sodium Chloride 100 ml @ 0 mls/hr PER PROTOCOL IV Last administered on 06/12/18at 20:32; Admin Dose 2 MLS/HR; Start 06/12/18 at 20:30 Miscellaneous Information (* Miscellaneous Pharmacy Order) Treatment of Hypoglycemia: 1.BG 51... Per protocol XX ; Start 06/12/18 at 20:30 Dextrose (D50w Syringe) 25 ml Q15M PRN IV .DECREASED GLUCOSE; Start 06/12/18 at 20:30 Dextrose (D50w Syringe) 50 ml Q15M PRN IV .DECREASED GLUCOSE; Start 06/12/18 at 20:30 Aspirin (Ecotrin) 325 mg DAILY PO Last administered on 06/13/18at 09:15; Admin Dose 325 MG; Start 06/13/18 at 09:00 Metoprolol Tartrate (Lopressor) 25 mg BID PO Last administered on 06/13/18at 20:39; Admin Dose 25 MG; Start 06/13/18 at 09:00 Ibuprofen (Motrin) 600 mg TID PO Last administered on 06/13/18at 20:39; Admin Dose 600 MG; Start 06/13/18 at 10:00 Empaglifozin (Jardiance) 10 mg DAILY@08 PO ; Start 06/14/18 at 08:00 Metformin HCl (Glucophage Xr) 500 mg BID PO ; Start 06/13/18 at 21:00; Status Hold Miscellaneous Information 1 ea NOTE XX ; Start 06/13/18 at 18:30 Glucose (Glutose) 15 gm Q15M PRN PO DECREASED GLUCOSE; Start 06/13/18 at 18:30 Glucose (Glutose) 22.5 gm Q15M PRN PO DECREASED GLUCOSE; Start 06/13/18 at 18:30 Dextrose (D50w Syringe) 25 ml Q15M PRN IV DECREASED GLUCOSE; Start 06/13/18 at 18:30 Dextrose (D50w Syringe) 50 ml Q15M PRN IV DECREASED GLUCOSE; Start 06/13/18 at 18:30 Glucagon (Glucagen) 1 mg Q15M PRN IM DECREASED GLUCOSE; Start 06/13/18 at 18:30 Glucose (Glutose) 15 gm Q15M PRN BUCCAL DECREASED GLUCOSE; Start 06/13/18 at 18:30 NOEL TEIXEIRA June 14, 2018 08:27
[2018-06-14] MEDS: ENOXAPARIN 40 MG/0.4 ML SYG SC SCH (08:30)
[2018-06-14] MEDS: FAMOTIDINE 20 MG INJ IV SCH ×2 (08:32→20:48)
[2018-06-14] MEDS: EMPAGLIFLOZIN 10 MG TABLET PO SCH (08:33)
[2018-06-14] MEDS: IBUPROFEN 600 MG TAB PO SCH ×3 (08:33→20:47)
[2018-06-14] MEDS: OXYCODONE/ACETAMINOPHEN (5/325) TAB PO PRN (09:15)
[2018-06-14] MEDS: CLOPIDOGREL 75 MG TAB PO SCH (09:16)
[2018-06-14] MEDS: METOPROLOL 25 MG TAB PO SCH ×2 (09:16→20:48)
[2018-06-14] MEDS: ASPIRIN 81 MG TAB PO SCH (09:16)
[2018-06-14] MEDS ORDERED: metFORMIN (XR) 500 MG TAB PO SCH (10:00)
[2018-06-14] MEDS: INSULIN ASPART [NOVOLOG] 3 ML PEN SC SCH ×3 (11:58→20:45)
[2018-06-14] MEDS ORDERED: POLYETHYLENE GLYCOL 17 GM PACKET PO PRN (14:30)
[2018-06-14] MEDS: DOCUSATE SODIUM 100 MG CAP PO SCH ×2 (15:17→20:46)
--- NOTE | 2018-06-14 16:07 | RADRPT ---
Vent Rate: 100 bpm RR Interval: 600 msec OR Interval: 122 msec QRS Duration: 94 msec QT Interval: 331 msec QTC Interval: 427 msec P-R-T Mio: 28 - 55 - 48 degrees Sinus tachycardia...rate> 99 ST elevation suggests acute pericarditis...ST >0.10mV, ant/lat/inf Electronically Signed By: Kenneth Pichardo
--- NOTE | 2018-06-14 16:15 | RADRPT ---
Vent Rate: 94 bpm RR Interval: 636 msec IN Interval: 126 msec QRS Duration: 104 msec QT Interval: 372 msec QTC Interval: 466 msec P-R-T Nicasio: 34 - 55 - 59 degrees Sinus rhythm...normal P axis, V-rate 50- 99 Lateral infarct, acute (LAD)...ST >.10mV, V5 V6 I aVL Electronically Signed By: Kenneth Pichardo
[2018-06-14] MEDS: REPAGLINIDE 1 MG TAB PO SCH (17:27)
--- NOTE | 2018-06-14 17:59 | PN ---
Date/Time of Note Date/Time of Note DATE: 06/14/18 TIME: 17:54 Assessment/Plan VTE Prophylaxis Risk score (from [facility] [place])>0 risk: 3 SCD applied (from [facility] [place]): No SCD contraindicated: bilateral LE trauma Pharmacological prophylaxis: LMWH Lines/Catheters IV Catheter Type (from [facility] [place] Urinary Cath still in place: No Assessment/Plan Problems: (1) Presence of aortocoronary bypass graft Status: Acute Comment: Doing well POD#2. Per CT-S ok to transfer to telemetry. (2) Postoperative anemia due to acute blood loss Status: Resolved (3) Atelectasis Status: Acute Comment: Cont. IS 10x/hr and monitor CXR and respiratory status (4) NSTEMI (non-ST elevated myocardial infarction) Status: Acute Comment: Doing well post-op. Defer to cardiology to optimize. (5) Type 2 diabetes mellitus with other specified complication Status: Chronic Comment: Off insulin drip. Initially w/ hyperglycemia. Resume metformin. Safe to do so as renal function has been stable throughout hospital stay and benefit outweighs risk. Cont. empagliflozin. Add repaglinide 1 mg qac. Tomorrow pt. due for his weekly shot of Dulaglutide (Trulicity) 1.5 mg. Will order for pt. to receive his home supply. 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 atorvastatin and fenofibrate. Result Diagram: 06/14/18 0435 06/14/18 0435 Results 24hrs Laboratory Tests Test 06/13/18 19:16 06/13/18 20:26 06/13/18 21:24 06/13/18 22:33 Bedside Glucose 214 199 149 136 Test 06/13/18 23:45 06/14/18 01:33 06/14/18 03:38 06/14/18 04:35 Bedside Glucose 151 117 123 White Blood Count 11.6 H Red Blood Count 3.99 L Hemoglobin 11.1 L Hematocrit 35.3 L Mean Corpuscular Volume 88.5 Mean Corpuscular 27.8 L Hemoglobin Mean Corpuscular 31.4 L Hemoglobin Concent Red Cell Distribution 13.3 Width Platelet Count 146 # Mean Platelet Volume 10.5 H Immature Granulocytes % 0.400 Neutrophils % 76.4 Lymphocytes % 8.7 L Monocytes % 12.6 H Eosinophils % 1.6 Basophils % 0.3 Nucleated Red Blood 0.0 Cells % Immature Granulocytes # 0.050 H Neutrophils # 8.8 H Lymphocytes # 1.0 Monocytes # 1.5 H Eosinophils # 0.2 Basophils # 0.0 Nucleated Red Blood 0.0 Cells # Sodium Level 144 Potassium Level 4.3 Chloride Level 107 Carbon Dioxide Level 30 Anion Gap 7 Blood Urea Nitrogen 19 Creatinine 1.17 Est Glomerular Filtrat > 60 Rate mL/min Glucose Level 111 Calcium Level 9.7 Test 06/14/18 05:34 06/14/18 08:39 06/14/18 11:46 06/14/18 16:53 Bedside Glucose 110 183 235 H 115 Subjective 24 Hr Interval Summary Constitutional: no complaints, improved Respiratory: pain, cough (hurts to cough but feels good to get mucous out of chest) Cardiovascular: chest pain Gastrointestinal: no complaints Genitourinary: no complaints Musculoskeletal: no complaints Neurologic: no complaints Exam/Review of Systems Exam Vitals VS - Last 72 Hours, by Label Date Temp Pulse Resp B/P (MAP) Pulse Ox O2 O2 Flow FiO2 Time Delivery Rate 06/14/18 101 16:00 06/14/18 98 20 108/86 99 15:00 (93) 06/14/18 97 26 104/72 98 14:00 (83) 06/14/18 102 30 100/64 100 13:00 (76) 06/14/18 96 12:00 06/14/18 98.6 91 23 91/71 (78) 95 Nasal 12:00 Cannula 06/14/18 96 23 99/68 (78) 95 Nasal 11:00 Cannula 06/14/18 95 20 112/72 99 Nasal 10:00 (85) Cannula 06/14/18 4.0 09:10 06/14/18 110 16 102/76 97 Nasal 09:00 (85) Cannula 06/14/18 92 08:00 06/14/18 98.4 95 16 97/70 (79) 97 Nasal 08:00 Cannula 06/14/18 103 18 107/74 97 07:00 (85) 06/14/18 107 19 110/76 95 Nasal 06:00 (87) Cannula 06/14/18 93 13 96/64 (75) 96 Nasal 05:00 Cannula 06/14/18 4.0 04:21 06/14/18 94 04:00 06/14/18 98.6 99 18 110/65 95 Nasal 04:00 (80) Cannula 06/14/18 95 33 102/79 96 Nasal 03:00 (87) Cannula 06/14/18 92 22 104/71 98 Nasal 02:00 (82) Cannula 06/14/18 92 15 108/81 97 01:00 (90) 06/14/18 98.9 91 31 93/69 (77) 98 Nasal 00:00 Cannula 06/14/18 91 31 93/69 (77) 98 00:00 06/14/18 98 00:00 06/13/18 95 27 105/68 100 Nasal 23:00 (80) Cannula 06/13/18 4.0 22:36 06/13/18 102 17 105/77 98 Nasal 22:00 (86) Cannula 06/13/18 98.6 99 18 105/77 99 Nasal 21:00 (86) Cannula 06/13/18 99 20 105/69 96 Nasal 20:00 (81) Cannula 06/13/18 100 20:00 06/13/18 99 24 96/68 (77) 91 Nasal 19:00 Cannula 06/13/18 4.0 18:11 06/13/18 97 24 94/68 (77) 91 Nasal 18:00 Cannula 06/13/18 89 21 105/78 97 Nasal 17:00 (87) Cannula 06/13/18 97 16:00 06/13/18 98.4 98 21 114/85 97 Nasal 16:00 (95) Cannula 06/13/18 97 27 110/64 98 Nasal 15:00 (79) Cannula 06/13/18 101 27 107/88 98 Nasal 14:00 (94) Cannula 06/13/18 98.9 99 18 104/82 98 Nasal 13:00 (89) Cannula 06/13/18 101 23 109/75 96 Nasal 12:00 (86) Cannula 06/13/18 102 12:00 06/13/18 112 14 118/78 94 11:30 (91) 06/13/18 102 19 98/80 (86) 95 Nasal 11:00 Cannula 06/13/18 100 18 123/78 97 10:30 (93) 06/13/18 99.0 110 24 109/73 95 Nasal 10:00 (85) Cannula 06/13/18 98.9 116 17 117/82 93 09:30 (94) 06/13/18 116 17 117/82 93 09:30 (94) 06/13/18 111 35 132/79 92 09:15 (96) 06/13/18 104 27 126/84 93 Nasal 09:00 (98) Cannula 06/13/18 98.6 104 27 126/84 93 09:00 (98) 06/13/18 109 20 128/82 93 08:45 (97) 06/13/18 104 23 117/78 96 08:30 (91) 06/13/18 104 23 117/78 96 Nasal 08:30 (91) Cannula 06/13/18 106 21 114/73 95 08:15 (87) 06/13/18 98.7 106 21 114/73 95 Nasal 08:15 (87) Cannula 06/13/18 106 18 123/74 96 Nasal 08:00 (90) Cannula 06/13/18 101 08:00 06/13/18 98.7 106 18 123/74 96 08:00 (90) 06/13/18 106 19 94 07:45 06/13/18 106 19 141/74 95 07:30 (96) 06/13/18 109 20 110/72 95 07:15 (85) 06/13/18 106 20 119/74 95 07:00 (89) 06/13/18 106 17 120/70 95 06:45 (87) 06/13/18 106 26 133/69 96 06:30 (90) 06/13/18 105 22 124/68 95 06:15 (86) 06/13/18 100.6 113 26 111/66 95 06:00 (81) 06/13/18 109 23 133/70 95 05:45 (91) 06/13/18 107 20 120/62 92 05:30 (81) 06/13/18 113 20 119/74 93 05:15 (89) 06/13/18 100.4 115 20 122/68 90 05:00 (86) 06/13/18 117 22 128/69 93 04:45 (88) 06/13/18 111 24 124/67 93 04:30 (86) 06/13/18 112 26 118/68 93 04:15 (85) 06/13/18 100.5 112 20 130/69 92 04:00 (89) 06/13/18 122 04:00 06/13/18 116 26 129/69 91 03:45 (89) 06/13/18 119 17 113/63 92 03:30 (80) 06/13/18 110 20 128/67 93 03:15 (87) 06/13/18 100.5 112 20 130/69 92 03:00 (89) 06/13/18 112 22 124/67 93 02:45 (86) 06/13/18 117 18 121/66 93 02:30 (84) 06/13/18 112 28 114/66 95 02:15 (82) 06/13/18 100.6 112 21 115/65 94 02:00 (82) 06/13/18 109 17 124/66 97 01:45 (85) 06/13/18 108 21 135/67 97 01:30 (89) 06/13/18 108 25 132/68 96 01:15 (89) 06/13/18 99.8 111 24 137/77 96 01:00 (97) 06/13/18 112 23 131/71 96 00:45 (91) 06/13/18 95 6.0 00:35 06/13/18 95 6.0 00:35 06/13/18 110 18 138/69 93 00:30 (92) 06/13/18 109 27 126/66 92 00:15 (86) 06/13/18 105 00:00 06/13/18 99.8 105 18 127/65 92 00:00 (85) 06/12/18 108 24 131/67 93 23:45 (88) 06/12/18 104 22 125/67 93 23:30 (86) 06/12/18 107 21 93 30 23:25 06/12/18 106 23 111/63 94 23:15 (79) 06/12/18 103 14 97 30 23:01 06/12/18 99.8 105 25 118/64 96 23:00 (82) 06/12/18 106 18 117/64 99 22:45 (81) 06/12/18 30 22:30 06/12/18 109 22 110/61 99 22:15 (77) 06/12/18 99.4 108 25 102/58 98 22:00 (73) 06/12/18 40 22:00 06/12/18 110 22 119/66 100 21:45 (83) 06/12/18 106 19 114/62 97 21:30 (79) 06/12/18 105 21 116/62 98 21:15 (80) 06/12/18 106 16 99 60 21:10 06/12/18 99.0 108 21 101/56 94 21:00 (71) 06/12/18 108 29 106/58 97 20:45 (74) 06/12/18 104 24 110/57 95 20:30 (74) 06/12/18 105 26 90/47 (61) 98 20:15 06/12/18 99 60 20:05 06/12/18 60 20:00 06/12/18 106 20:00 06/12/18 98.6 104 20 112/59 100 20:00 (76) 06/12/18 106 18 109/57 99 19:45 (74) 06/12/18 106 18 104/53 97 19:30 (70) 06/12/18 102 20 98 80 19:23 06/12/18 104 22 105/55 96 19:15 (72) 06/12/18 98.7 98 20 111/57 100 19:00 (75) 06/12/18 98.7 100 17 102/57 100 18:45 (72) 06/12/18 98.7 94 19 108/57 100 18:30 (74) 06/12/18 97.7 94 16 118/62 100 18:15 (80) 06/12/18 97.7 91 14 121/62 99 18:00 (81) 06/12/18 92 16 100 100 17:50 06/12/18 97.7 87 17 130/66 98 17:45 (87) 06/12/18 96.6 88 17 127/64 92 17:30 (85) 06/12/18 96.6 88 17 120/61 92 17:15 (80) 06/12/18 98.2 17:00 06/12/18 96.6 88 18 136/68 93 17:00 (90) 06/12/18 84 18 90 100 16:30 06/12/18 96.6 83 16:30 06/12/18 100 16:30 06/12/18 89 16:00 06/12/18 84 12:00 06/12/18 97 08:00 06/12/18 99.2 62 20 115/72 96 Room Air 07:37 (86) 06/12/18 98.4 83 18 104/60 92 04:45 (75) 06/12/18 78 04:00 06/12/18 97.5 83 18 102/55 93 00:31 (71) 06/12/18 81 00:00 06/11/18 98.7 20 89 117/77 94 20:16 (90) 06/11/18 89 20:00 Vital Signs Date Temp Pulse Resp B/P (MAP) Pulse Ox O2 O2 Flow FiO2 Time Delivery Rate 06/14/18 101 16:00 06/14/18 20 108/86 99 15:00 (93) 06/14/18 98.6 Nasal 12:00 Cannula 06/14/18 4.0 09:10 06/12/18 30 23:25 Intake and Output 06/13/18 06/13/18 06/14/18 1515:00 23:00 07:00 IntakeIntake Total 1206.0 ml 277 ml 100 ml OutputOutput Total 1705 ml 415 ml 490 ml BalanceBalance -499.0 ml -138 ml -390 ml Constitutional: alert, oriented, well developed Psych: no complaints, nl mood/affect Respiratory: clear to auscultation, normal air movement Cardiovascular: regular rate and rhythm, nl pulses; No edema, No murmurs/extra sounds, No rub Gastrointestinal: soft, nl liver, spleen, non-tender, bowel sounds; No mass, No rebound or guarding Musculoskeletal: nl extremities to inspection Extremities: normal pulses; No calf tenderness, No clubbing, No edema 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: 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-XII 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, nl mental status, nl speech, nl strength Additional Comments Bedside Glucose - 72 Hours Test 06/11/18 19:46 06/12/18 08:01 06/12/18 16:26 06/12/18 16:45 Bedside 115 126 75 178 Glucose mg/dL (70-220) mg/dL (70-220) mg/dL (70-220) mg/dL (70-220) Test 06/12/18 17:25 06/12/18 17:52 06/12/18 18:47 06/12/18 20:03 Bedside 132 136 146 171 Glucose mg/dL (70-220) mg/dL (70-220) mg/dL (70-220) mg/dL (70-220) Test 06/12/18 20:53 06/12/18 21:43 06/12/18 22:46 06/12/18 23:45 Bedside 182 185 177 147 Glucose mg/dL (70-220) mg/dL (70-220) mg/dL (70-220) mg/dL (70-220) Test 06/13/18 00:49 06/13/18 02:05 06/13/18 02:46 06/13/18 04:12 Bedside 144 140 130 129 Glucose mg/dL (70-220) mg/dL (70-220) mg/dL (70-220) mg/dL (70-220) Test 06/13/18 04:44 06/13/18 05:57 06/13/18 06:48 06/13/18 07:40 Bedside 124 105 119 127 Glucose mg/dL (70-220) mg/dL (70-220) mg/dL (70-220) mg/dL (70-220) Test 06/13/18 09:02 06/13/18 10:19 06/13/18 11:06 06/13/18 12:09 Bedside 151 191 201 221 Glucose mg/dL (70-220) mg/dL (70-220) mg/dL (70-220) mg/dL (70-220) H Test 06/13/18 12:53 06/13/18 13:53 06/13/18 15:07 06/13/18 15:51 Bedside 177 175 136 117 Glucose mg/dL (70-220) mg/dL (70-220) mg/dL (70-220) mg/dL (70-220) Test 06/13/18 17:25 06/13/18 19:16 06/13/18 20:26 06/13/18 21:24 Bedside 117 214 199 149 Glucose mg/dL (70-220) mg/dL (70-220) mg/dL (70-220) mg/dL (70-220) Test 06/13/18 22:33 06/13/18 23:45 06/14/18 01:33 06/14/18 03:38 Bedside 136 151 117 123 Glucose mg/dL (70-220) mg/dL (70-220) mg/dL (70-220) mg/dL (70-220) Test 06/14/18 05:34 06/14/18 08:39 06/14/18 11:46 06/14/18 16:53 Bedside 110 183 235 115 Glucose mg/dL (70-220) mg/dL (70-220) mg/dL (70-220) mg/dL (70-220) H Results Results 24hrs Laboratory Tests Test 06/13/18 19:16 06/13/18 20:26 06/13/18 21:24 06/13/18 22:33 Bedside Glucose 214 199 149 136 Test 06/13/18 23:45 06/14/18 01:33 06/14/18 03:38 06/14/18 04:35 Bedside Glucose 151 117 123 White Blood Count 11.6 H Red Blood Count 3.99 L Hemoglobin 11.1 L Hematocrit 35.3 L Mean Corpuscular Volume 88.5 Mean Corpuscular 27.8 L Hemoglobin Mean Corpuscular 31.4 L Hemoglobin Concent Red Cell Distribution 13.3 Width Platelet Count 146 # Mean Platelet Volume 10.5 H Immature Granulocytes % 0.400 Neutrophils % 76.4 Lymphocytes % 8.7 L Monocytes % 12.6 H Eosinophils % 1.6 Basophils % 0.3 Nucleated Red Blood 0.0 Cells % Immature Granulocytes # 0.050 H Neutrophils # 8.8 H Lymphocytes # 1.0 Monocytes # 1.5 H Eosinophils # 0.2 Basophils # 0.0 Nucleated Red Blood 0.0 Cells # Sodium Level 144 Potassium Level 4.3 Chloride Level 107 Carbon Dioxide Level 30 Anion Gap 7 Blood Urea Nitrogen 19 Creatinine 1.17 Est Glomerular Filtrat > 60 Rate mL/min Glucose Level 111 Calcium Level 9.7 Test 06/14/18 05:34 06/14/18 08:39 06/14/18 11:46 06/14/18 16:53 Bedside Glucose 110 183 235 H 115 Medications Medication Current Medications Potassium Chloride 40 meq/ Calcium Chloride 1 gm/Dextrose/ Sodium Chloride 1,030 ml @ 60 mls/hr [id number] IV Last administered on 06/12/18at 18:53; Admin Dose 60 MLS/HR; Start 06/12/18 at 18:30 Hydromorphone HCl (Dilaudid) 0.2 mg Q15M PRN IV PAIN LEVEL 1-5; Start 06/12/18 at 16:30 Hydromorphone HCl (Dilaudid) 0.4 mg Q15M PRN IV PAIN LEVEL 6-10; Start 06/12/18 at 16:30 Oxycodone/ Acetaminophen (Percocet (5/ 325)) 1 tab Q3H PRN PO PAIN LEVEL 1-5 Last administered on 06/14/18at 09:15; Admin Dose 1 TAB; Start 06/12/18 at 16:30 Oxycodone/ Acetaminophen (Percocet (5/ 325)) 2 tab Q3H PRN PO PAIN LEVEL 6-10 Last administered on 06/13/18at 08:32; Admin Dose 2 TAB; Start 06/12/18 at 16:30 Ondansetron HCl (Zofran Inj) 4 mg Q6H PRN IV NAUSEA AND/OR VOMITING Last administered on 06/13/18at 01:03; Admin Dose 4 MG; Start 06/12/18 at 16:30 Famotidine (Pepcid Iv) 20 mg BID@08,20 IV Last administered on 06/14/18 08:32; Admin Dose 20 MG; Start 06/12/18 at 20:00 Famotidine (Pepcid) 20 mg BID PO ; Start 06/12/18 at 21:00; Status Hold Acetaminophen (Tylenol Tab) 650 mg Q3H PRN PO ELEVATED TEMPERATURE; Start 06/12/18 at 16:30 Potassium Chloride 50 ml @ 50 mls/hr SEE DIRECTION PRN IVPB K+ LEVEL Last administered on 06/12/18at 18:47; Admin Dose 50 MLS/HR; Start 06/12/18 at 16:30 Magnesium Sulfate/ Dextrose 100 ml @ 100 mls/hr PRN PRN IVPB PENDING LAB VALUE; Start 06/12/18 at 16:30 Nitroglycerin/ Dextrose 250 ml @ 1.5 mls/hr PER PROTOCOL IV Last administered on 06/12/18at 18:07; Admin Dose 15 MLS/HR; Start 06/12/18 at 16:30 Dopamine HCl/ Dextrose 250 ml @ 5.97 mls/hr PER PROTOCOL IV ; Start 06/12/18 at 16:30 Enoxaparin Sodium (Lovenox) 40 mg DAILY SC Last administered on 06/14/18at 08:30; Admin Dose 40 MG; Start 06/13/18 at 09:00 Atorvastatin Calcium (Lipitor) 80 mg HS PO Last administered on 06/13/18at 20:38; Admin Dose 80 MG; Start 06/12/18 at 21:00 Albumin Human 250 ml @ 500 mls/hr PRN PRN IV CVP< 8, OR SBP<90; Start 06/12/18 at 18:30 Ibuprofen (Motrin) 600 mg TID PO Last administered on 06/14/18at 13:48; Admin Dose 600 MG; Start 06/13/18 at 10:00 Empaglifozin (Jardiance) 10 mg DAILY@08 PO Last administered on 06/14/18at 08:33; Admin Dose 10 MG; Start 06/14/18 at 08:00 Miscellaneous Information 1 ea NOTE XX ; Start 06/13/18 at 18:30 Glucose (Glutose) 15 gm Q15M PRN PO DECREASED GLUCOSE; Start 06/13/18 at 18:30 Glucose (Glutose) 22.5 gm Q15M PRN PO DECREASED GLUCOSE; Start 06/13/18 at 18:30 Dextrose (D50w Syringe) 25 ml Q15M PRN IV DECREASED GLUCOSE; Start 06/13/18 at 18:30 Dextrose (D50w Syringe) 50 ml Q15M PRN IV DECREASED GLUCOSE; Start 06/13/18 at 18:30 Glucagon (Glucagen) 1 mg Q15M PRN IM DECREASED GLUCOSE; Start 06/13/18 at 18:30 Glucose (Glutose) 15 gm Q15M PRN BUCCAL DECREASED GLUCOSE; Start 06/13/18 at 18:30 Metoprolol Tartrate (Lopressor) 12.5 mg BID PO Last administered on 06/14/18at 09:16; Admin Dose 12.5 MG; Start 06/14/18 at 09:00 Aspirin (Aspirin) 81 mg DAILY PO Last administered on 06/14/18at 09:16; Admin Dose 81 MG; Start 06/14/18 at 09:00 Clopidogrel Bisulfate (plaVIX) 75 mg DAILY PO Last administered on 06/14/18at 09:16; Admin Dose 75 MG; Start 06/14/18 at 09:00 Insulin Aspart (Novolog Insulin Pen) NOVOLOG *MILD* ALGORITHM WITH MEALS BEDTIME SC Last administered on 06/14/18at 11:58; Admin Dose 3 UNIT; Start 06/14/18 at 11:30 Metformin HCl (Glucophage Xr) 1,000 mg BID PO ; Start 06/14/18 at 21:00 Repaglinide (Prandin) 1 mg AC MEALS PO Last administered on 06/14/18at 17:27; Admin Dose 1 MG; Start 06/14/18 at 17:05 Docusate Sodium (Colace) 100 mg BID PO Last administered on 06/14/18at 15:17; Admin Dose 100 MG; Start 06/14/18 at 14:30 Polyethylene Glycol (Miralax) 17 gm DAILY PRN PO CONSTIPATION Last administered on 06/14/18at 15:19; Admin Dose 17 GM; Start 06/14/18 at 14:30 MAR CORTEZ MD June 14, 2018 17:59
[2018-06-14] MEDS: metFORMIN (XR) 500 MG TAB PO SCH (20:47)
[2018-06-14] MEDS: ATORVASTATIN 80 MG TAB PO SCH (20:47)
[2018-06-15] VITALS (19 sets, daily range): BP systolic 97–120; BP diastolic 56–82; PULSE 81–110; RESP 12–27
[2018-06-15] MEDS: INSULIN ASPART [NOVOLOG] 3 ML PEN SC SCH ×4 (07:35→21:00)
[2018-06-15] MEDS: REPAGLINIDE 1 MG TAB PO SCH ×3 (07:56→17:40)
[2018-06-15] MEDS: DOCUSATE SODIUM 100 MG CAP PO SCH ×2 (09:01→22:16)
[2018-06-15] MEDS: ASPIRIN 81 MG TAB PO SCH (09:01)
[2018-06-15] MEDS: FAMOTIDINE 20 MG INJ IV SCH ×2 (09:01→22:17)
[2018-06-15] MEDS: CLOPIDOGREL 75 MG TAB PO SCH (09:02)
[2018-06-15] MEDS: metFORMIN (XR) 500 MG TAB PO SCH ×2 (09:07→22:25)
[2018-06-15] MEDS: EMPAGLIFLOZIN 10 MG TABLET PO SCH (09:07)
[2018-06-15] MEDS: METOPROLOL 25 MG TAB PO SCH ×2 (09:08→22:26)
[2018-06-15] MEDS: IBUPROFEN 600 MG TAB PO SCH ×2 (09:14→13:04)
[2018-06-15] MEDS: ENOXAPARIN 40 MG/0.4 ML SYG SC SCH (09:25)
--- NOTE | 2018-06-15 10:45 | PN ---
Date/Time of Note Date/Time of Note DATE: 06/15/18 TIME: 10:38 Assessment/Plan Lines/Catheters IV Catheter Type (from Nrs): Saline Lock Lai in Place (from Nrs): No Assessment/Plan Assessment/Plan feels well. sitting in chair. NSR. labs ok. awaiting tele bed. had BM. home next 1-2 days Exam/Review of Systems Vital Signs Vitals Vital Signs Date Temp Pulse Resp B/P (MAP) Pulse Ox O2 O2 Flow FiO2 Time Delivery Rate 06/15/18 96 21 107/79 94 Nasal 2.0 10:00 (88) Cannula 06/15/18 99.0 08:00 06/12/18 30 23:25 Intake and Output 06/14/18 06/14/18 06/15/18 1515:00 23:00 07:00 IntakeIntake Total 690 ml 300 ml 150 ml OutputOutput Total 300 ml 200 ml 300 ml BalanceBalance 390 ml 100 ml -150 ml Results Result Diagram: 06/15/18 0418 06/15/18 0418 AG FUNG MD June 15, 2018 10:45
[2018-06-15] MEDS: OXYCODONE/ACETAMINOPHEN (5/325) TAB PO PRN (13:47)
--- NOTE | 2018-06-15 13:49 | PN ---
Date/Time of Note Date/Time of Note DATE: 06/15/18 TIME: 13:41 Assessment/Plan VTE Prophylaxis Risk score (from [facility])>0 risk: 6 SCD applied (from [facility]): No SCD contraindicated: low risk/ambulating Pharmacological prophylaxis: LMWH Lines/Catheters IV Catheter Type (from [facility]): Saline Lock Urinary Cath still in place: No Assessment/Plan Problems: (1) Presence of aortocoronary bypass graft Status: Acute Comment: Doing well. Cont. PT and post-operative management. CT-S following and managing. (2) Atelectasis Status: Acute Comment: Cont. PT and ISS. (3) NSTEMI (non-ST elevated myocardial infarction) Status: Acute Comment: Doing well. Cardiology optimizing. Cont. metoprolol and ASA and clopidogrel. (4) Type 2 diabetes mellitus with other specified complication Status: Chronic Comment: BG in good control. Cont. metformin, empagliflozin. To resume dulaglutide today. Qualifiers: Diabetes mellitus mcc insulin use: without terminal make up operator use Qualified Codes: E11.69 - Type 2 diabetes mellitus with other specified complication (5) Mixed hyperlipidemia Status: Chronic Comment: Cont. atorvastatin 80 mg/d Result Diagram: 06/15/18 0418 06/15/18 0418 Results 24hrs Laboratory Tests Test 06/14/18 16:53 06/14/18 20:45 06/15/18 04:18 06/15/18 07:55 Bedside Glucose 115 140 94 White Blood Count 9.3 Red Blood Count 3.80 L Hemoglobin 10.6 L Hematocrit 33.5 L Mean Corpuscular Volume 88.2 Mean Corpuscular 27.9 L Hemoglobin Mean Corpuscular 31.6 L Hemoglobin Concent Red Cell Distribution 13.0 Width Platelet Count 191 # Mean Platelet Volume 10.2 Immature Granulocytes % 0.600 H Neutrophils % 70.2 Lymphocytes % 13.4 L Monocytes % 12.5 H Eosinophils % 2.9 Basophils % 0.4 Nucleated Red Blood 0.0 Cells % Immature Granulocytes # 0.060 H Neutrophils # 6.5 Lymphocytes # 1.2 Monocytes # 1.2 H Eosinophils # 0.3 Basophils # 0.0 Nucleated Red Blood 0.0 Cells # Sodium Level 144 Potassium Level 4.2 Chloride Level 106 Carbon Dioxide Level 28 Anion Gap 10 Blood Urea Nitrogen 24 H Creatinine 1.01 Est Glomerular Filtrat > 60 Rate mL/min Glucose Level 86 Calcium Level 9.4 Test 06/15/18 09:07 06/15/18 11:31 Bedside Glucose 129 157 Subjective 24 Hr Interval Summary Constitutional: no complaints, improved (but actually feels a little more fatigued than yesterday. ) Respiratory: cough (helps clear out mucous but feels may be making him more tir ed) Cardiovascular: no complaints Gastrointestinal: no complaints Genitourinary: no complaints Musculoskeletal: no complaints Neurologic: no complaints Exam/Review of Systems Exam Vitals VS - Last 72 Hours, by Label Date Temp Pulse Resp B/P (MAP) Pulse Ox O2 O2 Flow FiO2 Time Delivery Rate 06/15/18 110 27 112/82 95 Room Air 13:00 (92) 06/15/18 99.8 104 24 113/72 94 Room Air 12:00 (86) 06/15/18 102 12:00 06/15/18 105 20 116/74 95 Room Air 11:00 (88) 06/15/18 96 21 107/79 94 Nasal 2.0 10:00 (88) Cannula 06/15/18 99 19 119/72 97 Nasal 2.0 09:00 (88) Cannula 06/15/18 Nasal 2.0 08:00 Cannula 06/15/18 100 08:00 06/15/18 99.0 98 12 120/74 97 Nasal 2.0 08:00 (89) Cannula 06/15/18 93 17 100/71 97 07:00 (81) 06/15/18 89 27 98/75 (83) 96 06:00 06/15/18 4.0 05:11 06/15/18 98.8 85 15 106/74 98 05:00 (85) 06/15/18 84 20 104/56 98 04:00 (72) 06/15/18 81 04:00 06/15/18 85 23 97/69 (78) 100 03:00 06/15/18 85 21 97/76 (83) 99 02:00 06/15/18 90 21 112/78 99 01:00 (89) 06/15/18 98.9 89 24 108/76 99 00:00 (87) 06/15/18 87 00:00 06/14/18 93 21 97/66 (76) 98 23:00 06/14/18 92 22 102/77 100 22:00 (85) 06/14/18 92 24 94/59 (71) 98 21:00 06/14/18 4.0 20:10 06/14/18 100 19 103/71 88 20:00 (82) 06/14/18 100 20:00 06/14/18 103 20:00 06/14/18 98.8 102 18 106/64 89 19:00 (78) 06/14/18 99 23 116/84 18:00 (95) 06/14/18 91 14 103/62 100 17:00 (76) 06/14/18 97.9 94 27 110/75 100 16:00 (87) 06/14/18 101 16:00 06/14/18 98 20 108/86 99 15:00 (93) 06/14/18 97 26 104/72 98 14:00 (83) 06/14/18 102 30 100/64 100 13:00 (76) 06/14/18 96 12:00 06/14/18 98.6 91 23 91/71 (78) 95 Nasal 12:00 Cannula 06/14/18 96 23 99/68 (78) 95 Nasal 11:00 Cannula 06/14/18 95 20 112/72 99 Nasal 10:00 (85) Cannula 06/14/18 4.0 09:10 06/14/18 110 16 102/76 97 Nasal 09:00 (85) Cannula 06/14/18 92 08:00 06/14/18 98.4 95 16 97/70 (79) 97 Nasal 08:00 Cannula 06/14/18 103 18 107/74 97 07:00 (85) 06/14/18 107 19 110/76 95 Nasal 06:00 (87) Cannula 06/14/18 93 13 96/64 (75) 96 Nasal 05:00 Cannula 06/14/18 4.0 04:21 06/14/18 94 04:00 06/14/18 98.6 99 18 110/65 95 Nasal 04:00 (80) Cannula 06/14/18 95 33 102/79 96 Nasal 03:00 (87) Cannula 06/14/18 92 22 104/71 98 Nasal 02:00 (82) Cannula 06/14/18 92 15 108/81 97 01:00 (90) 06/14/18 98.9 91 31 93/69 (77) 98 Nasal 00:00 Cannula 06/14/18 91 31 93/69 (77) 98 00:00 06/14/18 98 00:00 06/13/18 95 27 105/68 100 Nasal 23:00 (80) Cannula 06/13/18 4.0 22:36 06/13/18 102 17 105/77 98 Nasal 22:00 (86) Cannula 06/13/18 98.6 99 18 105/77 99 Nasal 21:00 (86) Cannula 06/13/18 99 20 105/69 96 Nasal 20:00 (81) Cannula 06/13/18 100 20:00 06/13/18 99 24 96/68 (77) 91 Nasal 19:00 Cannula 06/13/18 4.0 18:11 06/13/18 97 24 94/68 (77) 91 Nasal 18:00 Cannula 06/13/18 89 21 105/78 97 Nasal 17:00 (87) Cannula 06/13/18 97 16:00 06/13/18 98.4 98 21 114/85 97 Nasal 16:00 (95) Cannula 06/13/18 97 27 110/64 98 Nasal 15:00 (79) Cannula 06/13/18 101 27 107/88 98 Nasal 14:00 (94) Cannula 06/13/18 98.9 99 18 104/82 98 Nasal 13:00 (89) Cannula 06/13/18 101 23 109/75 96 Nasal 12:00 (86) Cannula 06/13/18 102 12:00 06/13/18 112 14 118/78 94 11:30 (91) 06/13/18 102 19 98/80 (86) 95 Nasal 11:00 Cannula 06/13/18 100 18 123/78 97 10:30 (93) 06/13/18 99.0 110 24 109/73 95 Nasal 10:00 (85) Cannula 06/13/18 98.9 116 17 117/82 93 09:30 (94) 06/13/18 116 17 117/82 93 09:30 (94) 06/13/18 111 35 132/79 92 09:15 (96) 06/13/18 104 27 126/84 93 Nasal 09:00 (98) Cannula 06/13/18 98.6 104 27 126/84 93 09:00 (98) 06/13/18 109 20 128/82 93 08:45 (97) 06/13/18 104 23 117/78 96 08:30 (91) 06/13/18 104 23 117/78 96 Nasal 08:30 (91) Cannula 06/13/18 106 21 114/73 95 08:15 (87) 06/13/18 98.7 106 21 114/73 95 Nasal 08:15 (87) Cannula 06/13/18 106 18 123/74 96 Nasal 08:00 (90) Cannula 06/13/18 101 08:00 06/13/18 98.7 106 18 123/74 96 08:00 (90) 06/13/18 106 19 94 07:45 06/13/18 106 19 141/74 95 07:30 (96) 06/13/18 109 20 110/72 95 07:15 (85) 06/13/18 106 20 119/74 95 07:00 (89) 06/13/18 106 17 120/70 95 06:45 (87) 06/13/18 106 26 133/69 96 06:30 (90) 06/13/18 105 22 124/68 95 06:15 (86) 06/13/18 100.6 113 26 111/66 95 06:00 (81) 06/13/18 109 23 133/70 95 05:45 (91) 06/13/18 107 20 120/62 92 05:30 (81) 06/13/18 113 20 119/74 93 05:15 (89) 06/13/18 100.4 115 20 122/68 90 05:00 (86) 06/13/18 117 22 128/69 93 04:45 (88) 06/13/18 111 24 124/67 93 04:30 (86) 06/13/18 112 26 118/68 93 04:15 (85) 06/13/18 100.5 112 20 130/69 92 04:00 (89) 06/13/18 122 04:00 06/13/18 116 26 129/69 91 03:45 (89) 06/13/18 119 17 113/63 92 03:30 (80) 06/13/18 110 20 128/67 93 03:15 (87) 06/13/18 100.5 112 20 130/69 92 03:00 (89) 06/13/18 112 22 124/67 93 02:45 (86) 06/13/18 117 18 121/66 93 02:30 (84) 06/13/18 112 28 114/66 95 02:15 (82) 06/13/18 100.6 112 21 115/65 94 02:00 (82) 06/13/18 109 17 124/66 97 01:45 (85) 06/13/18 108 21 135/67 97 01:30 (89) 06/13/18 108 25 132/68 96 01:15 (89) 06/13/18 99.8 111 24 137/77 96 01:00 (97) 06/13/18 112 23 131/71 96 00:45 (91) 06/13/18 95 6.0 00:35 06/13/18 95 6.0 00:35 06/13/18 110 18 138/69 93 00:30 (92) 06/13/18 109 27 126/66 92 00:15 (86) 06/13/18 105 00:00 06/13/18 99.8 105 18 127/65 92 00:00 (85) 06/12/18 108 24 131/67 93 23:45 (88) 06/12/18 104 22 125/67 93 23:30 (86) 06/12/18 107 21 93 30 23:25 06/12/18 106 23 111/63 94 23:15 (79) 06/12/18 103 14 97 30 23:01 06/12/18 99.8 105 25 118/64 96 23:00 (82) 06/12/18 106 18 117/64 99 22:45 (81) 06/12/18 30 22:30 06/12/18 109 22 110/61 99 22:15 (77) 06/12/18 99.4 108 25 102/58 98 22:00 (73) 06/12/18 40 22:00 06/12/18 110 22 119/66 100 21:45 (83) 06/12/18 106 19 114/62 97 21:30 (79) 06/12/18 105 21 116/62 98 21:15 (80) 06/12/18 106 16 99 60 21:10 06/12/18 99.0 108 21 101/56 94 21:00 (71) 06/12/18 108 29 106/58 97 20:45 (74) 06/12/18 104 24 110/57 95 20:30 (74) 06/12/18 105 26 90/47 (61) 98 20:15 06/12/18 99 60 20:05 06/12/18 60 20:00 06/12/18 106 20:00 06/12/18 98.6 104 20 112/59 100 20:00 (76) 06/12/18 106 18 109/57 99 19:45 (74) 06/12/18 106 18 104/53 97 19:30 (70) 06/12/18 102 20 98 80 19:23 06/12/18 104 22 105/55 96 19:15 (72) 06/12/18 98.7 98 20 111/57 100 19:00 (75) 06/12/18 98.7 100 17 102/57 100 18:45 (72) 06/12/18 98.7 94 19 108/57 100 18:30 (74) 06/12/18 97.7 94 16 118/62 100 18:15 (80) 06/12/18 97.7 91 14 121/62 99 18:00 (81) 06/12/18 92 16 100 100 17:50 06/12/18 97.7 87 17 130/66 98 17:45 (87) 06/12/18 96.6 88 17 127/64 92 17:30 (85) 06/12/18 96.6 88 17 120/61 92 17:15 (80) 06/12/18 98.2 17:00 06/12/18 96.6 88 18 136/68 93 17:00 (90) 06/12/18 84 18 90 100 16:30 06/12/18 96.6 83 16:30 06/12/18 100 16:30 06/12/18 89 16:00 Vital Signs Date Temp Pulse Resp B/P (MAP) Pulse Ox O2 O2 Flow FiO2 Time Delivery Rate 06/15/18 110 27 112/82 95 Room Air 13:00 (92) 06/15/18 99.8 12:00 06/15/18 2.0 10:00 06/12/18 30 23:25 Intake and Output 06/14/18 06/14/18 06/15/18 1515:00 23:00 07:00 IntakeIntake Total 690 ml 300 ml 150 ml OutputOutput Total 300 ml 200 ml 300 ml BalanceBalance 390 ml 100 ml -150 ml Constitutional: alert, oriented, well developed Respiratory: clear to auscultation, normal air movement Cardiovascular: regular rate and rhythm, nl pulses; No edema, No murmurs/extra sounds, No rub Gastrointestinal: soft, nl liver, spleen, non-tender, bowel sounds, mass, rebound or guarding Musculoskeletal: nl extremities to inspection Extremities: normal pulses; No cyanosis, No clubbing, No edema 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: BRICK HANDLER II-XII intact, nl mental status, nl speech, nl strength Additional Comments Bedside Glucose - 72 Hours Test 06/12/18 16:26 06/12/18 16:45 06/12/18 17:25 06/12/18 17:52 Bedside 75 178 132 136 Glucose mg/dL (70-220) mg/dL (70-220) mg/dL (70-220) mg/dL (70-220) Test 06/12/18 18:47 06/12/18 20:03 06/12/18 20:53 06/12/18 21:43 Bedside 146 171 182 185 Glucose mg/dL (70-220) mg/dL (70-220) mg/dL (70-220) mg/dL (70-220) Test 06/12/18 22:46 06/12/18 23:45 06/13/18 00:49 06/13/18 02:05 Bedside 177 147 144 140 Glucose mg/dL (70-220) mg/dL (70-220) mg/dL (70-220) mg/dL (70-220) Test 06/13/18 02:46 06/13/18 04:12 06/13/18 04:44 06/13/18 05:57 Bedside 130 129 124 105 Glucose mg/dL (70-220) mg/dL (70-220) mg/dL (70-220) mg/dL (70-220) Test 06/13/18 06:48 06/13/18 07:40 06/13/18 09:02 06/13/18 10:19 Bedside 119 127 151 191 Glucose mg/dL (70-220) mg/dL (70-220) mg/dL (70-220) mg/dL (70-220) Test 06/13/18 11:06 06/13/18 12:09 06/13/18 12:53 06/13/18 13:53 Bedside 201 221 177 175 Glucose mg/dL (70-220) mg/dL (70-220) mg/dL (70-220) mg/dL (70-220) H Test 06/13/18 15:07 06/13/18 15:51 06/13/18 17:25 06/13/18 19:16 Bedside 136 117 117 214 Glucose mg/dL (70-220) mg/dL (70-220) mg/dL (70-220) mg/dL (70-220) Test 06/13/18 20:26 06/13/18 21:24 06/13/18 22:33 06/13/18 23:45 Bedside 199 149 136 151 Glucose mg/dL (70-220) mg/dL (70-220) mg/dL (70-220) mg/dL (70-220) Test 06/14/18 01:33 06/14/18 03:38 06/14/18 05:34 06/14/18 08:39 Bedside 117 123 110 183 Glucose mg/dL (70-220) mg/dL (70-220) mg/dL (70-220) mg/dL (70-220) Test 06/14/18 11:46 06/14/18 16:53 06/14/18 20:45 06/15/18 07:55 Bedside 235 115 140 94 Glucose mg/dL (70-220) mg/dL (70-220) mg/dL (70-220) mg/dL (70-220) H Test 06/15/18 09:07 06/15/18 11:31 Bedside 129 157 Glucose mg/dL (70-220) mg/dL (70-220) Results Results 24hrs Laboratory Tests Test 06/14/18 16:53 06/14/18 20:45 06/15/18 04:18 06/15/18 07:55 Bedside Glucose 115 140 94 White Blood Count 9.3 Red Blood Count 3.80 L Hemoglobin 10.6 L Hematocrit 33.5 L Mean Corpuscular Volume 88.2 Mean Corpuscular 27.9 L Hemoglobin Mean Corpuscular 31.6 L Hemoglobin Concent Red Cell Distribution 13.0 Width Platelet Count 191 # Mean Platelet Volume 10.2 Immature Granulocytes % 0.600 H Neutrophils % 70.2 Lymphocytes % 13.4 L Monocytes % 12.5 H Eosinophils % 2.9 Basophils % 0.4 Nucleated Red Blood 0.0 Cells % Immature Granulocytes # 0.060 H Neutrophils # 6.5 Lymphocytes # 1.2 Monocytes # 1.2 H Eosinophils # 0.3 Basophils # 0.0 Nucleated Red Blood 0.0 Cells # Sodium Level 144 Potassium Level 4.2 Chloride Level 106 Carbon Dioxide Level 28 Anion Gap 10 Blood Urea Nitrogen 24 H Creatinine 1.01 Est Glomerular Filtrat > 60 Rate mL/min Glucose Level 86 Calcium Level 9.4 Test 06/15/18 09:07 06/15/18 11:31 Bedside Glucose 129 157 Medications Medication Current Medications Hydromorphone HCl (Dilaudid) 0.2 mg Q15M PRN IV PAIN LEVEL 1-5; Start 06/12/18 at 16:30 Hydromorphone HCl (Dilaudid) 0.4 mg Q15M PRN IV PAIN LEVEL 6-10; Start 06/12/18 at 16:30 Oxycodone/ Acetaminophen (Percocet (5/ 325)) 1 tab Q3H PRN PO PAIN LEVEL 1-5 Last administered on 06/14/18at 09:15; Admin Dose 1 TAB; Start 06/12/18 at 16:30 Oxycodone/ Acetaminophen (Percocet (5/ 325)) 2 tab Q3H PRN PO PAIN LEVEL 6-10 Last administered on 06/13/18at 08:32; Admin Dose 2 TAB; Start 06/12/18 at 16:30 Ondansetron HCl (Zofran Inj) 4 mg Q6H PRN IV NAUSEA AND/OR VOMITING Last administered on 06/13/18at 01:03; Admin Dose 4 MG; Start 06/12/18 at 16:30 Famotidine (Pepcid Iv) 20 mg BID@08,20 IV Last administered on 06/15/18at 09:01; Admin Dose 20 MG; Start 06/12/18 at 20:00 Famotidine (Pepcid) 20 mg BID PO ; Start 06/12/18 at 21:00; Status Hold Acetaminophen (Tylenol Tab) 650 mg Q3H PRN PO ELEVATED TEMPERATURE; Start 06/12/18 at 16:30 Potassium Chloride 50 ml @ 50 mls/hr SEE DIRECTION PRN IVPB K+ LEVEL Last administered on 06/12/18at 18:47; Admin Dose 50 MLS/HR; Start 06/12/18 at 16:30 Magnesium Sulfate/ Dextrose 100 ml @ 100 mls/hr PRN PRN IVPB PENDING LAB VALUE; Start 06/12/18 at 16:30 Nitroglycerin/ Dextrose 250 ml @ 1.5 mls/hr PER PROTOCOL IV Last administered on 06/12/18at 18:07; Admin Dose 15 MLS/HR; Start 06/12/18 at 16:30 Dopamine HCl/ Dextrose 250 ml @ 5.97 mls/hr PER PROTOCOL IV ; Start 06/12/18 at 16:30 Enoxaparin Sodium (Lovenox) 40 mg DAILY SC Last administered on 06/15/18at 09:25; Admin Dose 40 MG; Start 06/13/18 at 09:00 Atorvastatin Calcium (Lipitor) 80 mg HS PO Last administered on 06/14/18at 20:47; Admin Dose 80 MG; Start 06/12/18 at 21:00 Albumin Human 250 ml @ 500 mls/hr PRN PRN IV CVP< 8, OR SBP<90; Start 06/12/18 at 18:30 Ibuprofen (Motrin) 600 mg TID PO Last administered on 06/15/18at 13:04; Admin Dose 600 MG; Start 06/13/18 at 10:00 Empaglifozin (Jardiance) 10 mg DAILY@08 PO Last administered on 06/15/18at 09:07; Admin Dose 10 MG; Start 06/14/18 at 08:00 Miscellaneous Information 1 ea NOTE XX ; Start 06/13/18 at 18:30 Glucose (Glutose) 15 gm Q15M PRN PO DECREASED GLUCOSE; Start 06/13/18 at 18:30 Glucose (Glutose) 22.5 gm Q15M PRN PO DECREASED GLUCOSE; Start 06/13/18 at 18:30 Dextrose (D50w Syringe) 25 ml Q15M PRN IV DECREASED GLUCOSE; Start 06/13/18 at 18:30 Dextrose (D50w Syringe) 50 ml Q15M PRN IV DECREASED GLUCOSE; Start 06/13/18 at 18:30 Glucagon (Glucagen) 1 mg Q15M PRN IM DECREASED GLUCOSE; Start 06/13/18 at 18:30 Glucose (Glutose) 15 gm Q15M PRN BUCCAL DECREASED GLUCOSE; Start 06/13/18 at 18:30 Metoprolol Tartrate (Lopressor) 12.5 mg BID PO Last administered on 06/15/18 09:08; Admin Dose 12.5 MG; Start 06/14/18 at 09:00 Aspirin (Aspirin) 81 mg DAILY PO Last administered on 06/15/18 09:01; Admin Dose 81 MG; Start 06/14/18 at 09:00 Clopidogrel Bisulfate (plaVIX) 75 mg DAILY PO Last administered on 06/15/18 09:02; Admin Dose 75 MG; Start 06/14/18 at 09:00 Insulin Aspart (Novolog Insulin Pen) NOVOLOG *MILD* ALGORITHM WITH MEALS BEDTIME SC Last administered on 06/15/18 11:46; Admin Dose 1 UNIT; Start 06/14/18 at 11:30 Metformin HCl (Glucophage Xr) 1,000 mg BID PO Last administered on 06/15/18 09:07; Admin Dose 1,000 MG; Start 06/14/18 at 21:00 Repaglinide (Prandin) 1 mg AC MEALS PO Last administered on 06/15/18 11:32; Admin Dose 1 MG; Start 06/14/18 at 17:05 Docusate Sodium (Colace) 100 mg BID PO Last administered on 06/15/18 09:01; Admin Dose 100 MG; Start 06/14/18 at 14:30 Polyethylene Glycol (Miralax) 17 gm DAILY PRN PO CONSTIPATION Last administered on 06/14/18 15:19; Admin Dose 17 GM; Start 06/14/18 at 14:30 Miscellaneous Information (* Miscellaneous Pharmacy Order) 1 ea ONCE SC ; Start 06/15/18 at 12:00; Status MAR AYOUB MD June 15, 2018 13:49
--- NOTE | 2018-06-15 14:22 | CONS ---
Assessment/Plan Assessment/Plan Hospital Course (Demo Recall) Fevers likely due to pericarditis: mild fevers and significant pericardial rub on exam 06/13 consistent with pericarditis. Now rub resolved and fevers resolved after NSAIDs Acute diastolic CHF: mild CHF post op now resolved after diuresis NSTEMI: Cath with 3 vessel CAD in a diabetic. s/p CABG CAD s/p CABG: STERN-LAD, SVG-PDA, SVG-OM 06/12/2018. Acute respiratory failure: extubated 06/12 DM HL -decrease to ibuprofen 400mg TID, then 200mg TID Monday, then d/c Monday -already on pepcid for GI prophylaxis -ASA 81mg -plavix due to NSTEMI -lipitor 80mg -metoprolol 12.5mg BID Consultation Date/Type/Reason Admit Date/Time Jun 12, 2018 at 16:00 Initial Consult Date 06/11/18 Type of Consult Cardiology Requesting Provider: SRIKANTH HERNANDEZ MD Date/Time of Note DATE: 06/15/18 TIME: 14:20 24 HR Interval Summary Free Text/Dictation Transferred to tele. Doing well. Working with PT. Got tired today Exam/Review of Systems Vital Signs Vitals Vital Signs Date Temp Pulse Resp B/P (MAP) Pulse Ox O2 O2 Flow FiO2 Time Delivery Rate 06/15/18 Nasal 2.0 13:52 Cannula 06/15/18 100 13:41 06/15/18 27 112/82 95 13:00 (92) 06/15/18 99.8 12:00 06/12/18 30 23:25 Intake and Output 06/14/18 06/14/18 06/15/18 1515:00 23:00 07:00 IntakeIntake Total 690 ml 300 ml 150 ml OutputOutput Total 300 ml 200 ml 300 ml BalanceBalance 390 ml 100 ml -150 ml Exam Constitutional: alert, oriented Psych: no complaints, nl mood/affect Head: normocephalic, atraumatic Neck: supple; No jvd Respiratory: diminished breath sounds; No clear to auscultation Cardiovascular: regular rate and rhythm; No edema Gastrointestinal: soft, non-tender; No distended 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: nl mental status, nl speech Labs Result Diagram: 06/15/18 0418 06/15/18 0418 Results 24hrs Laboratory Tests Test 06/14/18 16:53 06/14/18 20:45 06/15/18 04:18 06/15/18 07:55 Bedside Glucose 115 140 94 White Blood Count 9.3 Red Blood Count 3.80 L Hemoglobin 10.6 L Hematocrit 33.5 L Mean Corpuscular Volume 88.2 Mean Corpuscular 27.9 L Hemoglobin Mean Corpuscular 31.6 L Hemoglobin Concent Red Cell Distribution 13.0 Width Platelet Count 191 # Mean Platelet Volume 10.2 Immature Granulocytes % 0.600 H Neutrophils % 70.2 Lymphocytes % 13.4 L Monocytes % 12.5 H Eosinophils % 2.9 Basophils % 0.4 Nucleated Red Blood 0.0 Cells % Immature Granulocytes # 0.060 H Neutrophils # 6.5 Lymphocytes # 1.2 Monocytes # 1.2 H Eosinophils # 0.3 Basophils # 0.0 Nucleated Red Blood 0.0 Cells # Sodium Level 144 Potassium Level 4.2 Chloride Level 106 Carbon Dioxide Level 28 Anion Gap 10 Blood Urea Nitrogen 24 H Creatinine 1.01 Est Glomerular Filtrat > 60 Rate mL/min Glucose Level 86 Calcium Level 9.4 Test 06/15/18 09:07 06/15/18 11:31 Bedside Glucose 129 157 Medications Medications Current Medications Hydromorphone HCl (Dilaudid) 0.2 mg Q15M PRN IV PAIN LEVEL 1-5; Start 06/12/18 at 16:30 Hydromorphone HCl (Dilaudid) 0.4 mg Q15M PRN IV PAIN LEVEL 6-10; Start 06/12/18 at 16:30 Oxycodone/ Acetaminophen (Percocet (5/ 325)) 1 tab Q3H PRN PO PAIN LEVEL 1-5 Last administered on 06/14/18at 09:15; Admin Dose 1 TAB; Start 06/12/18 at 16:30 Oxycodone/ Acetaminophen (Percocet (5/ 325)) 2 tab Q3H PRN PO PAIN LEVEL 6-10 Last administered on 06/15/18at 13:47; Admin Dose 2 TAB; Start 06/12/18 at 16:30 Ondansetron HCl (Zofran Inj) 4 mg Q6H PRN IV NAUSEA AND/OR VOMITING Last administered on 06/13/18at 01:03; Admin Dose 4 MG; Start 06/12/18 at 16:30 Famotidine (Pepcid Iv) 20 mg BID@08,20 IV Last administered on 06/15/18at 09:01; Admin Dose 20 MG; Start 06/12/18 at 20:00 Famotidine (Pepcid) 20 mg BID PO ; Start 06/12/18 at 21:00; Status Hold Acetaminophen (Tylenol Tab) 650 mg Q3H PRN PO ELEVATED TEMPERATURE; Start 06/12/18 at 16:30 Potassium Chloride 50 ml @ 50 mls/hr SEE DIRECTION PRN IVPB K+ LEVEL Last administered on 06/12/18at 18:47; Admin Dose 50 MLS/HR; Start 06/12/18 at 16:30 Magnesium Sulfate/ Dextrose 100 ml @ 100 mls/hr PRN PRN IVPB PENDING LAB VALUE; Start 06/12/18 at 16:30 Nitroglycerin/ Dextrose 250 ml @ 1.5 mls/hr PER PROTOCOL IV Last administered on 06/12/18at 18:07; Admin Dose 15 MLS/HR; Start 06/12/18 at 16:30 Dopamine HCl/ Dextrose 250 ml @ 5.97 mls/hr PER PROTOCOL IV ; Start 06/12/18 at 16:30 Enoxaparin Sodium (Lovenox) 40 mg DAILY SC Last administered on 06/15/18at 09:25; Admin Dose 40 MG; Start 06/13/18 at 09:00 Atorvastatin Calcium (Lipitor) 80 mg HS PO Last administered on 06/14/18at 20:47; Admin Dose 80 MG; Start 06/12/18 at 21:00 Albumin Human 250 ml @ 500 mls/hr PRN PRN IV CVP< 8, OR SBP<90; Start 06/12/18 at 18:30 Empaglifozin (Jardiance) 10 mg DAILY@08 PO Last administered on 06/15/18at 09:07; Admin Dose 10 MG; Start 06/14/18 at 08:00 Miscellaneous Information 1 ea NOTE XX ; Start 06/13/18 at 18:30 Glucose (Glutose) 15 gm Q15M PRN PO DECREASED GLUCOSE; Start 06/13/18 at 18:30 Glucose (Glutose) 22.5 gm Q15M PRN PO DECREASED GLUCOSE; Start 06/13/18 at 18:30 Dextrose (D50w Syringe) 25 ml Q15M PRN IV DECREASED GLUCOSE; Start 06/13/18 at 18:30 Dextrose (D50w Syringe) 50 ml Q15M PRN IV DECREASED GLUCOSE; Start 06/13/18 at 18:30 Glucagon (Glucagen) 1 mg Q15M PRN IM DECREASED GLUCOSE; Start 06/13/18 at 18:30 Glucose (Glutose) 15 gm Q15M PRN BUCCAL DECREASED GLUCOSE; Start 06/13/18 at 18:30 Metoprolol Tartrate (Lopressor) 12.5 mg BID PO Last administered on 06/15/18 09:08; Admin Dose 12.5 MG; Start 06/14/18 at 09:00 Aspirin (Aspirin) 81 mg DAILY PO Last administered on 06/15/18 09:01; Admin Dose 81 MG; Start 06/14/18 at 09:00 Clopidogrel Bisulfate (plaVIX) 75 mg DAILY PO Last administered on 06/15/18 09:02; Admin Dose 75 MG; Start 06/14/18 at 09:00 Insulin Aspart (Novolog Insulin Pen) NOVOLOG *MILD* ALGORITHM WITH MEALS BEDTIME SC Last administered on 06/15/18 11:46; Admin Dose 1 UNIT; Start 06/14/18 at 11:30 Metformin HCl (Glucophage Xr) 1,000 mg BID PO Last administered on 06/15/18 09:07; Admin Dose 1,000 MG; Start 06/14/18 at 21:00 Repaglinide (Prandin) 1 mg AC MEALS PO Last administered on 06/15/18 11:32; Admin Dose 1 MG; Start 06/14/18 at 17:05 Docusate Sodium (Colace) 100 mg BID PO Last administered on 06/15/18 09:01; Admin Dose 100 MG; Start 06/14/18 at 14:30 Polyethylene Glycol (Miralax) 17 gm DAILY PRN PO CONSTIPATION Last administered on 06/14/18 15:19; Admin Dose 17 GM; Start 06/14/18 at 14:30 Patient Own Medication 1 ea ONCE SC ; Start 06/15/18 at 15:30; Stop 06/15/18 at 19:00 Ibuprofen (Motrin) 400 mg TID PO ; Start 06/15/18 at 21:00 NOEL TEIXEIRA June 15, 2018 14:22
[2018-06-15] MEDS: ATORVASTATIN 80 MG TAB PO SCH (22:16)
[2018-06-15] MEDS: IBUPROFEN 400 MG TAB PO SCH (22:17)
[2018-06-16] VITALS (10 sets, daily range): BP systolic 104–138; BP diastolic 63–81; PULSE 86–103; RESP 17–20
--- NOTE | 2018-06-16 06:52 | PN ---
Date/Time of Note Date/Time of Note DATE: 06/16/18 TIME: 06:47 Assessment/Plan VTE Prophylaxis Risk score (from Ns)>0 risk: 6 SCD applied (from Ns): No SCD contraindicated: low risk/ambulating Pharmacological prophylaxis: LMWH Lines/Catheters IV Catheter Type (from [facility]): Saline Lock Urinary Cath still in place: No Assessment/Plan Problems: (1) Nausea with vomiting Status: Acute Comment: Likely due to acute dulaglutide administration. Doubt it will recur. Ondansetron prn. (2) Presence of aortocoronary bypass graft Status: Acute Comment: Doing well Post-op. Cont. management by CT-S. Cont. PT and begin preparations for d/c home. (3) Atelectasis Status: Acute Comment: Cont. IS 10x/hr (4) NSTEMI (non-ST elevated myocardial infarction) Status: Acute Comment: On metoprolol, ASA, clopidogrel. Defer to cardiology. (5) Type 2 diabetes mellitus with other specified complication Status: Chronic Comment: BG in excellent control. Cont. dulaglutide, metformin, empagliflozin, and repaglinide. Monitor BG. Qualifiers: Diabetes mellitus intermediate card tender insulin use: without intermediate card tender use Qualified Codes: E11.69 - Type 2 diabetes mellitus with other specified complication (6) Mixed hyperlipidemia Status: Chronic Comment: Cont. statin Cont Hosp Indication/DC Plan: Likely d/c w/i next [address]-S concurs Result Diagram: 06/15/18 0418 06/15/18 0418 Results 24hrs Laboratory Tests Test 06/15/18 07:55 06/15/18 09:07 06/15/18 11:31 06/15/18 17:41 Bedside Glucose 94 129 157 73 Test 06/15/18 22:43 06/16/18 03:43 Bedside Glucose 173 111 Subjective 24 Hr Interval Summary Constitutional: no complaints Respiratory: no complaints Cardiovascular: no complaints Gastrointestinal: nausea (awoke him from sleep last night and resolved after e mesis), vomiting (single episode that woke him last night.) Genitourinary: no complaints Musculoskeletal: no complaints Neurologic: no complaints Exam/Review of Systems Exam Vitals VS - Last 72 Hours, by Label Date Temp Pulse Resp B/P (MAP) Pulse Ox O2 O2 Flow FiO2 Time Delivery Rate 06/16/18 88 04:00 06/16/18 99.1 95 18 124/70 92 03:55 (88) 06/16/18 98.9 92 17 104/63 92 Room Air 00:00 (77) 06/16/18 86 00:00 06/15/18 99.2 96 18 118/73 92 Room Air 20:00 (88) 06/15/18 108 20:00 06/15/18 99.1 104 18 108/68 92 Room Air 16:36 (81) 06/15/18 105 16:00 06/15/18 98.6 105 18 113/63 95 14:57 (80) 06/15/18 Nasal 2.0 13:52 Cannula 06/15/18 100 13:41 06/15/18 110 27 112/82 95 Room Air 13:00 (92) 06/15/18 99.8 104 24 113/72 94 Room Air 12:00 (86) 06/15/18 102 12:00 06/15/18 105 20 116/74 95 Room Air 11:00 (88) 06/15/18 96 21 107/79 94 Nasal 2.0 10:00 (88) Cannula 06/15/18 99 19 119/72 97 Nasal 2.0 09:00 (88) Cannula 06/15/18 Nasal 2.0 08:00 Cannula 06/15/18 100 08:00 06/15/18 99.0 98 12 120/74 97 Nasal 2.0 08:00 (89) Cannula 06/15/18 93 17 100/71 97 07:00 (81) 06/15/18 89 27 98/75 (83) 96 06:00 06/15/18 4.0 05:11 06/15/18 98.8 85 15 106/74 98 05:00 (85) 06/15/18 84 20 104/56 98 04:00 (72) 06/15/18 81 04:00 06/15/18 85 23 97/69 (78) 100 03:00 06/15/18 85 21 97/76 (83) 99 02:00 06/15/18 90 21 112/78 99 01:00 (89) 06/15/18 98.9 89 24 108/76 99 00:00 (87) 06/15/18 87 00:00 06/14/18 93 21 97/66 (76) 98 23:00 06/14/18 92 22 102/77 100 22:00 (85) 06/14/18 92 24 94/59 (71) 98 21:00 06/14/18 4.0 20:10 06/14/18 100 19 103/71 88 20:00 (82) 06/14/18 100 20:00 06/14/18 103 20:00 06/14/18 98.8 102 18 106/64 89 19:00 (78) 06/14/18 99 23 116/84 18:00 (95) 06/14/18 91 14 103/62 100 17:00 (76) 06/14/18 97.9 94 27 110/75 100 16:00 (87) 06/14/18 101 16:00 06/14/18 98 20 108/86 99 15:00 (93) 06/14/18 97 26 104/72 98 14:00 (83) 06/14/18 102 30 100/64 100 13:00 (76) 06/14/18 96 12:00 06/14/18 98.6 91 23 91/71 (78) 95 Nasal 12:00 Cannula 06/14/18 96 23 99/68 (78) 95 Nasal 11:00 Cannula 06/14/18 95 20 112/72 99 Nasal 10:00 (85) Cannula 06/14/18 4.0 09:10 06/14/18 110 16 102/76 97 Nasal 09:00 (85) Cannula 06/14/18 92 08:00 06/14/18 98.4 95 16 97/70 (79) 97 Nasal 08:00 Cannula 06/14/18 103 18 107/74 97 07:00 (85) 06/14/18 107 19 110/76 95 Nasal 06:00 (87) Cannula 06/14/18 93 13 96/64 (75) 96 Nasal 05:00 Cannula 06/14/18 4.0 04:21 06/14/18 94 04:00 06/14/18 98.6 99 18 110/65 95 Nasal 04:00 (80) Cannula 06/14/18 95 33 102/79 96 Nasal 03:00 (87) Cannula 06/14/18 92 22 104/71 98 Nasal 02:00 (82) Cannula 06/14/18 92 15 108/81 97 01:00 (90) 06/14/18 98.9 91 31 93/69 (77) 98 Nasal 00:00 Cannula 06/14/18 91 31 93/69 (77) 98 00:00 06/14/18 98 00:00 06/13/18 95 27 105/68 100 Nasal 23:00 (80) Cannula 06/13/18 4.0 22:36 06/13/18 102 17 105/77 98 Nasal 22:00 (86) Cannula 06/13/18 98.6 99 18 105/77 99 Nasal 21:00 (86) Cannula 06/13/18 99 20 105/69 96 Nasal 20:00 (81) Cannula 06/13/18 100 20:00 06/13/18 99 24 96/68 (77) 91 Nasal 19:00 Cannula 06/13/18 4.0 18:11 06/13/18 97 24 94/68 (77) 91 Nasal 18:00 Cannula 06/13/18 89 21 105/78 97 Nasal 17:00 (87) Cannula 06/13/18 97 16:00 06/13/18 98.4 98 21 114/85 97 Nasal 16:00 (95) Cannula 06/13/18 97 27 110/64 98 Nasal 15:00 (79) Cannula 06/13/18 101 27 107/88 98 Nasal 14:00 (94) Cannula 06/13/18 98.9 99 18 104/82 98 Nasal 13:00 (89) Cannula 06/13/18 101 23 109/75 96 Nasal 12:00 (86) Cannula 06/13/18 102 12:00 06/13/18 112 14 118/78 94 11:30 (91) 06/13/18 102 19 98/80 (86) 95 Nasal 11:00 Cannula 06/13/18 100 18 123/78 97 10:30 (93) 06/13/18 99.0 110 24 109/73 95 Nasal 10:00 (85) Cannula 06/13/18 98.9 116 17 117/82 93 09:30 (94) 06/13/18 116 17 117/82 93 09:30 (94) 06/13/18 111 35 132/79 92 09:15 (96) 06/13/18 104 27 126/84 93 Nasal 09:00 (98) Cannula 06/13/18 98.6 104 27 126/84 93 09:00 (98) 06/13/18 109 20 128/82 93 08:45 (97) 06/13/18 104 23 117/78 96 08:30 (91) 06/13/18 104 23 117/78 96 Nasal 08:30 (91) Cannula 06/13/18 106 21 114/73 95 08:15 (87) 06/13/18 98.7 106 21 114/73 95 Nasal 08:15 (87) Cannula 06/13/18 106 18 123/74 96 Nasal 08:00 (90) Cannula 06/13/18 101 08:00 06/13/18 98.7 106 18 123/74 96 08:00 (90) 06/13/18 106 19 94 07:45 06/13/18 106 19 141/74 95 07:30 (96) 06/13/18 109 20 110/72 95 07:15 (85) 06/13/18 106 20 119/74 95 07:00 (89) Vital Signs Date Temp Pulse Resp B/P (MAP) Pulse Ox O2 O2 Flow FiO2 Time Delivery Rate 06/16/18 88 04:00 06/16/18 99.1 18 124/70 92 03:55 (88) 06/16/18 Room Air 00:00 06/15/18 2.0 13:52 06/12/18 30 23:25 Intake and Output 06/15/18 06/15/18 06/16/18 1414:59 22:59 06:59 IntakeIntake Total 1000 ml 400 ml OutputOutput Total 525 ml BalanceBalance 475 ml 400 ml Constitutional: alert, oriented, obese Psych: no complaints, nl mood/affect Respiratory: clear to auscultation, normal air movement Cardiovascular: regular rate and rhythm, nl pulses; No edema, No murmurs/extra sounds, No rub Gastrointestinal: soft, nl liver, spleen, non-tender, bowel sounds; No mass, No rebound or guarding Musculoskeletal: nl extremities to inspection Extremities: normal pulses; No cyanosis, No clubbing, No edema 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: POOLING 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 intact, nl mental status, nl speech, nl strength Additional Comments Bedside Glucose - 72 Hours Test 06/13/18 07:40 06/13/18 09:02 06/13/18 10:19 06/13/18 11:06 Bedside 127 151 191 201 Glucose mg/dL (70-220) mg/dL (70-220) mg/dL (70-220) mg/dL (70-220) Test 06/13/18 12:09 06/13/18 12:53 06/13/18 13:53 06/13/18 15:07 Bedside 221 177 175 136 Glucose mg/dL (70-220) mg/dL (70-220) mg/dL (70-220) mg/dL (70-220) H Test 06/13/18 15:51 06/13/18 17:25 06/13/18 19:16 06/13/18 20:26 Bedside 117 117 214 199 Glucose mg/dL (70-220) mg/dL (70-220) mg/dL (70-220) mg/dL (70-220) Test 06/13/18 21:24 06/13/18 22:33 06/13/18 23:45 06/14/18 01:33 Bedside 149 136 151 117 Glucose mg/dL (70-220) mg/dL (70-220) mg/dL (70-220) mg/dL (70-220) Test 06/14/18 03:38 06/14/18 05:34 06/14/18 08:39 06/14/18 11:46 Bedside 123 110 183 235 Glucose mg/dL (70-220) mg/dL (70-220) mg/dL (70-220) mg/dL (70-220) H Test 06/14/18 16:53 06/14/18 20:45 06/15/18 07:55 06/15/18 09:07 Bedside 115 140 94 129 Glucose mg/dL (70-220) mg/dL (70-220) mg/dL (70-220) mg/dL (70-220) Test 06/15/18 11:31 06/15/18 17:41 06/15/18 22:43 06/16/18 03:43 Bedside 157 73 173 111 Glucose mg/dL (70-220) mg/dL (70-220) mg/dL (70-220) mg/dL (70-220) Results Results 24hrs Laboratory Tests Test 06/15/18 07:55 06/15/18 09:07 06/15/18 11:31 06/15/18 17:41 Bedside Glucose 94 129 157 73 Test 06/15/18 22:43 06/16/18 03:43 Bedside Glucose 173 111 Medications Medication Current Medications Hydromorphone HCl (Dilaudid) 0.2 mg Q15M PRN IV PAIN LEVEL 1-5; Start 06/12/18 at 16:30 Hydromorphone HCl (Dilaudid) 0.4 mg Q15M PRN IV PAIN LEVEL 6-10; Start 06/12/18 at 16:30 Oxycodone/ Acetaminophen (Percocet (5/ 325)) 1 tab Q3H PRN PO PAIN LEVEL 1-5 Last administered on 06/14/18 09:15; Admin Dose 1 TAB; Start 06/12/18 at 16:30 Oxycodone/ Acetaminophen (Percocet (5/ 325)) 2 tab Q3H PRN PO PAIN LEVEL 6-10 Last administered on 06/15/18at 13:47; Admin Dose 2 TAB; Start 06/12/18 at 16:30 Ondansetron HCl (Zofran Inj) 4 mg Q6H PRN IV NAUSEA AND/OR VOMITING Last administered on 06/13/18at 01:03; Admin Dose 4 MG; Start 06/12/18 at 16:30 Famotidine (Pepcid Iv) 20 mg BID@08,20 IV Last administered on 06/15/18at 22:17; Admin Dose 20 MG; Start 06/12/18 at 20:00 Famotidine (Pepcid) 20 mg BID PO ; Start 06/12/18 at 21:00; Status Hold Acetaminophen (Tylenol Tab) 650 mg Q3H PRN PO ELEVATED TEMPERATURE; Start 06/12/18 at 16:30 Potassium Chloride 50 ml @ 50 mls/hr SEE DIRECTION PRN IVPB K+ LEVEL Last administered on 06/12/18at 18:47; Admin Dose 50 MLS/HR; Start 06/12/18 at 16:30 Magnesium Sulfate/ Dextrose 100 ml @ 100 mls/hr PRN PRN IVPB PENDING LAB VALUE; Start 06/12/18 at 16:30 Nitroglycerin/ Dextrose 250 ml @ 1.5 mls/hr PER PROTOCOL IV Last administered on 06/12/18at 18:07; Admin Dose 15 MLS/HR; Start 06/12/18 at 16:30 Dopamine HCl/ Dextrose 250 ml @ 5.97 mls/hr PER PROTOCOL IV ; Start 06/12/18 at 16:30 Enoxaparin Sodium (Lovenox) 40 mg DAILY SC Last administered on 06/15/18at 09:25; Admin Dose 40 MG; Start 06/13/18 at 09:00 Atorvastatin Calcium (Lipitor) 80 mg HS PO Last administered on 06/15/18at 22:16; Admin Dose 80 MG; Start 06/12/18 at 21:00 Albumin Human 250 ml @ 500 mls/hr PRN PRN IV CVP< 8, OR SBP<90; Start 06/12/18 at 18:30 Empaglifozin (Jardiance) 10 mg DAILY@08 PO Last administered on 06/15/18at 09:07; Admin Dose 10 MG; Start 06/14/18 at 08:00 Miscellaneous Information 1 ea NOTE XX ; Start 06/13/18 at 18:30 Glucose (Glutose) 15 gm Q15M PRN PO DECREASED GLUCOSE; Start 06/13/18 at 18:30 Glucose (Glutose) 22.5 gm Q15M PRN PO DECREASED GLUCOSE; Start 06/13/18 at 18:30 Dextrose (D50w Syringe) 25 ml Q15M PRN IV DECREASED GLUCOSE; Start 06/13/18 at 18:30 Dextrose (D50w Syringe) 50 ml Q15M PRN IV DECREASED GLUCOSE; Start 06/13/18 at 18:30 Glucagon (Glucagen) 1 mg Q15M PRN IM DECREASED GLUCOSE; Start 06/13/18 at 18:30 Glucose (Glutose) 15 gm Q15M PRN BUCCAL DECREASED GLUCOSE; Start 06/13/18 at 18: 30 Metoprolol Tartrate (Lopressor) 12.5 mg BID PO Last administered on 06/15/18at 22:26; Admin Dose 12.5 MG; Start 06/14/18 at 09:00 Aspirin (Aspirin) 81 mg DAILY PO Last administered on 06/15/18at 09:01; Admin Dose 81 MG; Start 06/14/18 at 09:00 Clopidogrel Bisulfate (plaVIX) 75 mg DAILY PO Last administered on 06/15/18at 09:02; Admin Dose 75 MG; Start 06/14/18 at 09:00 Insulin Aspart (Novolog Insulin Pen) NOVOLOG *MILD* ALGORITHM WITH MEALS BEDTIME SC Last administered on 06/15/18 11:46; Admin Dose 1 UNIT; Start 06/14/18 at 11:30 Metformin HCl (Glucophage Xr) 1,000 mg BID PO Last administered on 06/15/18 22:25; Admin Dose 1,000 MG; Start 06/14/18 at 21:00 Repaglinide (Prandin) 1 mg AC MEALS PO Last administered on 06/15/18 17:40; Admin Dose 1 MG; Start 06/14/18 at 17:05 Docusate Sodium (Colace) 100 mg BID PO Last administered on 06/15/18 22:16; Admin Dose 100 MG; Start 06/14/18 at 14:30 Polyethylene Glycol (Miralax) 17 gm DAILY PRN PO CONSTIPATION Last administered on 06/14/18 15:19; Admin Dose 17 GM; Start 06/14/18 at 14:30 Ibuprofen (Motrin) 400 mg TID PO Last administered on 06/15/18 22:17; Admin Dose 400 MG; Start 06/15/18 at 21:00 MAR CORTEZ MD June 16, 2018 06:52
[2018-06-16] MEDS: INSULIN ASPART [NOVOLOG] 3 ML PEN SC SCH ×4 (08:00→21:00)
[2018-06-16] MEDS: FAMOTIDINE 20 MG INJ IV SCH ×2 (08:56→21:31)
[2018-06-16] MEDS: CLOPIDOGREL 75 MG TAB PO SCH (08:56)
[2018-06-16] MEDS: REPAGLINIDE 1 MG TAB PO SCH ×3 (08:57→17:07)
[2018-06-16] MEDS: EMPAGLIFLOZIN 10 MG TABLET PO SCH (08:57)
[2018-06-16] MEDS: ASPIRIN 81 MG TAB PO SCH (08:57)
[2018-06-16] MEDS: METOPROLOL 25 MG TAB PO SCH ×2 (08:58→21:31)
[2018-06-16] MEDS: DOCUSATE SODIUM 100 MG CAP PO SCH ×2 (08:58→21:30)
[2018-06-16] MEDS: IBUPROFEN 400 MG TAB PO SCH ×3 (08:59→21:31)
[2018-06-16] MEDS: metFORMIN (XR) 500 MG TAB PO SCH ×2 (09:02→20:06)
[2018-06-16] MEDS: ENOXAPARIN 40 MG/0.4 ML SYG SC SCH (09:13)
--- NOTE | 2018-06-16 09:34 | CONS ---
Assessment/Plan Assessment/Plan Assessment/Plan (Daily) Assessment/Plan Assessment/Plan Hospital Course (Demo Recall) Fevers likely due to pericarditis: mild fevers and significant pericardial rub on exam 5/1 consistent with pericarditis. Now rub resolved and fevers resolved after NSAIDs Acute diastolic CHF: mild CHF post op now resolved after diuresis NSTEMI: Cath with 3 vessel CAD in a diabetic. s/p CABG CAD s/p CABG: STERN-LAD, SVG-PDA, SVG-OM 06/12/2018. Acute respiratory failure: extubated 06/12 DM HL -decrease to ibuprofen 400mg TID, then 200mg TID Monday, then d/c Monday -already on pepcid for GI prophylaxis -ASA 81mg -plavix due to NSTEMI -lipitor 80mg -metoprolol 12.5mg BID DOING WELL SOME NAUSEA LAST PM OK HOME FROM MY STANDPOINT F/U WITH DR TEIXEIRA 1 WEEK Consultation Date/Type/Reason Admit Date/Time Jun 12, 2018 at 16:00 Initial Consult Date 06/11/18 Type of Consult Cardiology Reason for Consultation F/U POST CABG Requesting Provider: SRIKANTH HERNANDEZ MD Date/Time of Note DATE: 06/16/18 TIME: 09:30 24 HR Interval Summary Free Text/Dictation CARDS Assessment/Plan Assessment/Plan Hospital Course (Demo Recall) Fevers likely due to pericarditis: mild fevers and significant pericardial rub on exam 5/1 consistent with pericarditis. Now rub resolved and fevers resolved after NSAIDs Acute diastolic CHF: mild CHF post op now resolved after diuresis NSTEMI: Cath with 3 vessel CAD in a diabetic. s/p CABG CAD s/p CABG: STERN-LAD, SVG-PDA, SVG-OM 06/12/2018. Acute respiratory failure: extubated 06/12 DM HL -decrease to ibuprofen 400mg TID, then 200mg TID Monday, then d/c Monday -already on pepcid for GI prophylaxis -ASA 81mg -plavix due to NSTEMI -lipitor 80mg -metoprolol 12.5mg BID DOING WELL POST OP Exam/Review of Systems Vital Signs Vitals Vital Signs Date Temp Pulse Resp B/P (MAP) Pulse Ox O2 O2 Flow FiO2 Time Delivery Rate 06/16/18 99 08:01 06/16/18 98.6 19 125/76 91 07:52 (92) 06/16/18 Room Air 00:00 06/15/18 2.0 13:52 06/12/18 30 23:25 Intake and Output 06/15/18 06/15/18 06/16/18 1515:00 23:00 07:00 IntakeIntake Total 1000 ml 400 ml 300 ml OutputOutput Total 525 ml BalanceBalance 475 ml 400 ml 300 ml Labs Result Diagram: 06/15/18 0418 06/15/18 0418 Results 24hrs Laboratory Tests Test 06/15/18 11:31 06/15/18 17:41 06/15/18 22:43 06/16/18 03:43 Bedside Glucose 157 73 173 111 Test 06/16/18 07:33 Bedside Glucose 124 Medications Medications Current Medications Hydromorphone HCl (Dilaudid) 0.2 mg Q15M PRN IV PAIN LEVEL 1-5; Start 06/12/18 at 16:30 Hydromorphone HCl (Dilaudid) 0.4 mg Q15M PRN IV PAIN LEVEL 6-10; Start 06/12/18 at 16:30 Oxycodone/ Acetaminophen (Percocet (5/ 325)) 1 tab Q3H PRN PO PAIN LEVEL 1-5 Last administered on 06/14/18at 09:15; Admin Dose 1 TAB; Start 06/12/18 at 16:30 Oxycodone/ Acetaminophen (Percocet (5/ 325)) 2 tab Q3H PRN PO PAIN LEVEL 6-10 Last administered on 06/15/18at 13:47; Admin Dose 2 TAB; Start 06/12/18 at 16:30 Ondansetron HCl (Zofran Inj) 4 mg Q6H PRN IV NAUSEA AND/OR VOMITING Last administered on 06/13/18at 01:03; Admin Dose 4 MG; Start 06/12/18 at 16:30 Famotidine (Pepcid Iv) 20 mg BID@08,20 IV Last administered on 06/16/18at 08:56; Admin Dose 20 MG; Start 06/12/18 at 20:00 Famotidine (Pepcid) 20 mg BID PO ; Start 06/12/18 at 21:00; Status Hold Acetaminophen (Tylenol Tab) 650 mg Q3H PRN PO ELEVATED TEMPERATURE; Start 06/12/18 at 16:30 Potassium Chloride 50 ml @ 50 mls/hr SEE DIRECTION PRN IVPB K+ LEVEL Last administered on 06/12/18at 18:47; Admin Dose 50 MLS/HR; Start 06/12/18 at 16:30 Magnesium Sulfate/ Dextrose 100 ml @ 100 mls/hr PRN PRN IVPB PENDING LAB VALUE; Start 06/12/18 at 16:30 Nitroglycerin/ Dextrose 250 ml @ 1.5 mls/hr PER PROTOCOL IV Last administered on 06/12/18at 18:07; Admin Dose 15 MLS/HR; Start 06/12/18 at 16:30 Dopamine HCl/ Dextrose 250 ml @ 5.97 mls/hr PER PROTOCOL IV ; Start 06/12/18 at 16:30 Enoxaparin Sodium (Lovenox) 40 mg DAILY SC Last administered on 06/16/18at 09:13; Admin Dose 40 MG; Start 06/13/18 at 09:00 Atorvastatin Calcium (Lipitor) 80 mg HS PO Last administered on 06/15/18at 22:16; Admin Dose 80 MG; Start 06/12/18 at 21:00 Albumin Human 250 ml @ 500 mls/hr PRN PRN IV CVP< 8, OR SBP<90; Start 06/12/18 at 18:30 Empaglifozin (Jardiance) 10 mg DAILY@08 PO Last administered on 06/16/18at 08:57; Admin Dose 10 MG; Start 06/14/18 at 08:00 Miscellaneous Information 1 ea NOTE XX ; Start 06/13/18 at 18:30 Glucose (Glutose) 15 gm Q15M PRN PO DECREASED GLUCOSE; Start 06/13/18 at 18:30 Glucose (Glutose) 22.5 gm Q15M PRN PO DECREASED GLUCOSE; Start 06/13/18 at 18:30 Dextrose (D50w Syringe) 25 ml Q15M PRN IV DECREASED GLUCOSE; Start 06/13/18 at 18:30 Dextrose (D50w Syringe) 50 ml Q15M PRN IV DECREASED GLUCOSE; Start 06/13/18 at 18:30 Glucagon (Glucagen) 1 mg Q15M PRN IM DECREASED GLUCOSE; Start 06/13/18 at 18:30 Glucose (Glutose) 15 gm Q15M PRN BUCCAL DECREASED GLUCOSE; Start 06/13/18 at 18:30 Metoprolol Tartrate (Lopressor) 12.5 mg BID PO Last administered on 06/16/18 08:58; Admin Dose 12.5 MG; Start 06/14/18 at 09:00 Aspirin (Aspirin) 81 mg DAILY PO Last administered on 06/16/18 08:57; Admin Dose 81 MG; Start 06/14/18 at 09:00 Clopidogrel Bisulfate (plaVIX) 75 mg DAILY PO Last administered on 06/16/18 08:56; Admin Dose 75 MG; Start 06/14/18 at 09:00 Insulin Aspart (Novolog Insulin Pen) NOVOLOG *MILD* ALGORITHM WITH MEALS BEDTIME SC Last administered on 06/15/18 11:46; Admin Dose 1 UNIT; Start 06/14/18 at 11:30 Metformin HCl (Glucophage Xr) 1,000 mg BID PO Last administered on 06/16/18 09:02; Admin Dose 1,000 MG; Start 06/14/18 at 21:00 Repaglinide (Prandin) 1 mg AC MEALS PO Last administered on 06/16/18 08:57; Admin Dose 1 MG; Start 06/14/18 at 17:05 Docusate Sodium (Colace) 100 mg BID PO Last administered on 06/16/18 08:58; Admin Dose 100 MG; Start 06/14/18 at 14:30 Polyethylene Glycol (Miralax) 17 gm DAILY PRN PO CONSTIPATION Last administered on 06/14/18 15:19; Admin Dose 17 GM; Start 06/14/18 at 14:30 Ibuprofen (Motrin) 400 mg TID PO Last administered on 06/16/18 08:59; Admin Dose 400 MG; Start 06/15/18 at 21:00 ANGIE MCGARRY MD June 16, 2018 09:34
--- NOTE | 2018-06-16 10:19 | PN ---
Date/Time of Note Date/Time of Note DATE: 06/16/18 TIME: 10:17 Assessment/Plan Lines/Catheters IV Catheter Type (from Nrsg): Saline Lock Lai in Place (from Nrsg): No Assessment/Plan Assessment/Plan s/p cabg doing well home soon Subjective 24 Hr Interval Summary Constitutional: no complaints, ambulates, BM Pain Control: mild Exam/Review of Systems Vital Signs Vitals Vital Signs Date Temp Pulse Resp B/P (MAP) Pulse Ox O2 O2 Flow FiO2 Time Delivery Rate 06/16/18 99 08:01 06/16/18 98.6 19 125/76 91 07:52 (92) 06/16/18 Room Air 00:00 06/15/18 2.0 13:52 06/12/18 30 23:25 Intake and Output 06/15/18 06/15/18 06/16/18 1515:00 23:00 07:00 IntakeIntake Total 1000 ml 400 ml 300 ml OutputOutput Total 525 ml BalanceBalance 475 ml 400 ml 300 ml Exam Constitutional: oriented Psych: nl mood/affect Head: atraumatic ENMT: nl lips & teeth Neck: non-tender Respiratory: normal air movement Cardiovascular: regular rate and rhythm Musculoskeletal: nl gait and stance 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: HISTOLOGY TECH II-XII intact Results Result Diagram: 06/15/18 0418 06/15/18 0418 COMFORT BRAUN MD June 16, 2018 10:19
[2018-06-16] MEDS: ONDANSETRON 4 MG INJ IV PRN (15:02)
[2018-06-16] MEDS: ATORVASTATIN 80 MG TAB PO SCH (21:31)
[2018-06-16] MEDS: OXYCODONE/ACETAMINOPHEN (5/325) TAB PO PRN (22:17)
[2018-06-17] VITALS (11 sets, daily range): BP systolic 107–138; BP diastolic 60–70; PULSE 80–98; RESP 15–20
--- NOTE | 2018-06-17 06:46 | PN ---
Date/Time of Note Date/Time of Note DATE: 06/17/18 TIME: 06:41 Assessment/Plan VTE Prophylaxis Risk score (from Ns)>0 risk: 4 SCD applied (from Ns): No SCD contraindicated: low risk/ambulating Pharmacological prophylaxis: LMWH Lines/Catheters IV [facility]ter [facility]from [facility] Saline Lock Urinary Cath still in place: No Assessment/Plan Problems: (1) Nausea with vomiting Status: Resolved Comment: Acute effect of trulicity resolving. Cont. weekly dosing. (2) Atelectasis Status: Acute Comment: Clinically improved but cont. to encourage IS 10x/hr (3) Presence of aortocoronary bypass graft Status: Acute Comment: Doing well post-op. Ready for d/c once surgery ready to clear him to go home. (4) NSTEMI (non-ST elevated myocardial infarction) Status: Acute Comment: metoprolol, clopidogrel, ASA added. Cont. management by cardiology. (5) Type 2 diabetes mellitus with other specified complication Status: Chronic Comment: BG below goal. Will d/c repaglinide. Cont. trulicity, jardiance, metformin. Monitor BG. Qualifiers: Diabetes mellitus long term care pharmacist insulin use: without long term care pharmacist use Qualified Codes: E11.69 - Type 2 diabetes mellitus with other specified complication (6) Mixed hyperlipidemia Status: Chronic Comment: Cont. statin Cont Hosp Indication/DC Plan: Ready for d/c when CT surgery and cardiology agree. Result Diagram: 06/17/18 0512 06/15/18 0418 Results 24hrs Laboratory Tests Test 06/16/18 07:33 06/16/18 11:48 06/16/18 15:10 06/16/18 16:56 Bedside Glucose 124 87 92 93 Test 06/16/18 21:07 06/17/18 05:12 Bedside Glucose 96 White Blood Count 5.9 # Red Blood Count 3.84 L Hemoglobin 10.7 L Hematocrit 33.3 L Mean Corpuscular Volume 86.7 Mean Corpuscular 27.9 L Hemoglobin Mean Corpuscular 32.1 Hemoglobin Concent Red Cell Distribution 12.9 Width Platelet Count 272 # Mean Platelet Volume 9.9 Immature Granulocytes % 3.600 H Neutrophils % 53.3 Lymphocytes % 25.9 Monocytes % 12.1 H Eosinophils % 4.1 Basophils % 1.0 Nucleated Red Blood 0.3 H Cells % Immature Granulocytes # 0.210 H Neutrophils # 3.1 Lymphocytes # 1.5 Monocytes # 0.7 Eosinophils # 0.2 Basophils # 0.1 Nucleated Red Blood 0.0 Cells # Subjective 24 Hr Interval Summary Constitutional: no complaints, improved, poor po Respiratory: no complaints; No cough, No shortness of breath Cardiovascular: no complaints; No chest pain Gastrointestinal: decreased appetite (feels leading to lower BG values) Genitourinary: no complaints Musculoskeletal: no complaints Neurologic: no complaints Exam/Review of Systems Exam Vitals VS - Last 72 Hours, by Label Date Temp Pulse Resp B/P (MAP) Pulse Ox O2 O2 Flow FiO2 Time Delivery Rate 06/17/18 98.3 96 20 124/66 92 04:16 (85) 06/17/18 80 04:00 06/17/18 99.6 96 20 120/60 93 00:13 (80) 06/17/18 92 00:00 06/16/18 36.7 22:16 06/16/18 98.1 99 20 121/65 92 20:00 (83) 06/16/18 103 20:00 06/16/18 96 16:01 06/16/18 97.7 102 19 122/81 93 15:17 (95) 06/16/18 94 12:01 06/16/18 98.8 92 18 138/79 92 11:45 (98) 06/16/18 99 08:01 06/16/18 98.6 97 19 125/76 91 07:52 (92) 06/16/18 88 04:00 06/16/18 99.1 95 18 124/70 92 03:55 (88) 06/16/18 98.9 92 17 104/63 92 Room Air 00:00 (77) 06/16/18 86 00:00 06/15/18 99.2 96 18 118/73 92 Room Air 20:00 (88) 06/15/18 108 20:00 06/15/18 99.1 104 18 108/68 92 Room Air 16:36 (81) 06/15/18 105 16:00 06/15/18 98.6 105 18 113/63 95 14:57 (80) 06/15/18 Nasal 2.0 13:52 Cannula 06/15/18 100 13:41 06/15/18 110 27 112/82 95 Room Air 13:00 (92) 06/15/18 99.8 104 24 113/72 94 Room Air 12:00 (86) 06/15/18 102 12:00 06/15/18 105 20 116/74 95 Room Air 11:00 (88) 06/15/18 96 21 107/79 94 Nasal 2.0 10:00 (88) Cannula 06/15/18 99 19 119/72 97 Nasal 2.0 09:00 (88) Cannula 06/15/18 Nasal 2.0 08:00 Cannula 06/15/18 100 08:00 06/15/18 99.0 98 12 120/74 97 Nasal 2.0 08:00 (89) Cannula 06/15/18 93 17 100/71 97 07:00 (81) 06/15/18 89 27 98/75 (83) 96 06:00 06/15/18 4.0 05:11 06/15/18 98.8 85 15 106/74 98 05:00 (85) 06/15/18 84 20 104/56 98 04:00 (72) 06/15/18 81 04:00 06/15/18 85 23 97/69 (78) 100 03:00 06/15/18 85 21 97/76 (83) 99 02:00 06/15/18 90 21 112/78 99 01:00 (89) 06/15/18 98.9 89 24 108/76 99 00:00 (87) 06/15/18 87 00:00 06/14/18 93 21 97/66 (76) 98 23:00 06/14/18 92 22 102/77 100 22:00 (85) 06/14/18 92 24 94/59 (71) 98 21:00 06/14/18 4.0 20:10 06/14/18 100 19 103/71 88 20:00 (82) 06/14/18 100 20:00 06/14/18 103 20:00 06/14/18 98.8 102 18 106/64 89 19:00 (78) 06/14/18 99 23 116/84 18:00 (95) 06/14/18 91 14 103/62 100 17:00 (76) 06/14/18 97.9 94 27 110/75 100 16:00 (87) 06/14/18 101 16:00 06/14/18 98 20 108/86 99 15:00 (93) 06/14/18 97 26 104/72 98 14:00 (83) 06/14/18 102 30 100/64 100 13:00 (76) 06/14/18 96 12:00 06/14/18 98.6 91 23 91/71 (78) 95 Nasal 12:00 Cannula 06/14/18 96 23 99/68 (78) 95 Nasal 11:00 Cannula 06/14/18 95 20 112/72 99 Nasal 10:00 (85) Cannula 06/14/18 4.0 09:10 06/14/18 110 16 102/76 97 Nasal 09:00 (85) Cannula 06/14/18 92 08:00 06/14/18 98.4 95 16 97/70 (79) 97 Nasal 08:00 Cannula 06/14/18 103 18 107/74 97 07:00 (85) Vital Signs Date Temp Pulse Resp B/P (MAP) Pulse Ox O2 O2 Flow FiO2 Time Delivery Rate 06/17/18 98.3 96 20 124/66 92 04:16 (85) 06/16/18 Room Air 00:00 06/15/18 2.0 13:52 Intake and Output 06/16/18 06/16/18 06/17/18 1515:00 23:00 07:00 IntakeIntake Total 440 ml OutputOutput Total 300 ml BalanceBalance -300 ml 440 ml Constitutional: alert, oriented, well developed Psych: no complaints, nl mood/affect Respiratory: clear to auscultation, normal air movement Cardiovascular: regular rate and rhythm, nl pulses; No edema, No murmurs/extra sounds, No rub Gastrointestinal: soft, nl liver, spleen, non-tender, bowel sounds; No mass, No rebound or guarding Musculoskeletal: nl extremities to inspection Extremities: normal pulses; No cyanosis, No clubbing, No edema 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: [employer] ANALYST II-XII intact, nl mental status, nl speech, nl strength Additional Comments Bedside Glucose - 72 Hours Test 06/14/18 08:39 06/14/18 11:46 06/14/18 16:53 06/14/18 20:45 Bedside 183 235 115 140 Glucose mg/dL (70-220) mg/dL (70-220) mg/dL (70-220) mg/dL (70-220) H Test 06/15/18 07:55 06/15/18 09:07 06/15/18 11:31 06/15/18 17:41 Bedside 94 129 157 73 Glucose mg/dL (70-220) mg/dL (70-220) mg/dL (70-220) mg/dL (70-220) Test 06/15/18 22:43 06/16/18 03:43 06/16/18 07:33 06/16/18 11:48 Bedside 173 111 124 87 Glucose mg/dL (70-220) mg/dL (70-220) mg/dL (70-220) mg/dL (70-220) Test 06/16/18 15:10 06/16/18 16:56 06/16/18 21:07 Bedside 92 93 96 Glucose mg/dL (70-220) mg/dL (70-220) mg/dL (70-220) Results Results 24hrs Laboratory Tests Test 06/16/18 07:33 06/16/18 11:48 06/16/18 15:10 06/16/18 16:56 Bedside Glucose 124 87 92 93 Test 06/16/18 21:07 06/17/18 05:12 Bedside Glucose 96 White Blood Count 5.9 # Red Blood Count 3.84 L Hemoglobin 10.7 L Hematocrit 33.3 L Mean Corpuscular Volume 86.7 Mean Corpuscular 27.9 L Hemoglobin Mean Corpuscular 32.1 Hemoglobin Concent Red Cell Distribution 12.9 Width Platelet Count 272 # Mean Platelet Volume 9.9 Immature Granulocytes % 3.600 H Neutrophils % 53.3 Lymphocytes % 25.9 Monocytes % 12.1 H Eosinophils % 4.1 Basophils % 1.0 Nucleated Red Blood 0.3 H Cells % Immature Granulocytes # 0.210 H Neutrophils # 3.1 Lymphocytes # 1.5 Monocytes # 0.7 Eosinophils # 0.2 Basophils # 0.1 Nucleated Red Blood 0.0 Cells # Medications Medication Current Medications Hydromorphone HCl (Dilaudid) 0.2 mg Q15M PRN IV PAIN LEVEL 1-5; Start 06/12/18 at 16:30 Hydromorphone HCl (Dilaudid) 0.4 mg Q15M PRN IV PAIN LEVEL 6-10; Start 06/12/18 at 16:30 Oxycodone/ Acetaminophen (Percocet (5/ 325)) 1 tab Q3H PRN PO PAIN LEVEL 1-5 Last administered on 06/16/18 22:17; Admin Dose 1 TAB; Start 06/12/18 at 16:30 Oxycodone/ Acetaminophen (Percocet (5/ 325)) 2 tab Q3H PRN PO PAIN LEVEL 6-10 Last administered on 06/15/18 13:47; Admin Dose 2 TAB; Start 06/12/18 at 16:30 Ondansetron HCl (Zofran Inj) 4 mg Q6H PRN IV NAUSEA AND/OR VOMITING Last administered on 06/16/18 15:02; Admin Dose 4 MG; Start 06/12/18 at 16:30 Famotidine (Pepcid Iv) 20 mg BID@08,20 IV Last administered on 06/16/18 21:31; Admin Dose 20 MG; Start 06/12/18 at 20:00 Famotidine (Pepcid) 20 mg BID PO ; Start 06/12/18 at 21:00; Status Hold Acetaminophen (Tylenol Tab) 650 mg Q3H PRN PO ELEVATED TEMPERATURE; Start 06/12/18 at 16:30 Potassium Chloride 50 ml @ 50 mls/hr SEE DIRECTION PRN IVPB K+ LEVEL Last administered on 06/12/18 18:47; Admin Dose 50 MLS/HR; Start 06/12/18 at 16:30 Magnesium Sulfate/ Dextrose 100 ml @ 100 mls/hr PRN PRN IVPB PENDING LAB VALUE; Start 06/12/18 at 16:30 Enoxaparin Sodium (Lovenox) 40 mg DAILY SC Last administered on 06/16/18 09:13; Admin Dose 40 MG; Start 06/13/18 at 09:00 Atorvastatin Calcium (Lipitor) 80 mg HS PO Last administered on 06/16/18 21:31; Admin Dose 80 MG; Start 06/12/18 at 21:00 Albumin Human 250 ml @ 500 mls/hr PRN PRN IV CVP< 8, OR SBP<90; Start 06/12/18 at 18:30 Empaglifozin (Jardiance) 10 mg DAILY@08 PO Last administered on 06/16/18 08:57; Admin Dose 10 MG; Start 06/14/18 at 08:00 Miscellaneous Information 1 ea NOTE XX ; Start 06/13/18 at 18:30 Glucose (Glutose) 15 gm Q15M PRN PO DECREASED GLUCOSE; Start 06/13/18 at 18:30 Glucose (Glutose) 22.5 gm Q15M PRN PO DECREASED GLUCOSE; Start 06/13/18 at 18:30 Dextrose (D50w Syringe) 25 ml Q15M PRN IV DECREASED GLUCOSE; Start 06/13/18 at 18:30 Dextrose (D50w Syringe) 50 ml Q15M PRN IV DECREASED GLUCOSE; Start 06/13/18 at 18:30 Glucagon (Glucagen) 1 mg Q15M PRN IM DECREASED GLUCOSE; Start 06/13/18 at 18:30 Glucose (Glutose) 15 gm Q15M PRN BUCCAL DECREASED GLUCOSE; Start 06/13/18 at 18:30 Metoprolol Tartrate (Lopressor) 12.5 mg BID PO Last administered on 06/16/18 21:31; Admin Dose 12.5 MG; Start 06/14/18 at 09:00 Aspirin (Aspirin) 81 mg DAILY PO Last administered on 06/16/18 08:57; Admin Dose 81 MG; Start 06/14/18 at 09:00 Clopidogrel Bisulfate (plaVIX) 75 mg DAILY PO Last administered on 06/16/18 08:56; Admin Dose 75 MG; Start 06/14/18 at 09:00 Insulin Aspart (Novolog Insulin Pen) NOVOLOG *MILD* ALGORITHM WITH MEALS BEDTIME SC Last administered on 06/15/18 11:46; Admin Dose 1 UNIT; Start 06/14/18 at 11:30 Metformin HCl (Glucophage Xr) 1,000 mg BID PO Last administered on 06/16/18 09:02; Admin Dose 1,000 MG; Start 06/14/18 at 21:00 Repaglinide (Prandin) 1 mg AC MEALS PO Last administered on 06/16/18 17:07; Admin Dose 1 MG; Start 06/14/18 at 17:05 Docusate Sodium (Colace) 100 mg BID PO Last administered on 06/16/18 21:30; Admin Dose 100 MG; Start 06/14/18 at 14:30 Polyethylene Glycol (Miralax) 17 gm DAILY PRN PO CONSTIPATION Last administered on 06/14/18 15:19; Admin Dose 17 GM; Start 06/14/18 at 14:30 Ibuprofen (Motrin) 400 mg TID PO Last administered on 06/16/18at 21:31; Admin Dose 400 MG; Start 06/15/18 at 21:00 MAR CORTEZ MD June 17, 2018 06:46
[2018-06-17] MEDS: INSULIN ASPART [NOVOLOG] 3 ML PEN SC SCH ×4 (08:00→20:59)
--- NOTE | 2018-06-17 08:12 | PN ---
Date/Time of Note Date/Time of Note DATE: 06/17/18 TIME: 08:11 Assessment/Plan Lines/Catheters IV Catheter Type (from Nrs): Saline Lock Lai in Place (from Nrs): No Assessment/Plan Assessment/Plan doing well, labs ok, discharge home today and follow up in one week Exam/Review of Systems Vital Signs Vitals Vital Signs Date Temp Pulse Resp B/P (MAP) Pulse Ox O2 O2 Flow FiO2 Time Delivery Rate 06/17/18 98.3 96 20 124/66 92 04:16 (85) 06/16/18 Room Air 00:00 06/15/18 2.0 13:52 Intake and Output 06/16/18 06/16/18 06/17/18 1515:00 23:00 07:00 IntakeIntake Total 440 ml OutputOutput Total 300 ml BalanceBalance -300 ml 440 ml Results Result Diagram: 06/17/18 0512 06/17/18 0512 AG FUNG MD June 17, 2018 08:12
[2018-06-17] MEDS: FAMOTIDINE 20 MG INJ IV SCH ×2 (08:26→20:56)
[2018-06-17] MEDS: ASPIRIN 81 MG TAB PO SCH (08:27)
[2018-06-17] MEDS: EMPAGLIFLOZIN 10 MG TABLET PO SCH (08:27)
[2018-06-17] MEDS: metFORMIN (XR) 500 MG TAB PO SCH ×2 (08:27→20:55)
[2018-06-17] MEDS: IBUPROFEN 400 MG TAB PO SCH ×3 (08:28→20:55)
[2018-06-17] MEDS: DOCUSATE SODIUM 100 MG CAP PO SCH ×2 (08:28→20:55)
[2018-06-17] MEDS: CLOPIDOGREL 75 MG TAB PO SCH (08:28)
[2018-06-17] MEDS: METOPROLOL 25 MG TAB PO SCH ×2 (08:30→20:56)
[2018-06-17] MEDS: ENOXAPARIN 40 MG/0.4 ML SYG SC SCH (08:46)
--- NOTE | 2018-06-17 11:45 | CONS ---
Assessment/Plan Assessment/Plan Hospital Course (Demo Recall) Assessment/Plan Hospital Course (Demo Recall) Fevers likely due to pericarditis: mild fevers and significant pericardial rub on exam 06/13 consistent with pericarditis. Now rub resolved and fevers resolved after NSAIDs Acute diastolic CHF: mild CHF post op now resolved after diuresis NSTEMI: Cath with 3 vessel CAD in a diabetic. s/p CABG CAD s/p CABG: STERN-LAD, SVG-PDA, SVG-OM 06/12/2018. Acute respiratory failure: extubated 06/12 DM HL -decrease to ibuprofen 400mg TID, then 200mg TID Monday, then d/c Monday -already on pepcid for GI prophylaxis -ASA 81mg -plavix due to NSTEMI -lipitor 80mg -metoprolol 12.5mg BID DOING WELL POST OP ok home Consultation Date/Type/Reason Admit Date/Time Jun 12, 2018 at 16:00 Initial Consult Date 06/11/18 Type of Consult Cardiology Requesting Provider: SRIKANTH HERNANDEZ MD Date/Time of Note DATE: 06/17/18 TIME: 11:43 24 HR Interval Summary Free Text/Dictation pain free ambulating Exam/Review of Systems Vital Signs Vitals Vital Signs Date Temp Pulse Resp B/P (MAP) Pulse Ox O2 O2 Flow FiO2 Time Delivery Rate 06/17/18 98.2 89 16 115/69 90 08:07 (84) 06/16/18 Room Air 00:00 06/15/18 2.0 13:52 Intake and Output 06/16/18 06/16/18 06/17/18 1515:00 23:00 07:00 IntakeIntake Total 440 ml OutputOutput Total 300 ml BalanceBalance -300 ml 440 ml Exam Exam Constitutional: alert, oriented Psych: no complaints, nl mood/affect Head: normocephalic, atraumatic Neck: supple; No jvd Respiratory: diminished breath sounds; No clear to auscultation Cardiovascular: regular rate and rhythm; No edema Gastrointestinal: soft, non-tender; No distended 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: nl mental status, nl speech Labs Result Diagram: 06/17/18 0512 06/17/18 0512 Results 24hrs Laboratory Tests Test 06/16/18 11:48 06/16/18 15:10 06/16/18 16:56 06/16/18 21:07 Bedside Glucose 87 92 93 96 Test 06/17/18 05:12 06/17/18 07:33 White Blood Count 5.9 # Red Blood Count 3.84 L Hemoglobin 10.7 L Hematocrit 33.3 L Mean Corpuscular Volume 86.7 Mean Corpuscular 27.9 L Hemoglobin Mean Corpuscular 32.1 Hemoglobin Concent Red Cell Distribution 12.9 Width Platelet Count 272 # Mean Platelet Volume 9.9 Immature Granulocytes % 3.600 H Neutrophils % 53.3 Lymphocytes % 25.9 Monocytes % 12.1 H Eosinophils % 4.1 Basophils % 1.0 Nucleated Red Blood 0.3 H Cells % Immature Granulocytes # 0.210 H Neutrophils # 3.1 Lymphocytes # 1.5 Monocytes # 0.7 Eosinophils # 0.2 Basophils # 0.1 Nucleated Red Blood 0.0 Cells # Sodium Level 143 Potassium Level 3.9 Chloride Level 107 Carbon Dioxide Level 28 Anion Gap 8 Blood Urea Nitrogen 25 H Creatinine 0.97 Est Glomerular Filtrat > 60 Rate mL/min Glucose Level 101 Calcium Level 9.2 Bedside Glucose 138 Medications Medications Current Medications Hydromorphone HCl (Dilaudid) 0.2 mg Q15M PRN IV PAIN LEVEL 1-5; Start 06/12/18 at 16:30 Hydromorphone HCl (Dilaudid) 0.4 mg Q15M PRN IV PAIN LEVEL 6-10; Start 06/12/18 at 16:30 Oxycodone/ Acetaminophen (Percocet (5/ 325)) 1 tab Q3H PRN PO PAIN LEVEL 1-5 Last administered on 06/16/18at 22:17; Admin Dose 1 TAB; Start 06/12/18 at 16:30 Oxycodone/ Acetaminophen (Percocet (5/ 325)) 2 tab Q3H PRN PO PAIN LEVEL 6-10 Last administered on 06/15/18at 13:47; Admin Dose 2 TAB; Start 06/12/18 at 16:30 Ondansetron HCl (Zofran Inj) 4 mg Q6H PRN IV NAUSEA AND/OR VOMITING Last administered on 06/16/18at 15:02; Admin Dose 4 MG; Start 06/12/18 at 16:30 Famotidine (Pepcid Iv) 20 mg BID@08,20 IV Last administered on 06/17/18at 08:26; Admin Dose 20 MG; Start 06/12/18 at 20:00 Famotidine (Pepcid) 20 mg BID PO ; Start 06/12/18 at 21:00; Status Hold Acetaminophen (Tylenol Tab) 650 mg Q3H PRN PO ELEVATED TEMPERATURE; Start 06/12/18 at 16:30 Potassium Chloride 50 ml @ 50 mls/hr SEE DIRECTION PRN IVPB K+ LEVEL Last administered on 06/12/18at 18:47; Admin Dose 50 MLS/HR; Start 06/12/18 at 16:30 Magnesium Sulfate/ Dextrose 100 ml @ 100 mls/hr PRN PRN IVPB PENDING LAB VALUE; Start 06/12/18 at 16:30 Enoxaparin Sodium (Lovenox) 40 mg DAILY SC Last administered on 06/17/18at 08:46; Admin Dose 40 MG; Start 06/13/18 at 09:00 Atorvastatin Calcium (Lipitor) 80 mg HS PO Last administered on 06/16/18at 21:31; Admin Dose 80 MG; Start 06/12/18 at 21:00 Albumin Human 250 ml @ 500 mls/hr PRN PRN IV CVP< 8, OR SBP<90; Start 06/12/18 at 18:30 Empaglifozin (Jardiance) 10 mg DAILY@08 PO Last administered on 06/17/18at 08:27; Admin Dose 10 MG; Start 06/14/18 at 08:00 Miscellaneous Information 1 ea NOTE XX ; Start 06/13/18 at 18:30 Glucose (Glutose) 15 gm Q15M PRN PO DECREASED GLUCOSE; Start 06/13/18 at 18:30 Glucose (Glutose) 22.5 gm Q15M PRN PO DECREASED GLUCOSE; Start 06/13/18 at 18:30 Dextrose (D50w Syringe) 25 ml Q15M PRN IV DECREASED GLUCOSE; Start 06/13/18 at 18:30 Dextrose (D50w Syringe) 50 ml Q15M PRN IV DECREASED GLUCOSE; Start 06/13/18 at 18:30 Glucagon (Glucagen) 1 mg Q15M PRN IM DECREASED GLUCOSE; Start 06/13/18 at 18:30 Glucose (Glutose) 15 gm Q15M PRN BUCCAL DECREASED GLUCOSE; Start 06/13/18 at 18:30 Metoprolol Tartrate (Lopressor) 12.5 mg BID PO Last administered on 06/17/18 08:30; Admin Dose 12.5 MG; Start 06/14/18 at 09:00 Aspirin (Aspirin) 81 mg DAILY PO Last administered on 06/17/18 08:27; Admin Dose 81 MG; Start 06/14/18 at 09:00 Clopidogrel Bisulfate (plaVIX) 75 mg DAILY PO Last administered on 06/17/18 08:28; Admin Dose 75 MG; Start 06/14/18 at 09:00 Insulin Aspart (Novolog Insulin Pen) NOVOLOG *MILD* ALGORITHM WITH MEALS BEDTIME SC Last administered on 06/15/18 11:46; Admin Dose 1 UNIT; Start 06/14/18 at 11:30 Metformin HCl (Glucophage Xr) 1,000 mg BID PO Last administered on 06/17/18 08:27; Admin Dose 1,000 MG; Start 06/14/18 at 21:00 Docusate Sodium (Colace) 100 mg BID PO Last administered on 06/17/18 08:28; Admin Dose 100 MG; Start 06/14/18 at 14:30 Polyethylene Glycol (Miralax) 17 gm DAILY PRN PO CONSTIPATION Last administered on 06/14/18 15:19; Admin Dose 17 GM; Start 06/14/18 at 14:30 Ibuprofen (Motrin) 400 mg TID PO Last administered on 06/17/18 08:28; Admin Dose 400 MG; Start 06/15/18 at 21:00 ANGIE MCGARRY MD June 17, 2018 11:45
[2018-06-17] MEDS: ATORVASTATIN 80 MG TAB PO SCH (20:56)
[2018-06-18] VITALS: BP 128/68; PULSE 89; PULSE 95; RESP 17
[2018-06-18 04:00] VITALS: BP 128/70; PULSE 77; RESP 17
[2018-06-18 07:22] VITALS: BP 115/68; PULSE 93; RESP 20
[2018-06-18] MEDS: INSULIN ASPART [NOVOLOG] 3 ML PEN SC SCH ×2 (07:22→12:00)
[2018-06-18] MEDS: EMPAGLIFLOZIN 10 MG TABLET PO SCH (07:36)
[2018-06-18] MEDS: metFORMIN (XR) 500 MG TAB PO SCH (07:38)
[2018-06-18 08:01] VITALS: PULSE 103
[2018-06-18] MEDS: DOCUSATE SODIUM 100 MG CAP PO SCH (09:41)
[2018-06-18] MEDS: ASPIRIN 81 MG TAB PO SCH (09:41)
[2018-06-18] MEDS: FAMOTIDINE 20 MG INJ IV SCH (09:41)
[2018-06-18] MEDS: CLOPIDOGREL 75 MG TAB PO SCH (09:41)
[2018-06-18] MEDS: METOPROLOL 25 MG TAB PO SCH (09:42)
[2018-06-18] MEDS: ENOXAPARIN 40 MG/0.4 ML SYG SC SCH (09:43)
[2018-06-18] MEDS: IBUPROFEN 400 MG TAB PO SCH (09:47)
--- NOTE | 2018-06-18 10:19 | CONS ---
Assessment/Plan Assessment/Plan Hospital Course (Demo Recall) Fevers likely due to pericarditis: mild fevers and significant pericardial rub on exam 06/13 consistent with pericarditis. Rub resolved and fevers resolved after NSAIDs Acute diastolic CHF: mild CHF post op now resolved after diuresis NSTEMI: Cath with 3 vessel CAD in a diabetic. s/p CABG CAD s/p CABG: STERN-LAD, SVG-PDA, SVG-OM 06/12/2018. Acute respiratory failure: extubated 06/12 DM HL -d/c ibuprofen -otherwise ok for d/c with below meds -ASA 81mg -plavix due to NSTEMI -lipitor 80mg -metoprolol 12.5mg BID Consultation Date/Type/Reason Admit Date/Time Jun 12, 2018 at 16:00 Initial Consult Date 06/11/18 Type of Consult Cardiology Requesting Provider: SRIKANTH HERNANDEZ MD Date/Time of Note DATE: 06/18/18 TIME: 10:18 24 HR Interval Summary Free Text/Dictation No events. No complaints. Doing well. Home today per plan Exam/Review of Systems Vital Signs Vitals Vital Signs Date Temp Pulse Resp B/P (MAP) Pulse Ox O2 O2 Flow FiO2 Time Delivery Rate 06/18/18 103 08:01 06/18/18 Room Air 07:53 06/18/18 98.3 20 115/68 97 07:22 (84) 06/15/18 2.0 13:52 Intake and Output 06/17/18 06/17/18 06/18/18 1515:00 23:00 07:00 IntakeIntake Total 1200 ml 500 ml BalanceBalance 1200 ml 500 ml Exam Constitutional: alert, oriented Psych: no complaints, nl mood/affect Head: normocephalic, atraumatic Neck: supple; No jvd Respiratory: clear to auscultation, diminished breath sounds; No crackles/rales Cardiovascular: regular rate and rhythm; No edema Gastrointestinal: soft, non-tender; No distended 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: nl mental status, nl speech Labs Result Diagram: 06/17/18 0512 06/17/18 0512 Results 24hrs Laboratory Tests Test 06/17/18 11:54 06/17/18 16:48 06/17/18 20:54 06/18/18 07:18 Bedside Glucose 158 93 128 121 Medications Medications Current Medications Hydromorphone HCl (Dilaudid) 0.2 mg Q15M PRN IV PAIN LEVEL 1-5; Start 06/12/18 at 16:30 Hydromorphone HCl (Dilaudid) 0.4 mg Q15M PRN IV PAIN LEVEL 6-10; Start 06/12/18 at 16:30 Oxycodone/ Acetaminophen (Percocet (5/ 325)) 1 tab Q3H PRN PO PAIN LEVEL 1-5 Last administered on 06/16/18 22:17; Admin Dose 1 TAB; Start 06/12/18 at 16:30 Oxycodone/ Acetaminophen (Percocet (5/ 325)) 2 tab Q3H PRN PO PAIN LEVEL 6-10 Last administered on 06/15/18 13:47; Admin Dose 2 TAB; Start 06/12/18 at 16:30 Ondansetron HCl (Zofran Inj) 4 mg Q6H PRN IV NAUSEA AND/OR VOMITING Last administered on 06/16/18at 15:02; Admin Dose 4 MG; Start 06/12/18 at 16:30 Famotidine (Pepcid Iv) 20 mg BID@08,20 IV Last administered on 06/18/18 09:41; Admin Dose 20 MG; Start 06/12/18 at 20:00 Famotidine (Pepcid) 20 mg BID PO ; Start 06/12/18 at 21:00; Status Hold Acetaminophen (Tylenol Tab) 650 mg Q3H PRN PO ELEVATED TEMPERATURE; Start 06/12/18 at 16:30 Potassium Chloride 50 ml @ 50 mls/hr SEE DIRECTION PRN IVPB K+ LEVEL Last administered on 06/12/18 18:47; Admin Dose 50 MLS/HR; Start 06/12/18 at 16:30 Magnesium Sulfate/ Dextrose 100 ml @ 100 mls/hr PRN PRN IVPB PENDING LAB VALUE; Start 06/12/18 at 16:30 Enoxaparin Sodium (Lovenox) 40 mg DAILY SC Last administered on 06/18/18 09:43; Admin Dose 40 MG; Start 06/13/18 at 09:00 Atorvastatin Calcium (Lipitor) 80 mg HS PO Last administered on 06/17/18 20:56; Admin Dose 80 MG; Start 06/12/18 at 21:00 Albumin Human 250 ml @ 500 mls/hr PRN PRN IV CVP< 8, OR SBP<90; Start 06/12/18 at 18:30 Empaglifozin (Jardiance) 10 mg DAILY@08 PO Last administered on 06/18/18 07:36; Admin Dose 10 MG; Start 06/14/18 at 08:00 Miscellaneous Information 1 ea NOTE XX ; Start 06/13/18 at 18:30 Glucose (Glutose) 15 gm Q15M PRN PO DECREASED GLUCOSE; Start 06/13/18 at 18:30 Glucose (Glutose) 22.5 gm Q15M PRN PO DECREASED GLUCOSE; Start 06/13/18 at 18:30 Dextrose (D50w Syringe) 25 ml Q15M PRN IV DECREASED GLUCOSE; Start 06/13/18 at 18:30 Dextrose (D50w Syringe) 50 ml Q15M PRN IV DECREASED GLUCOSE; Start 06/13/18 at 18:30 Glucagon (Glucagen) 1 mg Q15M PRN IM DECREASED GLUCOSE; Start 06/13/18 at 18:30 Glucose (Glutose) 15 gm Q15M PRN BUCCAL DECREASED GLUCOSE; Start 06/13/18 at 18:30 Metoprolol Tartrate (Lopressor) 12.5 mg BID PO Last administered on 06/18/18 09:42; Admin Dose 12.5 MG; Start 06/14/18 at 09:00 Aspirin (Aspirin) 81 mg DAILY PO Last administered on 06/18/18 09:41; Admin Dose 81 MG; Start 06/14/18 at 09:00 Clopidogrel Bisulfate (plaVIX) 75 mg DAILY PO Last administered on 06/18/18 09:41; Admin Dose 75 MG; Start 06/14/18 at 09:00 Insulin Aspart (Novolog Insulin Pen) NOVOLOG *MILD* ALGORITHM WITH MEALS BEDTIME SC Last administered on 06/17/18 12:22; Admin Dose 1 UNIT; Start 06/14/18 at 11:30 Metformin HCl (Glucophage Xr) 1,000 mg BID PO Last administered on 06/18/18 07:38; Admin Dose 1,000 MG; Start 06/14/18 at 21:00 Docusate Sodium (Colace) 100 mg BID PO Last administered on 06/18/18 09:41; Admin Dose 100 MG; Start 06/14/18 at 14:30 Polyethylene Glycol (Miralax) 17 gm DAILY PRN PO CONSTIPATION Last administered on 06/14/18at 15:19; Admin Dose 17 GM; Start 06/14/18 at 14:30 NOEL TEIXEIRA June 18, 2018 10:19
[2018-06-18 11:48] VITALS: BP 110/68; PULSE 92; RESP 18
--- NOTE | 2018-06-18 12:55 | PDOCDIS ---
Discharge Instructions DIAGNOSIS Discharge Diagnosis NSTEMI, s/p CABG 3-vessels CONDITION [id number] Patient Condition: [id number] Good HOME CARE INSTRUCTIONS: [id number] Diet Instructions: [id number] low-carb ACTIVITY: [id number] Activity Restrictions: [id number] Slowly Increase Activity Rest between Activity Avoid heavy lifting Avoid Heavy Housework Cardiac Rehab Agxiz4Eb Bathing Restrictions: [id number] Shower FOLLOW UP/APPOINTMENTS Follow-up Plan f/u w/ Dr. Baltazar in 1 wk; f/u w/ Dr. Pablo in 1 wk; f/u w/ Dr. Irby in 2 wks. MAR IRBY MD June 18, 2018 12:55
[2018-06-18] MEDS ORDERED: EMPA10TA PO (12:58)
[2018-06-18] MEDS ORDERED: METO-448 PO (12:58)
[2018-06-18] MEDS ORDERED: CLOP75TA28 PO (12:58)
[2018-06-18] MEDS ORDERED: ATOR-2 PO (12:58)
[2018-06-18] MEDS ORDERED: ASPI-831 PO (12:58)
[2018-06-18] MEDS ORDERED: METF500T3 PO (12:58)
--- NOTE | 2018-06-18 13:04 | DS ---
Date/Time of Note Date/Time of Note DATE: 06/18/18 TIME: 12:58 Discharge Summary Admission/Discharge Info Admit Date/Time Jun 12, 2018 at 16:00 Discharge Date/Time 06/18/2018 @ 1300 Discharge Diagnosis NSTEMI, s/p CABG 3-vessels Patient Condition: Good Consults Dr. Pablo, cardiology; Dr. Baltazar, CT-surgery Procedures ECHOcardiogram: Normal left ventricular systolic function. Normal left ventricular cavity size. Mild concentric left ventricular hypertrophy. Ejection fraction is visually estimated at 60 %. Tissue Doppler/Mitral Doppler indices are within normal limits. No significant valvular stenosis or regurgitation seen. Unable to obtain RVSP due to minimal presence of tricuspid regurgitation. Normal size and normal respiratory collapse consistent with normal right atrial pressure. L heart catheterization: Anatomy/Hemodynamics: Left main: normal; LAD:mid 80% right after a large diagonal; Diagonal:large vessel, luminal irregularities; Circumflex:luminal irregularities; Obtuse marginal:large trifurcating vessel with prox 100% [employer] with left-left collaterals to 2 of the inferior branches; RCA:luminal irregularities; PDA: mid 95-99%; PLV:luminal irregularities; LV angiography:EF 60%, very mild inferior hypokinesis; LV-Ao: no significant gradient; LVEDP:10 mmHg. 3-vessel CABG: LV function was good pre and post-revascularization. Cardiopulmonary bypass time was 64 minutes. Crossclamp time was 42 minutes. His obtuse marginal art josh was a 1.75 mm vessel and the flow in this was 17 mL per minute. The PDA was a 2 mm vessel and the flow in this was 46 mL per minute. The LAD was a 1.75 mm vessel and the flow in the STERN to LAD was 20 mL per minute. Hx of Present Illness 47 y/o H M w/ h/o T2DM and [place] [facility] [place] when, after dinner, pt. developed acute onset chest pressure associated w/ nausea and vomiting and diaphoresis. Vomited and felt better. Went to bed. Next day was sitting, relaxing in his chair and had repeat episode but worse than before. Came to ER where EKG was found to be unremarkable. However, troponin value was elevated this am. Pt. taken by cardiology to [facility] where he was found to have diffuse three-vessel disease. Has been evaluated by CT-S and will have CABG tomorrow. Hospital Course Pt. did well post-CABG. Intubated on POD#1 on propofol. Successfully extubated. Complicated by mild pericarditis successfully treated w/ NSAIDs and also w/ mild acute diastolic CHF successfully treated w/ diuretics. (+) atelectasis treated w/ incentive spirometry. Chest tubes d/c'ed and pt. improved clinically w/ PT. Back to baseline and ready for d/c home. Follow-up Plan f/u w/ Dr. Baltazar in 1 wk; f/u w/ Dr. Pablo in 1 wk; f/u w/ Dr. Irby in 2 wks. Primary Care Provider Mar Irby MD Time spent on discharge: > 30 minutes Pending Labs Laboratory Tests Test 06/17/18 16:48 06/17/18 20:54 06/18/18 07:18 06/18/18 12:13 Bedside 93 128 121 126 Glucose mg/dL (70-220) mg/dL (70-220) mg/dL (70-220) mg/dL (70-220) MAR IRBY MD June 18, 2018 13:04
== END 2018-06-18 13:44 | disposition home or self-care (01) | DRG 233 ==
LOC: E/R 16:58 → TEL 18:46 → ICU 06-12 14:00 → OBSVTOIN 06-12 16:00 → 6WM 06-15 13:27
PROVIDERS: ADMIT Internal Medicine; ATTEND Internal Medicine
PROC: 4A023N7 Measurement of Cardiac Sampling and Pressure, Left Heart, Percutaneous Approach (ICD-10-PCS; 2018-06-11)
PROC: B210YZZ Fluoroscopy of Single Coronary Artery using Other Contrast (ICD-10-PCS; 2018-06-11)
PROC: B215YZZ Fluoroscopy of Left Heart using Other Contrast (ICD-10-PCS; 2018-06-11)
PROC: 021109W Bypass Coronary Artery, Two Arteries from Aorta with Autologous Venous Tissue, Open Approach (ICD-10-PCS; 2018-06-12)
PROC: 06BP4ZZ Excision of Right Saphenous Vein, Percutaneous Endoscopic Approach (ICD-10-PCS; 2018-06-12)
PROC: 5A1221Z Performance of Cardiac Output, Continuous (ICD-10-PCS; 2018-06-12)
PROC: 5A1223Z Performance of Cardiac Pacing, Continuous (ICD-10-PCS; 2018-06-12)
PROC: 02100Z9 Bypass Coronary Artery, One Artery from Left Internal Mammary, Open Approach (ICD-10-PCS; principal; 2018-06-12 12:30)
DX: I21.4 Non-ST elevation (NSTEMI) myocardial infarction (principal); I50.31 Acute diastolic (congestive) heart failure; D62 Acute posthemorrhagic anemia; I31.9 Disease of pericardium, unspecified; J98.11 Atelectasis; E11.69 Type 2 diabetes mellitus with other specified complication; E78.2 Mixed hyperlipidemia; I25.119 Atherosclerotic heart disease of native coronary artery with unspecified angina pectoris; R11.2 Nausea with vomiting, unspecified; Z87.891 Personal history of nicotine dependence
CPT/HCPCS: 36415; 36600; 71045; 80048; 80053; 80061; 82550; 82553; 82803; 82962; 83036; 83735; 84100; 84484; 85014; 85025; 85610; 85730; 86850; 86900; 86901; 86920; 87081; 93005; 93306; 93312; 93320; 93325; 93458; 93880; 94002; 94003; 94770; 97116; 97162; 97530; 99217; G0378; C1760; C1894; J0171; J0690; J1644; J1650; J1815; J1940; J2250; J2260; J2270; J2370; J2405; J2440; J2720; J3010; J3370; J3480; J7030; J7070; P9045; P9047; Q9967